=== PATIENT | male | born 1940 | race Caucasian/White ===

== ENCOUNTER 2018-01-05 15:57 | Inpatient (IN) | payer MEDICARE ==
[2018-01-05 17:43] LABS: Anisocytosis Slight; Basophils % (A) 1 %; Eosinophils # (A) 0.1 k/uL (0-0.7); Eosinophils % (A) 3 %; HCT 25.2 % (39.0-53.0); Lymphocytes # (A) 0.6 k/uL (1.0-4.8); Lymphocytes % (A) 26 %; MCV 96.9 fL (80.0-100.0); Macrocytosis Slight; Mean Platelet Volume 9.3; Monocytes # (A) 0.1 k/uL (0-1.0); Monocytes % (A) 2 %; Neutrophils # (A) 1.6 k/uL (1.3-7.7); Neutrophils % (A) 67 %; RDW 19.7 % (11.5-15.5); WBC 2.3 k/uL (3.8-10.6)
[2018-01-05 17:47] LABS: HGB 8.3 gm/dL (13.0-17.5)
[2018-01-05 17:50] LABS: INR 1.2 (<1.2); Prothrombin Time 11.6 sec (9.0-12.0)
[2018-01-05 17:55] LABS: ALT 243 U/L (21-72); AST 192 U/L (17-59); Albumin 2.8 g/dL (3.5-5.0); Alkaline Phosphatase 796 U/L (38-126); Amylase 55 U/L (30-110); Anion Gap 8 mmol/L; Blood Urea Nitrogen 24 mg/dL (9-20); Calcium 7.8 mg/dL (8.4-10.2); Carbon Dioxide 22 mmol/L (22-30); Chloride 102 mmol/L (98-107); Glucose 100 mg/dL (74-99); Lipase 223 U/L (23-300); Potassium 3.9 mmol/L (3.5-5.1); Sodium 132 mmol/L (137-145); Total Bilirubin 10.1 mg/dL (0.2-1.3); Total Protein 5.5 g/dL (6.3-8.2)
[2018-01-05 18:02] LABS: Platelet Count 62 k/uL (150-450); Target Cells Present; Tear Drop Cells Present
[2018-01-05 18:03] LABS: Dohle Bodies Present
[2018-01-05 18:19] LABS: Appearance,Urine Clear (Clear); Bilirubin,Urine 2+ (Negative); Blood,Urine Negative (Negative); Color,Urine Dark Brown; Glucose,Urine (UA) Negative (Negative); Ketones,Urine Negative (Negative); Leukocyte Esterase,Urine Negative (Negative); Nitrite,Urine Negative (Negative); Protein,Urine Trace (Negative); Specific Gravity,Urine 1.023 (1.001-1.035)
--- NOTE | 2018-01-05 18:57 | CT ---
EXAMINATION TYPE: CT abdomen pelvis w con DATE OF EXAM: 01/05/2018 COMPARISON: None HISTORY: Jaundice and abnormal labs CT DLP: 1147 mGycm Automated exposure control for dose reduction was used. TECHNIQUE: Helical acquisition of images was performed from the lung bases through the pelvis. CONTRAST: Performed without Oral Contrast and with IV Contrast, patient injected with 100 mL of Isovue 300. FINDINGS: LIVER/GB: There is mild/moderate dilation of the intrahepatic biliary tree, both the right and left h epatic lobes, with obstruction appearing to be secondary to 7 cm mean diameter dominant ill-defined r ight centimeters mean diameter hypodense lesion in the caudal posterior segment of the right hepatic lobe, intimately related to the kemar hepatis and bare area of the gallbladder. There are at least 3 other similar appearing focal liver lesions. * Immediately anterolateral to this dominant lesion is a 2 cm posterior segment right hepatic lobe h ypodense lesion. * Just posterior to the dominant lesion is a 3 cm hypodense posterior segment right hepatic lobe les ion. * Finally, in the upper medial segment left hepatic lobe is a 3 cm ill-defined hypodense lesion. The liver demonstrates diffusely scalloped margins with atrophy of the left hepatic lobe and prominen ce of the caudate lobe. There is prominence in the caliber of the portal splenic venous system and ev idence of abdominal varices. PANCREAS: No significant abnormality is seen. SPLEEN: No significant abnormality is seen. ADRENALS: No significant abnormality is seen. KIDNEYS: No significant abnormality is seen. FREE AIR: No free air is visualized. RETROPERITONEAL ADENOPATHY: None visualized REPRODUCTIVE ORGANS: No significant abnormality is seen URINARY BLADDER: No significant abnormality is seen. PELVIC ADENOPATHY: None visualized. OSSEOUS STRUCTURES: No focal lesions. BOWEL: Hepatic flexure shows indistinctness, extending to the liver capsule through the right anterio r pararenal space. This has the appearance of desmoplastic reactive edematous change rather than prim silvana colonic process. G-tube is in place. No other bowel findings. VASCULATURE: No acute findings. LUNG BASES: There is hyperinflation and evidence of mild cylindrical bronchiectasis. IMPRESSION: HEPATIC BILIARY OBSTRUCTION SECONDARY TO NEOPLASM.
--- NOTE | 2018-01-05 19:48 | ED ---
General Adult HPI - General Chief complaint: Recheck/Abnormal Lab/Rx Stated complaint: abn labs Time Seen by Provider: 01/05/18 16:53 Source: patient, family Mode of arrival: wheelchair Limitations: no limitations - History of Present Illness Initial comments: 77 years old male comes in with the jaundice he was at Dr. Garcia office today he was sent to ER since family noticed the obvious jaundice and is complaining about the mild abdominal pain he hasn't slept for 3 days feels quite weak appetite is down. Denies any headache no neck stiffness no chest pain or shortness of breath no abdominal pain no frequency urgency dysuria. He is aware that he has esophageal cancer and that spread into the ( - Related Data Home Medications Medication Instructions Recorded Confirmed Albuterol Sulfate [Proair Hfa] 1 puff INHALATION RT-DAILY 12/28/17 01/05/18 Fluticasone/Salmeterol [Advair 1 puff INHALATION RT-BID 12/28/17 01/05/18 250-50 Diskus] Morphine Sulfate ER [Ms Contin] 30 mg PO Q12HR PRN 12/28/17 01/05/18 Prochlorperazine [Compazine] 10 mg PO QID PRN 12/28/17 01/05/18 Tamsulosin [Flomax] 0.4 mg PO DAILY 12/28/17 01/05/18 Temazepam [Restoril] 15 mg PO HS 12/28/17 01/05/18 Tiotropium [place] [Spiriva 1 puff INHALATION RT-DAILY 12/28/17 01/05/18 Respimat] Doxazosin Mesylate 8 mg PO DAILY 01/05/18 01/05/18 Enalapril/Hydrochlorothiazide 1 tab PO DAILY 01/05/18 01/05/18 [Enalapril-Hctz 10-25 mg Tablet] Esomeprazole Magnesium [NexIUM] 40 mg PO DAILY 01/05/18 01/05/18 Ipratropium-Albuterol Nebulize 3 ml INHALATION RT-BID 01/05/18 01/05/18 [Duoneb 0.5 mg-3 mg/3 ml Soln] Lidocaine-Prilocaine Cream [Emla 1 applic TOPICAL DAILY PRN 01/05/18 01/05/18 Cream 2.5%/2.5%] oxyCODONE ER [OxyCONTIN] 10 mg PO HS PRN 01/05/18 01/05/18 Allergies Allergy/AdvReac Type Severity Reaction Status Date / Time No Known Allergies Allergy Verified 01/05/18 17:50 Review of Systems ROS Statement: Those systems with pertinent positive or pertinent negative responses have been documented in the HPI. ROS Other: All systems not noted in ROS Statement are negative. Past Medical History Past Medical History: Cancer, COPD, Hyperlipidemia, Hypertension, Osteoarthritis (OA), Prostate Disorder, Sleep Apnea/CPAP/BIPAP Additional Past Medical History / Comment(s): HOME OXYGEN PRN. 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 History of Any Multi-Drug Resistant Organisms: None Reported Past Surgical History: Hernia Repair, Orthopedic Surgery Additional Past Surgical History / Comment(s): VASECTOMY. ESOPHAGEAL SURGERY. Past Anesthesia/Blood Transfusion Reactions: No Reported Reaction Past Psychological History: Anxiety, Depression Smoking Status: Former smoker Past Alcohol Use History: None Reported Past Drug Use History: None Reported General Exam - General Exam Comments Initial Comments: General: The patient is awake and alert, obvious jaundice noticed Skin: Skin is warm and dry and no rashes or lesions are noted. Eye: Pupils are equal, round and reactive to light, extra-ocular movements are intact; there is normal conjunctiva bilaterally. Ears, nose, mouth and throat: There are moist mucous membranes and no oral lesions. Neck: The neck is supple, there is no tenderness or JVD. Cardiovascular: There is a regular rate and rhythm. No murmur, rub or gallop is appreciated. Respiratory: To auscultation bilateral, no wheezing no rhonchi no distress respiratory mireles noticed Gastrointestinal: Noticed feeding tube in place no actual focal area of tenderness noticed small sounds are positive slightly tender over right upper quadrant area no guarding no rebounds Back: There is no tenderness to palpation in the midline. There is no obvious deformity. Musculoskeletal: Normal ROM, no tenderness, There is no pedal edema. There is no calf tenderness or swelling. No cords were appreciated. Neurological: CN II-XII intact, Cranial nerves III through XII are intact. There are no obvious motor or sensory deficits. Coordination appears grossly intact. Speech is normal. Psychiatric: Cooperative, appropriate mood & affect, normal judgment. Limitations: no limitations Course Vital Signs 01/05/18 01/05/18 01/05/18 16:38 16:40 17:34 Temperature 98.7 F Pulse Rate 87 72 Respiratory 16 18 18 Rate Blood Pressure 115/75 126/63 O2 Sat by Pulse 97 97 Oximetry 01/05/18 01/05/18 17:40 18:40 Temperature Pulse Rate 81 82 Respiratory 18 18 Rate Blood Pressure 132/78 133/76 O2 Sat by Pulse 97 96 Oximetry Review of labs noticed his total bili is 10.1 AST ALT and alk phos days are elevated hemoglobin is 8.3. His hemoglobin is 10.[address] of the abdomen abdomen showed shows hepatic hepatobiliary obstruction because of the neoplasm. CT was reviewed findings were discussed with the patient, he be admitted to Dr. Sousa's service and be consulted along with the Dr. Garcia Medical Decision Making - Lab Data Result diagrams: 01/05/18 17:28 01/05/18 17:28 Lab Results 01/05/18 01/05/18 01/05/18 Range/Units 17:28 17:28 17:28 WBC 2.3 L (3.8-10.6) k/uL RBC 2.60 L (4.30-5.90) m/uL Hgb 8.3 L D (13.0-17.5) gm/dL Hct 25.2 L (39.0-53.0) % MCV 96.9 (80.0-100.0) fL MCH 32.0 (25.0-35.0) pg MCHC 33.0 (31.0-37.0) g/dL RDW 19.7 H (11.5-15.5) % Plt Count 62 L D (150-450) k/uL Neutrophils % 67 % Lymphocytes % 26 % Monocytes % 2 % Eosinophils % 3 % Basophils % 1 % Neutrophils # 1.6 (1.3-7.7) k/uL Lymphocytes # 0.6 L (1.0-4.8) k/uL Monocytes # 0.1 (0-1.0) k/uL Eosinophils # 0.1 (0-0.7) k/uL Basophils # 0.0 (0-0.2) k/uL Manual Slide Review Performed Dohle Bodies Present Anisocytosis Slight Macrocytosis Slight Target Cells Present Tear Drop Cells Present PT (9.0-12.0) sec INR (<1.2) Sodium 132 L (137-145) mmol/L Potassium 3.9 (3.5-5.1) mmol/L Chloride 102 (98-107) mmol/L Carbon Dioxide 22 (22-30) mmol/L Anion Gap 8 mmol/L BUN 24 H (9-20) mg/dL Creatinine 0.60 L (0.66-1.25) mg/dL Est GFR (CKD-EPI)AfAm >90 (>60 ml/min/1.73 sqM) Est GFR (CKD-EPI)NonAf >90 (>60 ml/min/1.73 sqM) Glucose 100 H (74-99) mg/dL Plasma Lactic Acid Julian 0.9 (0.7-2.0) mmol/L Calcium 7.8 L (8.4-10.2) mg/dL Total Bilirubin 10.1 H (0.2-1.3) mg/dL AST 192 H (17-59) U/L ALT 243 H (21-72) U/L Alkaline Phosphatase 796 H (38-126) U/L Troponin I (0.000-0.034) ng/mL Total Protein 5.5 L (6.3-8.2) g/dL Albumin 2.8 L (3.5-5.0) g/dL Amylase 55 (30-110) U/L Lipase 223 (23-300) U/L Urine Color Urine Appearance (Clear) Urine pH (5.0-8.0) Ur Specific [place] (1.001-1.035) Urine Protein (Negative) Urine Glucose (UA) (Negative) Urine Ketones (Negative) Urine Blood (Negative) Urine Nitrite (Negative) Urine Bilirubin (Negative) Urine Urobilinogen (<2.0) mg/dL Ur Leukocyte Esterase (Negative) 01/05/18 01/05/18 01/05/18 Range/Units 17:28 17:28 18:00 WBC (3.8-10.6) k/uL RBC (4.30-5.90) m/uL Hgb (13.0-17.5) gm/dL Hct (39.0-53.0) % MCV (80.0-100.0) fL MCH (25.0-35.0) pg MCHC (31.0-37.0) g/dL RDW (11.5-15.5) % Plt Count (150-450) k/uL Neutrophils % % Lymphocytes % % Monocytes % % Eosinophils % % Basophils % % Neutrophils # (1.3-7.7) k/uL Lymphocytes # (1.0-4.8) k/uL Monocytes # (0-1.0) k/uL Eosinophils # (0-0.7) k/uL Basophils # (0-0.2) k/uL Manual Slide Review Dohle Bodies Anisocytosis Macrocytosis Target Cells Tear Drop Cells PT 11.6 (9.0-12.0) sec INR 1.2 H (<1.2) Sodium (137-145) mmol/L Potassium (3.5-5.1) mmol/L Chloride (98-107) mmol/L Carbon Dioxide (22-30) mmol/L Anion Gap mmol/L BUN (9-20) mg/dL Creatinine (0.66-1.25) mg/dL Est GFR (CKD-EPI)AfAm (>60 ml/min/1.73 sqM) Est GFR (CKD-EPI)NonAf (>60 ml/min/1.73 sqM) Glucose (74-99) mg/dL Plasma Lactic Acid Julian (0.7-2.0) mmol/L Calcium (8.4-10.2) mg/dL Total Bilirubin (0.2-1.3) mg/dL AST (17-59) U/L ALT (21-72) U/L Alkaline Phosphatase (38-126) U/L Troponin I <0.012 (0.000-0.034) ng/mL Total Protein (6.3-8.2) g/dL Albumin (3.5-5.0) g/dL Amylase (30-110) U/L Lipase (23-300) U/L Urine Color Dark Brown Urine Appearance Clear (Clear) Urine pH 6.0 (5.0-8.0) Ur Specific [place] 1.023 (1.001-1.035) Urine Protein Trace H (Negative) Urine Glucose (UA) Negative (Negative) Urine Ketones Negative (Negative) Urine Blood Negative (Negative) Urine Nitrite Negative (Negative) Urine Bilirubin 2+ H (Negative) Urine Urobilinogen 4.0 (<2.0) mg/dL Ur Leukocyte Esterase Negative (Negative) Disposition Clinical Impression: Liver mass, Jaundice Disposition: ADMITTED IP TO THIS HOSP Condition: Good Referrals: Martin Ron MD [Primary Care Provider] - 1-2 days
[2018-01-05] MEDS ORDERED: NALOXONE 0.4 MG/ML 1 ML VIAL IV PRN (19:54)
[2018-01-05] MEDS ORDERED: ONDANSETRON 4 MG/2 ML VIAL IVP PRN (19:54)
[2018-01-05] MEDS ORDERED: MORPHINE SULFATE 4 MG/ML SYRINGE IV PRN (19:54)
[2018-01-05] MEDS ORDERED: ACETAMINOPHEN TAB 325 MG TAB PO PRN (19:54)
[2018-01-05] MEDS ORDERED: PROCHLORPERAZINE 10 MG TAB PO PRN (19:59)
[2018-01-05] MEDS ORDERED: oxyCODONE ER 10 MG TAB.ER.12H PO PRN (19:59)
[2018-01-05] MEDS ORDERED: LIDOCAINE-PRILOCAINE 2.5-2.5% CREAM 5 GM TUBE TOPICAL PRN (19:59)
[2018-01-05] MEDS ORDERED: MORPHINE SULFATE ER 30 MG TABLET PO PRN (19:59)
[2018-01-05] MEDS: IPRATROPIUM-ALBUTEROL 3 ML NEB INHALATION SCH (20:41)
[2018-01-05] MEDS: SYMBICORT 80-4.5 MCG INHALER INHALATION SCH (20:41)
[2018-01-05] MEDS: DEXTROSE 5%-0.9% NACL 1,000 ML IV SCH (22:08)
[2018-01-05] MEDS: TEMAZEPAM 15 MG CAP PO SCH (22:09)
[2018-01-06] MEDS ORDERED: ALBUTEROL NEBULIZED 2.5 MG/3 ML INHALATION SCH (08:00)
[2018-01-06] MEDS ORDERED: NON-FORMULARY DRUG (Tiotropium Bromide [Spiriva Respimat] 1 PUFF) INHALATION SCH (08:00)
[2018-01-06] MEDS: SYMBICORT 80-4.5 MCG INHALER INHALATION SCH ×2 (08:17→20:33)
[2018-01-06] MEDS: IPRATROPIUM-ALBUTEROL 3 ML NEB INHALATION SCH ×2 (08:17→20:33)
[2018-01-06] MEDS ORDERED: LISINOPRIL 20 MG TAB PO SCH (09:00)
[2018-01-06] MEDS ORDERED: DOXAZOSIN 4 MG TAB PO SCH (09:00)
[2018-01-06] MEDS ORDERED: HYDROCHLOROTHIAZIDE 25 MG TAB PO SCH (09:00)
[2018-01-06] MEDS: PANTOPRAZOLE 40 MG TABLET PO SCH (09:43)
[2018-01-06] MEDS: TAMSULOSIN 0.4 MG CAP.ER.24H PO SCH (09:45)
--- NOTE | 2018-01-06 11:23 | P.CONS ---
History of Present Illness - Reason for Consult Consult date: 01/06/18 Hepatobiliary tumor Requesting physician: Steffen Recinos - History of Present Illness 77-year-old gentleman diagnosed June 2017 in [place] with with metastatic esophageal cancer s/p EGD/colonoscopy with feeding gastrostomy tube placement. Admitted with mild abdominal pain and new onset jaundice [address] abdomen and pelvis reported mild to moderate dilatation of intrahepatic biliary tree both right and left hepatic lobes with obstruction secondary to neoplasm. No abnormalities seen in the spleen or pancreas. He received chemo/radiation but only had 10 treatments of radiation "it did not work". Last EGD about 6 weeks ago to his memory the "cancer was gone". Presently passed 2 red blood tinged BM this morning "its hemorrhoidal". Denies F /C/hematemesis or melena. Admission white count 2.3. Hemoglobin 8.3. Platelet 62,000. INR 1.2. Total bilirubin 10.1. AST 192. ALT 243. AP 796. Lipase 223. No previous labs to review for comparison. Afebrile. Denies hematemesis hematochezia melena. Review of Systems Constitutional: Denies fever, chills, sweats. HEENT: Negative for migraines, blurred vision or loss, earaches, drainage, tinnitus, oral mucosal lesions, dysphagia, or odynophagia. Cardiac: Negative for chest pain, arrhythmias, or palpitation. Respiratory: Negative for shortness of breath, hemoptysis, cough, or sputum production. Gastrointestinal: See HPI for pertinent findings. Genitourinary: Negative for hematuria, urgency, frequency, polyuria, dysuria, or penile discharge. Musculoskeletal: Negative for muscle aches, swelling, arthritis, and arthralgias. Neurologic: Negative for stroke or TIA. Endocrine: Negative for thyroid problems. Skin: Negative for rash or itching. Psychiatric: Negative history for depression and anxietys Past Medical History Past Medical History: Cancer, COPD, Hyperlipidemia, Hypertension, Osteoarthritis (OA), Pneumonia, Prostate Disorder, Sleep Apnea/CPAP/BIPAP Additional Past Medical History / Comment(s): HOME OXYGEN PRN.lt eye cataract that needs to have sx had rt cataract done already, pt stated he has esophageal cancer with mets to bone and liver and recieved first chemo tx 1 week ago. History of Any Multi-Drug Resistant Organisms: None Reported Past Surgical History: Hernia Repair, Orthopedic Surgery Additional Past Surgical History / Comment(s): VASECTOMY.rt knee arthroscopy, rt eye cataract. egd/dilations/bx Past Anesthesia/Blood Transfusion Reactions: No Reported Reaction Smoking Status: Former smoker - Past Family History Mother Family Medical History: Coronary Artery Disease (CAD), Dementia Additional Family Medical History / Comment(s): "heart disease" Father Additional Family Medical History / Comment(s): "heart disease" Medications and Allergies Home Medications Medication Instructions Recorded Confirmed Type Albuterol Sulfate [Proair Hfa] 1 puff INHALATION RT-DAILY 12/28/17 01/06/18 History Fluticasone/Salmeterol [Advair 1 puff INHALATION RT-BID 12/28/17 01/06/18 History 250-50 Diskus] Morphine Sulfate ER [Ms Contin] 30 mg PO Q12HR PRN 12/28/17 01/06/18 History Prochlorperazine [Compazine] 10 mg PO QID PRN 12/28/17 01/06/18 History Tamsulosin [Flomax] 0.4 mg PO HS 12/28/17 01/06/18 History Temazepam [Restoril] 15 mg PO HS 12/28/17 01/06/18 History Tiotropium [place] [Spiriva 1 puff INHALATION RT-DAILY 12/28/17 01/06/18 History Respimat] Esomeprazole Magnesium [NexIUM] 40 mg PO DAILY 01/05/18 01/06/18 History Ipratropium-Albuterol Nebulize 3 ml INHALATION RT-BID 01/05/18 01/06/18 History [Duoneb 0.5 mg-3 mg/3 ml Soln] Lidocaine-Prilocaine Cream [Emla 1 applic TOPICAL DAILY PRN 01/05/18 01/06/18 History Cream 2.5%/2.5%] oxyCODONE ER [OxyCONTIN] 10 mg PO HS PRN 01/05/18 01/06/18 History Allergies Allergy/AdvReac Type Severity Reaction Status Date / Time No Known Allergies Allergy Verified 01/05/18 17:50 Physical Exam Vitals: Vital Signs Temp Pulse Pulse Resp BP BP Pulse Ox 01/06/18 08:28 80 01/06/18 08:17 80 01/06/18 07:00 97.9 F 64 16 111/69 96 01/05/18 21:45 17 01/05/18 21:40 98.0 F 80 16 123/76 97 01/05/18 19:50 76 18 131/75 96 01/05/18 18:40 82 18 133/76 96 01/05/18 17:40 81 18 132/78 97 01/05/18 17:34 18 01/05/18 16:40 72 18 126/63 97 01/05/18 16:38 98.7 F 87 16 115/75 97 Intake and Output 01/05/18 01/06/18 01/06/18 22:59 06:59 14:59 Intake Total 590 600 Balance 590 600 Intake: Intake, IV Titration 600 Amount Dextrose 5%-0.9% NaCl 1, 600 000 ml @ 75 mls/hr IV . [id number] EDDY Rx#:[id number] Oral 590 Other: Voiding Method Toilet Toilet # Voids 3 Weight 68.039 kg 68.039 kg General appearance: The patient is alert, oriented, in no acute distress. Jaundice HET: Head is normocephalic and atraumatic. Pupils are equal and reactive. Sclera icteric Oropharynx is clear without lesions. Neck: Supple without lymphadenopathy. Trachea midline. Heart: S1 S2. Regular rate and rhythm. Lungs: No crackles or wheezes are heard. Abdomen: Soft, nontender, nondistended with bowel sounds. Gastrostomy tube present No peritoneal signs. No palpable organomegaly or masses. Extremities: Normal skin color and turgor. No cyanosis, rash, ulceration, clubbing, or edema. Radial and pedal pulses are 2/4 bilaterally. Neurological: No focal deficits. Strength and sensation are grossly intact. Results CBC & Chem 7: 01/07/18 06:51 01/07/18 06:51 Labs: Abnormal Lab Results - Last 24 Hours (Table) 01/05/18 01/05/18 01/05/18 Range/Units 17:28 17:28 17:28 WBC 2.3 L (3.8-10.6) k/uL RBC 2.60 L (4.30-5.90) m/uL Hgb 8.3 L D (13.0-17.5) gm/dL Hct 25.2 L (39.0-53.0) % RDW 19.7 H (11.5-15.5) % Plt Count 62 L D (150-450) k/uL Lymphocytes # 0.6 L (1.0-4.8) k/uL INR 1.2 H (<1.2) Sodium 132 L (137-145) mmol/L BUN 24 H (9-20) mg/dL Creatinine 0.60 L (0.66-1.25) mg/dL Glucose 100 H (74-99) mg/dL Calcium 7.8 L (8.4-10.2) mg/dL Total Bilirubin 10.1 H (0.2-1.3) mg/dL AST 192 H (17-59) U/L ALT 243 H (21-72) U/L Alkaline Phosphatase 796 H (38-126) U/L Total Protein 5.5 L (6.3-8.2) g/dL Albumin 2.8 L (3.5-5.0) g/dL Urine Protein (Negative) Urine Bilirubin (Negative) 01/05/18 Range/Units 18:00 WBC (3.8-10.6) k/uL RBC (4.30-5.90) m/uL Hgb (13.0-17.5) gm/dL Hct (39.0-53.0) % RDW (11.5-15.5) % Plt Count (150-450) k/uL Lymphocytes # (1.0-4.8) k/uL INR (<1.2) Sodium (137-145) mmol/L BUN (9-20) mg/dL Creatinine (0.66-1.25) mg/dL Glucose (74-99) mg/dL Calcium (8.4-10.2) mg/dL Total Bilirubin (0.2-1.3) mg/dL AST (17-59) U/L ALT (21-72) U/L Alkaline Phosphatase (38-126) U/L Total Protein (6.3-8.2) g/dL Albumin (3.5-5.0) g/dL Urine Protein Trace H (Negative) Urine Bilirubin 2+ H (Negative) CT scan - abdomen: report reviewed (Dr. 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 Oncology records requested for review. EGD/ERCP biliary stent discussed. 2. Tube feeds as tolerated. Nothing by mouth after midnight. 3. Protonix 40 mg IV twice daily. CMP PT/INR CBC monitoring. The filtration supervisor has discussed the risks, benefits and alternative therapies for the above-mentioned procedure and for both sedation/analgesia as well as necessary blood product administration, if indicated, as they pertain to this patient. The patient has indicated understanding and acceptance of the risks and procedures discussed. Thank you for this kind referral and the opportunity to participate in the care of your patient. This consultation was discussed with Dr. Rayo. The impression and plan of care have been directed as dictated.
[2018-01-06] MEDS ORDERED: BISACODYL 10 MG SUPP RECTAL STA (13:23)
--- NOTE | 2018-01-06 15:22 | P.HPIM ---
History of Present Illness H&P Date: 01/06/18 Chief Complaint: Jaundice, abdominal pain, weakness, decreased appetite This is a 77-year-old male patient of Dr. Martin Ron with past medical history significant for esophageal cancer diagnosed in June 2017 currently undergoing chemotherapy and has had radiation therapy to the bones in the upper thorax. Patient is undergone previous EGDs and esophageal dilatations 3 in the past. 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 Also history of COPD, hyperlipidemia, hypertension, osteoarthritis, benign prostatic hypertrophy, obstructive sleep apnea. Patient has been treated at the [facility] in [place] and started chemotherapy in July of this year. In October his oncologist changed his chemotherapy and he received 2 doses of this new medication which made him extremely's ill with diarrhea, nausea, weakness. He then returned to [place] 3 weeks ago and is now followed by Dr. Garcia. Dr. Garcia kept him on the second chemotherapy treatment and decrease the dose by 20%. Patient was sent by Dr. Garcia to [facility] emergency center for admission. Patient states he has occasional sharp pain in his right abdomen. He is a little bit nauseated. He does state his urine has changed to bright yellow almost brown color. He did have a bowel movement this morning but feels constipated. He denies any itchiness. Since his last chemotherapy, patient developed diarrhea that was then followed by constipation. Patient also has a PEG tube in place and tube feedings have been resumed. He eats a small amount of soft food by mouth. CAT scan of the abdomen and pelvis revealed hepatobiliary obstruction secondary to neoplasm. GI consult was added and patient was admitted to the oncology unit. Patient presented with pancytopenia with white count of 2.3, hemoglobin 8.3, platelet count 62. Creatinine 0.60. Lactic acid was 0.9. Total bilirubin 10.1, AST 192, ALT 243, alkaline phosphatase 796. Amylase and lipase were normal. Urine was dark brown with 2+ bilirubin. Review of Systems All systems: negative Constitutional: Reports fatigue, Reports lethargy, Reports malaise, Reports poor appetite, Reports weakness, Reports weight loss, Denies chills, Denies fever Eyes: denies blurred vision, denies pain Ears, nose, mouth and throat: Denies headache, Denies sore throat Cardiovascular: Denies chest pain, Denies decreased exercise tolerance, Denies dyspnea on exertion, Denies edema, Denies leg edema, Denies shortness of breath , Denies syncope Respiratory: Denies cough, Denies cough with sputum, Denies dyspnea, Denies excessive sputum, Denies hemoptysis, Denies home oxygen, Denies wheezing Gastrointestinal: Reports abdominal pain, Reports constipation, Reports diarrhea , Reports loss of appetite, Reports nausea, Reports vomiting Musculoskeletal: Denies myalgias Integumentary: Denies pruritus, Denies rash Neurological: Denies numbness, Denies weakness Psychiatric: Denies anxiety, Denies depression Endocrine: Denies fatigue, Denies weight change Past Medical History Past Medical History: Cancer, COPD, Hyperlipidemia, Hypertension, Osteoarthritis (OA), Pneumonia, Prostate Disorder, Sleep Apnea/CPAP/BIPAP Additional Past Medical History / Comment(s): HOME OXYGEN PRN.lt eye cataract that needs to have sx had rt cataract done already, pt stated he has esophageal cancer with mets to bone and liver on chemotherapy and status post radiation for bone metastases. History of Any Multi-Drug Resistant Organisms: None Reported Past Surgical History: Hernia Repair, Orthopedic Surgery Additional Past Surgical History / Comment(s): VASECTOMY.rt knee arthroscopy, rt eye cataract removal and intraocular lens implants, multiple EGDs, 3 esophageal dilatations, esophageal biopsy Past Anesthesia/Blood Transfusion Reactions: No Reported Reaction Smoking Status: Former smoker Additional Past Alcohol Use History / Comment(s): Patient was a smoker starting at age 15 1 pack a day and quit in 1990. No illicit drug use. Patient lives with his . They winter in [place] and lived in [place] for the bond. 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 - Past Family History Mother Family Medical History: Coronary Artery Disease (CAD), Dementia Additional Family Medical History / Comment(s): "heart disease" Father Additional Family Medical History / Comment(s): "heart disease" Medications and Allergies Home Medications Medication Instructions Recorded Confirmed Type Albuterol Sulfate [Proair Hfa] 1 puff INHALATION RT-DAILY 12/28/17 01/06/18 History Fluticasone/Salmeterol [Advair 1 puff INHALATION RT-BID 12/28/17 01/06/18 History 250-50 Diskus] Morphine Sulfate ER [Ms Contin] 30 mg PO Q12HR PRN 12/28/17 01/06/18 History Prochlorperazine [Compazine] 10 mg PO QID PRN 12/28/17 01/06/18 History Tamsulosin [Flomax] 0.4 mg PO HS 12/28/17 01/06/18 History Temazepam [Restoril] 15 mg PO HS 12/28/17 01/06/18 History Tiotropium [place] [Spiriva 1 puff INHALATION RT-DAILY 12/28/17 01/06/18 History Respimat] Esomeprazole Magnesium [NexIUM] 40 mg PO DAILY 01/05/18 01/06/18 History Ipratropium-Albuterol Nebulize 3 ml INHALATION RT-BID 01/05/18 01/06/18 History [Duoneb 0.5 mg-3 mg/3 ml Soln] Lidocaine-Prilocaine Cream [Emla 1 applic TOPICAL DAILY PRN 01/05/18 01/06/18 History Cream 2.5%/2.5%] oxyCODONE ER [OxyCONTIN] 10 mg PO HS PRN 01/05/18 01/06/18 History Allergies Allergy/AdvReac Type Severity Reaction Status Date / Time No Known Allergies Allergy Verified 01/05/18 17:50 Physical Exam Vitals: Vital Signs Temp Pulse Pulse Resp BP BP Pulse Ox 01/06/18 08:28 80 01/06/18 08:17 80 01/06/18 07:00 97.9 F 64 16 111/69 96 01/05/18 21:45 17 01/05/18 21:40 98.0 F 80 16 123/76 97 01/05/18 19:50 76 18 131/75 96 01/05/18 18:40 82 18 133/76 96 01/05/18 17:40 81 18 132/78 97 01/05/18 17:34 18 01/05/18 16:40 72 18 126/63 97 01/05/18 16:38 98.7 F 87 16 115/75 97 Intake and Output 01/05/18 01/06/18 01/06/18 22:59 06:59 14:59 Intake Total 590 600 Balance 590 600 Intake: Intake, IV Titration 600 Amount Dextrose 5%-0.9% NaCl 1, 600 000 ml @ 75 mls/hr IV . [id number] Rx#:[id number] Oral 590 Other: Voiding Method Toilet Toilet # Voids 3 Weight 68.039 kg 68.039 kg Gen: This is a thin 77-year-old male. Patient is sitting up in a chair. Generalized jaundice noted. HEENT: Head is atraumatic, normocephalic. Pupils equal, round. Sclerae is icteric. NECK: Supple. No JVD. No lymphadenopathy. No thyromegaly. LUNGS: Clear to auscultation. No wheezes or rhonchi. No intercostal retractions. HEART: Regular rate and rhythm. No murmur. ABDOMEN: Soft. Bowel sounds are present. No masses. Mild right upper quadrant tenderness. Feeding tube in place. EXTREMITIES: No pedal edema. No calf tenderness. NEUROLOGICAL: Patient is awake, alert and oriented x3. Cranial nerves 2 through 12 are grossly intact. Results CBC & Chem 7: 01/05/18 17:28 01/05/18 17:28 Labs: Abnormal Lab Results - Last 24 Hours (Table) 01/05/18 01/05/18 01/05/18 Range/Units 17:28 17:28 17:28 WBC 2.3 L (3.8-10.6) k/uL RBC 2.60 L (4.30-5.90) m/uL Hgb 8.3 L D (13.0-17.5) gm/dL Hct 25.2 L (39.0-53.0) % RDW 19.7 H (11.5-15.5) % Plt Count 62 L D (150-450) k/uL Lymphocytes # 0.6 L (1.0-4.8) k/uL INR 1.2 H (<1.2) Sodium 132 L (137-145) mmol/L BUN 24 H (9-20) mg/dL Creatinine 0.60 L (0.66-1.25) mg/dL Glucose 100 H (74-99) mg/dL Calcium 7.8 L (8.4-10.2) mg/dL Total Bilirubin 10.1 H (0.2-1.3) mg/dL AST 192 H (17-59) U/L ALT 243 H (21-72) U/L Alkaline Phosphatase 796 H (38-126) U/L Total Protein 5.5 L (6.3-8.2) g/dL Albumin 2.8 L (3.5-5.0) g/dL Urine Protein (Negative) Urine Bilirubin (Negative) 01/05/18 Range/Units 18:00 WBC (3.8-10.6) k/uL RBC (4.30-5.90) m/uL Hgb (13.0-17.5) gm/dL Hct (39.0-53.0) % RDW (11.5-15.5) % Plt Count (150-450) k/uL Lymphocytes # (1.0-4.8) k/uL INR (<1.2) Sodium (137-145) mmol/L BUN (9-20) mg/dL Creatinine (0.66-1.25) mg/dL Glucose (74-99) mg/dL Calcium (8.4-10.2) mg/dL Total Bilirubin (0.2-1.3) mg/dL AST (17-59) U/L ALT (21-72) U/L Alkaline Phosphatase (38-126) U/L Total Protein (6.3-8.2) g/dL Albumin (3.5-5.0) g/dL Urine Protein Trace H (Negative) Urine Bilirubin 2+ H (Negative) Thrombosis Risk Factor Assmnt - DVT/VTE Prophylaxis DVT/VTE Prophylaxis: Pharmacologic Prophylaxis ordered - Choose All That Apply Any of the Below Risk Factors Present?: Yes Each Factor Represents 1 point: Serious lung disease incl. pneumonia (< 1month) Other Risk Factors: Yes Each Risk Factor Represents 2 Points: Age 61-74 years, Malignancy Thrombosis Risk Factor Assessment Total Risk Factor Score: 5 Thrombosis Risk Factor Assessment Level: High Risk Assessment and Plan Plan: 1. Obstructive jaundice secondary to esophageal cancer and metastatic disease of the liver. GI consult is appreciated. Plan is for EGD/ERCP biliary stent tomorrow. 2. Esophageal cancer with metastatic disease to the liver and bone status post radiation therapy and chemotherapy. Oncology consult. 3. Pancytopenia secondary to chemotherapy. 4. Severe protein calorie malnutrition with albumin 2.8. Patient is continued on tube feedings. 5. COPD stable without exacerbation. Continue DuoNeb treatments twice daily and Symbicort twice daily.. 6. Benign prostatic hypertrophy. Continue Flomax 0.4 mg daily. 7. History of hypertension but taken off medications secondary to weight loss. Monitor blood pressure. 8. Chronic pain syndrome. Patient will be continued on OxyContin 10 mg ER at bedtime as needed, MS Contin 30 mg every 12 hours as needed and IV MS as needed for breakthrough pain.. 9. DVT prophylaxis. No heparin due to thrombocytopenia. 10. Gastroesophageal reflux disease and GI prophylaxis. Protonix. Patient will be admitted to the hospital for a minimum of 2 night stay. Discharge plan: Return home Impression and plan of care have been directed as dictated by the signing physician. Nikole Cisneros nurse practitioner acting as scribe for signing physician.
--- NOTE | 2018-01-06 16:54 | P.CONS ---
History of Present Illness - Reason for Consult Consult date: 01/06/18 Metastatic Esophageal Requesting physician: Madelyn Mckay - Chief Complaint Jaundice - History of Present Illness Mr Bustos is a pleasant white male with a known diagnosis of metastatic esophageal adenocarcinoma, in treatment at the [facility] in [place], [place]. the patient moved back to [place] for the summer, and was therefore seen here to establish care. He had presented initially in early 06/18 with complains of progressive difficulty in swallowing more to solids than liquids with a feeling of food sticking in his mid lower chest area. He had lost about 30 pounds since mid 2016. He had an EGD on 06/03/17 which showed a distal esophageal mass with stricture. He had dilation, with biopsy showing poorly differentiated carcinoma , favoring adenocarcinoma. Her-2 was negative by fish. Colonoscopy on the same day was negative other than internal hemorrhoids, diverticulosis, and for pre-4 mm benign tubular adenomas that were removed. CT scan of the chest and abdomen on 06/12/17 showed diffuse thickening of the mid and distal esophagus, with mildly enlarged mediastinal nodes with the largest 1.5 x 2 cm in the precarinal area, as well as a 1.5 cm right hilar node. He had a PET scan on which showed multiple liver metastasis with SUV of 7.8, the known primary malignancy, as well as a destructive lesion in the left transverse process of C7 with SUV 9, left fifth rib, T9-L1 involvement, as well as uptake with SUV of 3.4 in AP window/mediastinal nodes. The patient was started on FOLFOX on 07/01/17. Due to side effects specifically mouth sores and weight loss after cycle 1 dose was reduced by 15% with cycle 2. He tolerated the regimen well with dose reduction. After cycle 3 he developed dysphagia again and had dilatation along with PEG tube placement. He had a repeat PET scan on 09/15/17 that showed a mixed response. With improvement at the primary site, the ribs and the vertebrae. However there appeared to be new disease at C2, as well as progression in the size and number of multiple hepatic metastasis. For reference the largest located at the gallbladder fossa now measured 4.5 x 4.2 x 4 cm with SUV of 7.8 whereas previously it had been 2.6 x 2.6 x 2.6 cm with the same SUV. he received palliative radiation to the C7 completing that on 10/13/17. It did not help with the pain in the left arm. The patient was referred to [facility], and had a liver biopsy, apparently for biomarker testing. He is not aware of any results in that regard. It was recommended that his regimen be changed to FOLFIRI, and that he receive palliative radiation to the esophagus. he refuses radiation, but did start FOLFIRI on 11/04/17. He was admitted to the hospital after cycle 2 because of neutropenic sepsis. He did receive Neupogen. He has also been getting Xgeva for his bone metastases. He was seen for his first consult on 12/23/17. Mr. Bustos presented for follow-up visit with [facility] on 01/05/18. He was noted to have increasing jaundice to sclera and skin. He was directed to [facility] ED for further working up of obstructive Jaundice. CT scan abdomen and pelvis revealed hepatobiliary obstruction. Plan for ERCP with biliary stent on 01/07/18 Review of Systems A 14 point review of systems assessed and completed and all negative except HPI Past Medical History Past Medical History: Cancer, COPD, Hyperlipidemia, Hypertension, Osteoarthritis (OA), Pneumonia, Prostate Disorder, Sleep Apnea/CPAP/BIPAP Additional Past Medical History / Comment(s): HOME OXYGEN PRN.lt eye cataract that needs to have sx had rt cataract done already, pt stated he has esophageal cancer with mets to bone and liver on chemotherapy and status post radiation for bone metastases. History of Any Multi-Drug Resistant Organisms: None Reported Past Surgical History: Hernia Repair, Orthopedic Surgery Additional Past Surgical History / Comment(s): VASECTOMY.rt knee arthroscopy, rt eye cataract removal and intraocular lens implants, multiple EGDs, 3 esophageal dilatations, esophageal biopsy Past Anesthesia/Blood Transfusion Reactions: No Reported Reaction Smoking Status: Former smoker Additional Past Alcohol Use History / Comment(s): Patient was a smoker starting at age 15 1 pack a day and quit in 1990. No illicit drug use. Patient lives with his . They winter in [place] and lived in [place] for the bond. 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 - Past Family History Mother Family Medical History: Coronary Artery Disease (CAD), Dementia Additional Family Medical History / Comment(s): "heart disease" Father Additional Family Medical History / Comment(s): "heart disease" Medications and Allergies Home Medications Medication Instructions Recorded Confirmed Type Albuterol Sulfate [Proair Hfa] 1 puff INHALATION RT-DAILY 12/28/17 01/06/18 History Fluticasone/Salmeterol [Advair 1 puff INHALATION RT-BID 12/28/17 01/06/18 History 250-50 Diskus] Morphine Sulfate ER [Ms Contin] 30 mg PO Q12HR PRN 12/28/17 01/06/18 History Prochlorperazine [Compazine] 10 mg PO QID PRN 12/28/17 01/06/18 History Tamsulosin [Flomax] 0.4 mg PO HS 12/28/17 01/06/18 History Temazepam [Restoril] 15 mg PO HS 12/28/17 01/06/18 History Tiotropium [place] [Spiriva 1 puff INHALATION RT-DAILY 12/28/17 01/06/18 History Respimat] Esomeprazole Magnesium [NexIUM] 40 mg PO DAILY 01/05/18 01/06/18 History Ipratropium-Albuterol Nebulize 3 ml INHALATION RT-BID 01/05/18 01/06/18 History [Duoneb 0.5 mg-3 mg/3 ml Soln] Lidocaine-Prilocaine Cream [Emla 1 applic TOPICAL DAILY PRN 01/05/18 01/06/18 History Cream 2.5%/2.5%] oxyCODONE ER [OxyCONTIN] 10 mg PO HS PRN 01/05/18 01/06/18 History Allergies Allergy/AdvReac Type Severity Reaction Status Date / Time No Known Allergies Allergy Verified 01/05/18 17:50 Physical Exam Vitals: Vital Signs Temp Pulse Pulse Resp BP BP Pulse Ox 01/06/18 16:28 99 F 82 16 120/60 97 01/06/18 08:28 80 01/06/18 08:17 80 01/06/18 07:00 97.9 F 64 16 111/69 96 01/05/18 21:45 17 01/05/18 21:40 98.0 F 80 16 123/76 97 01/05/18 19:50 76 18 131/75 96 01/05/18 18:40 82 18 133/76 96 08/07/18 17:40 81 18 132/78 97 01/05/18 17:34 18 01/05/18 16:40 72 18 126/63 97 Intake and Output 01/06/18 01/06/18 01/06/18 06:59 14:59 22:59 Intake Total 600 Balance 600 Intake: Intake, IV Titration 600 Amount Dextrose 5%-0.9% NaCl 1, 600 000 ml @ 75 mls/hr IV . [id number] Rx#:[id number] Other: Voiding Method Toilet # Voids 3 Weight 68.039 kg - Constitutional General appearance: cooperative, no acute distress - EENT Eyes: EOMI, dentition normal, scleral icterus ENT: NA/AT, normal oropharynx - Neck Supple Neck: normal ROM - Respiratory Respiratory: bilateral: CTA (No increased effort) - Cardiovascular Rhythm: regular Heart sounds: normal: S1, S2 - Gastrointestinal General gastrointestinal: distended, hepatomegaly, soft - Integumentary Integumentary: jaundiced - Neurologic no focal defects Neurologic: CNII-XII intact - Musculoskeletal Musculoskeletal: generalized weakness, strength equal bilaterally - Psychiatric Psychiatric: A&O x's 3, appropriate affect, intact judgment & insight Results CBC & Chem 7: 01/05/18 17:28 01/05/18 17:28 Labs: Abnormal Lab Results - Last 24 Hours (Table) 01/05/18 01/05/18 01/05/18 Range/Units 17:28 17:28 17:28 WBC 2.3 L (3.8-10.6) k/uL RBC 2.60 L (4.30-5.90) m/uL Hgb 8.3 L D (13.0-17.5) gm/dL Hct 25.2 L (39.0-53.0) % RDW 19.7 H (11.5-15.5) % Plt Count 62 L D (150-450) k/uL Lymphocytes # 0.6 L (1.0-4.8) k/uL INR 1.2 H (<1.2) Sodium 132 L (137-145) mmol/L BUN 24 H (9-20) mg/dL Creatinine 0.60 L (0.66-1.25) mg/dL Glucose 100 H (74-99) mg/dL Calcium 7.8 L (8.4-10.2) mg/dL Total Bilirubin 10.1 H (0.2-1.3) mg/dL AST 192 H (17-59) U/L ALT 243 H (21-72) U/L Alkaline Phosphatase 796 H (38-126) U/L Total Protein 5.5 L (6.3-8.2) g/dL Albumin 2.8 L (3.5-5.0) g/dL Urine Protein (Negative) Urine Bilirubin (Negative) 01/05/18 Range/Units 18:00 WBC (3.8-10.6) k/uL RBC (4.30-5.90) m/uL Hgb (13.0-17.5) gm/dL Hct (39.0-53.0) % RDW (11.5-15.5) % Plt Count (150-450) k/uL Lymphocytes # (1.0-4.8) k/uL INR (<1.2) Sodium (137-145) mmol/L BUN (9-20) mg/dL Creatinine (0.66-1.25) mg/dL Glucose (74-99) mg/dL Calcium (8.4-10.2) mg/dL Total Bilirubin (0.2-1.3) mg/dL AST (17-59) U/L ALT (21-72) U/L Alkaline Phosphatase (38-126) U/L Total Protein (6.3-8.2) g/dL Albumin (3.5-5.0) g/dL Urine Protein Trace H (Negative) Urine Bilirubin 2+ H (Negative) CT scan - abdomen: report reviewed CT scan - pelvis: report reviewed (Hepatobiliary obstruction secondary to neoplasm) Assessment and Plan (1) Obstructive jaundice Narrative/Plan: - GI following for Hepatobiliary obstruction secondary to probable progressive metastatic esophageal carcinoma - Plan is for EGD/ERCP biliary stent tomorrow. May need platlet transfusion prior, will check CBC, CMP, Coags in am. - Total Bili 10.1 on 01/05/18, will monitor closely Current Visit: Yes Status: Acute Code(s): K83.8 - OTHER SPECIFIED DISEASES OF BILIARY TRACT SNOMED Code(s): 73875152 (2) Metastasis from esophageal cancer Narrative/Plan: 1. Status PO[facility], with monthly Xgeva and neulasta 12/28/17 Current Visit: Yes Status: Acute Code(s): C79.9 - SECONDARY MALIGNANT NEOPLASM OF UNSPECIFIED SITE; C15.9 - MALIGNANT NEOPLASM OF ESOPHAGUS, UNSPECIFIED SNOMED Code(s): 802111236 (3) Pancytopenia due to antineoplastic chemotherapy Narrative/Plan: 1. Status Post Cheotherapy on 12/28/17 and Neulasta on 12/30/17. 2. No need for [place] stimulating factor secondary to neulasta given, if counts continue to decrease after 10 days post neulasta then it would be resonable to initiate a short acting CSF - Zarxio 3. Monitor CBC daily and transfuse hemoglobin less than 7 or platelet count less than 50 Current Visit: Yes Status: Acute Code(s): D61.810 - ANTINEOPLASTIC CHEMOTHERAPY INDUCED PANCYTOPENIA; T45.1X5A - ADVERSE EFFECT OF ANTINEOPLASTIC AND IMMUNOSUP DRUGS, INIT SNOMED Code(s): 850648471766253 (4) Gastrostomy present Current Visit: Yes Status: Acute Code(s): Z93.1 - GASTROSTOMY STATUS SNOMED Code(s): 356567315 (5) Jaundice Current Visit: Yes Status: Acute Code(s): R17 - UNSPECIFIED JAUNDICE SNOMED Code(s): 80787638 (6) Liver mass Current Visit: Yes Status: Acute Code(s): R16.0 - HEPATOMEGALY, NOT ELSEWHERE CLASSIFIED SNOMED Code(s): 336384341
[2018-01-06] MEDS ORDERED: NA PHOS,M-B/NA PHOS,DI-BA 133 ML ENEMA RECTAL STA (22:56)
[2018-01-06] MEDS: HYDROCORTISONE SUPPOSITORY 25 MG SUPP RECTAL SCH (23:42)
[2018-01-06] MEDS: TEMAZEPAM 15 MG CAP PO SCH (23:42)
[2018-01-07] MEDS: DEXTROSE 5%-0.9% NACL 1,000 ML IV SCH ×4 (01:28→22:15)
[2018-01-07 07:17] LABS: Anisocytosis Moderate; Basophils % (A) 1 %; Eosinophils % (A) 3 %; HCT 21.9 % (39.0-53.0); HGB 7.1 gm/dL (13.0-17.5); Lymphocytes # (A) 0.6 k/uL (1.0-4.8); Lymphocytes % (A) 43 %; MCH 32.5 pg (25.0-35.0); MCHC 32.4 g/dL (31.0-37.0); MCV 100.4 fL (80.0-100.0); Macrocytosis Moderate; Mean Platelet Volume 11.2; Monocytes # (A) 0.1 k/uL (0-1.0); Monocytes % (A) 8 %; Neutrophils # (A) 0.6 k/uL (1.3-7.7); Neutrophils % (A) 42 %; Platelet Count 58 k/uL (150-450); RBC 2.19 m/uL (4.30-5.90); RDW 20.7 % (11.5-15.5)
[2018-01-07 07:22] LABS: WBC 1.4 k/uL (3.8-10.6)
[2018-01-07 07:23] LABS: ALT 178 U/L (21-72); AST 120 U/L (17-59); Albumin 2.5 g/dL (3.5-5.0); Alkaline Phosphatase 706 U/L (38-126); Anion Gap 4 mmol/L; Blood Urea Nitrogen 14 mg/dL (9-20); Calcium 7.6 mg/dL (8.4-10.2); Carbon Dioxide 24 mmol/L (22-30); Chloride 108 mmol/L (98-107); Glucose 102 mg/dL (74-99); Potassium 3.8 mmol/L (3.5-5.1); Sodium 136 mmol/L (137-145); Total Protein 4.9 g/dL (6.3-8.2)
[2018-01-07 07:31] LABS: INR 1.4 (<1.2); Prothrombin Time 12.7 sec (9.0-12.0)
[2018-01-07] MEDS: SYMBICORT 80-4.5 MCG INHALER INHALATION SCH ×2 (07:40→20:30)
[2018-01-07] MEDS: IPRATROPIUM-ALBUTEROL 3 ML NEB INHALATION SCH ×2 (07:40→20:31)
[2018-01-07 07:47] LABS: Poikilocytosis (M) Present; Polychromasia Present
[2018-01-07] MEDS: PANTOPRAZOLE 40 MG TABLET PO SCH (08:28)
[2018-01-07] MEDS: TAMSULOSIN 0.4 MG CAP.ER.24H PO SCH (08:28)
[2018-01-07] MEDS: HYDROCORTISONE SUPPOSITORY 25 MG SUPP RECTAL SCH ×2 (09:28→22:16)
[2018-01-07] MEDS ORDERED: INDOMETHACIN 50MG SUPPOSITORY RECTAL ONE (12:00)
[2018-01-07] MEDS ORDERED: LEVOFLOXACIN 500MG-D5W PMX 500 MG in DEXTROSE/WATER 1 100ML.BAG IVPB ONE (12:00)
--- NOTE | 2018-01-07 14:59 | P.PN ---
Subjective Progress Note Date: 01/07/18 This is a 77-year-old male patient of Dr. Martin Ron with past medical history significant for esophageal cancer diagnosed in June 2017 currently undergoing chemotherapy and has had radiation therapy to the bones in the upper thorax. Patient is undergone previous EGDs and esophageal dilatations 3 in the past. 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 Also history of COPD, hyperlipidemia, hypertension, osteoarthritis, benign prostatic hypertrophy, obstructive sleep apnea. Patient has been treated at the [facility] in [place] and started chemotherapy in July of this year. In October his oncologist changed his chemotherapy and he received 2 doses of this new medication which made him extremely's ill with diarrhea, nausea, weakness. He then returned to [place] 3 weeks ago and is now followed by Dr. Garcia. Dr. Garcia kept him on the second chemotherapy treatment and decrease the dose by 20%. Patient was sent by Dr. Garcia to [facility] emergency center for admission. Patient states he has occasional sharp pain in his right abdomen. He is a little bit nauseated. He does state his urine has changed to bright yellow almost brown color. He did have a bowel movement this morning but feels constipated. He denies any itchiness. Since his last chemotherapy, patient developed diarrhea that was then followed by constipation. Patient also has a PEG tube in place and tube feedings have been resumed. He eats a small amount of soft food by mouth. CAT scan of the abdomen and pelvis revealed hepatobiliary obstruction secondary to neoplasm. GI consult was added and patient was admitted to the oncology unit. Patient presented with pancytopenia with white count of 2.3, hemoglobin 8.3, platelet count 62. Creatinine 0.60. Lactic acid was 0.9. Total bilirubin 10.1, AST 192, ALT 243, alkaline phosphatase 796. Amylase and lipase were normal. Urine was dark brown with 2+ bilirubin. 01/07: Patient continues to complain of rectal pain. He did receive a suppository followed by enema without any improvement. Anusol did help. Patient is scheduled for ERCP and biliary stent today. Lips morning showed a white count 1.4, hemoglobin 7.1, platelet count 58, INR 1.4, creatinine 0.56. Liver function is slightly improved from yesterday with total bilirubin of 8, AST 120, ALT 178, alkaline phosphatase 706. Objective - Vital Signs Vital signs: Vital Signs Temp 98.3 F 01/07/18 07:26 Pulse 80 01/07/18 07:52 Resp 16 01/07/18 07:26 BP 123/73 01/07/18 07:26 Pulse Ox 98 01/07/18 07:26 Intake & Output 01/06/18 01/07/18 01/07/18 18:59 06:59 18:59 Intake Total 45 360 Balance 45 360 Weight 68.039 kg 76.657 kg Intake: Tube Feeding 45 360 Other: Voiding Method Toilet Toilet Toilet # Voids 4 - Exam Gen: This is a thin 77-year-old male. Patient is sitting up in a chair. Generalized jaundice noted. HEENT: Head is atraumatic, normocephalic. Pupils equal, round. Sclerae is icteric. NECK: Supple. No JVD. No lymphadenopathy. No thyromegaly. LUNGS: Clear to auscultation. No wheezes or rhonchi. No intercostal retractions. HEART: Regular rate and rhythm. No murmur. ABDOMEN: Soft. Bowel sounds are present. No masses. Mild right upper quadrant tenderness. Feeding tube in place. EXTREMITIES: No pedal edema. No calf tenderness. NEUROLOGICAL: Patient is awake, alert and oriented x3. Cranial nerves 2 through 12 are grossly intact. - Labs CBC & Chem 7: 01/07/18 06:51 01/07/18 06:51 Labs: Abnormal Lab Results - Last 24 Hours (Table) 01/07/18 01/07/18 01/07/18 Range/Units 06:51 06:51 06:51 WBC 1.4 L* (3.8-10.6) k/uL RBC 2.19 L (4.30-5.90) m/uL Hgb 7.1 L (13.0-17.5) gm/dL Hct 21.9 L (39.0-53.0) % MCV 100.4 H (80.0-100.0) fL RDW 20.7 H (11.5-15.5) % Plt Count 58 L (150-450) k/uL Neutrophils # 0.6 L (1.3-7.7) k/uL Lymphocytes # 0.6 L (1.0-4.8) k/uL PT 12.7 H (9.0-12.0) sec INR 1.4 H (<1.2) Sodium 136 L (137-145) mmol/L Chloride 108 H (98-107) mmol/L Creatinine 0.56 L (0.66-1.25) mg/dL Glucose 102 H (74-99) mg/dL Calcium 7.6 L (8.4-10.2) mg/dL Total Bilirubin 8.0 H (0.2-1.3) mg/dL AST 120 H (17-59) U/L ALT 178 H (21-72) U/L Alkaline Phosphatase 706 H (38-126) U/L Total Protein 4.9 L (6.3-8.2) g/dL Albumin 2.5 L (3.5-5.0) g/dL Assessment and Plan Plan: 1. Obstructive jaundice secondary to esophageal cancer and metastatic disease of the liver. GI consult is appreciated. Plan is for EGD/ERCP biliary stent tomorrow. 2. Esophageal cancer with metastatic disease to the liver and bone status post radiation therapy and chemotherapy. Oncology consult. 3. Pancytopenia secondary to chemotherapy. 4. Severe protein calorie malnutrition with albumin 2.8. Patient is continued on tube feedings. 5. COPD stable without exacerbation. Continue DuoNeb treatments twice daily and Symbicort twice daily.. 6. Benign prostatic hypertrophy. Continue Flomax 0.4 mg daily. 7. History of hypertension but taken off medications secondary to weight loss. Monitor blood pressure. 8. Chronic pain syndrome. Patient will be continued on OxyContin 10 mg ER at bedtime as needed, MS Contin 30 mg every 12 hours as needed and IV MS as needed for breakthrough pain.. 9. DVT prophylaxis. No heparin due to thrombocytopenia. 10. Gastroesophageal reflux disease and GI prophylaxis. Protonix. Discharge plan: Return home Impression and plan of care have been directed as dictated by the signing physician. Nikole Cisneros nurse practitioner acting as scribe for signing physician.
--- NOTE | 2018-01-07 15:17 | P.PN ---
Subjective Progress Note Date: 01/07/18 Principal diagnosis: Metastatic Esophageal carcinoma - Hepatobiliary obstruction Still with pain in rectum. INR increasing and WBC decreasing. Despite Neulasta after chemotherapy. Objective - Vital Signs Vital signs: Vital Signs Temp 98.3 F 01/07/18 07:26 Pulse 80 01/07/18 07:52 Resp 16 01/07/18 07:26 BP 123/73 01/07/18 07:26 Pulse Ox 98 01/07/18 07:26 Intake & Output 01/06/18 01/07/18 01/07/18 18:59 06:59 18:59 Intake Total 45 360 Balance 45 360 Weight 68.039 kg 76.657 kg Intake: Tube Feeding 45 360 Other: Voiding Method Toilet Toilet Toilet # Voids 4 - Constitutional General appearance: Present: cooperative, no acute distress - EENT Eyes: Present: EOMI, dentition normal, scleral icterus ENT: Present: hard of hearing, NA/AT, normal oropharynx - Neck Details: supple, Head NCNT Neck: Present: normal ROM - Respiratory Respiratory: bilateral: CTA - Cardiovascular Rhythm: regular Heart sounds: normal: S1, S2 - Gastrointestinal General gastrointestinal: Present: distended, hepatomegaly, normal bowel sounds , soft - Integumentary Integumentary: Present: jaundiced - Neurologic Neurologic Comment(s): no focal defects Neurologic: Present: CNII-XII intact - Musculoskeletal Musculoskeletal: Present: generalized weakness, strength equal bilaterally - Psychiatric Psychiatric: Present: A&O x's 3, appropriate affect, intact judgment & insight - Labs CBC & Chem 7: 01/07/18 06:51 01/07/18 06:51 Labs: Abnormal Lab Results - Last 24 Hours (Table) 01/07/18 01/07/18 01/07/18 Range/Units 06:51 06:51 06:51 WBC 1.4 L* (3.8-10.6) k/uL RBC 2.19 L (4.30-5.90) m/uL Hgb 7.1 L (13.0-17.5) gm/dL Hct 21.9 L (39.0-53.0) % MCV 100.4 H (80.0-100.0) fL RDW 20.7 H (11.5-15.5) % Plt Count 58 L (150-450) k/uL Neutrophils # 0.6 L (1.3-7.7) k/uL Lymphocytes # 0.6 L (1.0-4.8) k/uL PT 12.7 H (9.0-12.0) sec INR 1.4 H (<1.2) Sodium 136 L (137-145) mmol/L Chloride 108 H (98-107) mmol/L Creatinine 0.56 L (0.66-1.25) mg/dL Glucose 102 H (74-99) mg/dL Calcium 7.6 L (8.4-10.2) mg/dL Total Bilirubin 8.0 H (0.2-1.3) mg/dL AST 120 H (17-59) U/L ALT 178 H (21-72) U/L Alkaline Phosphatase 706 H (38-126) U/L Total Protein 4.9 L (6.3-8.2) g/dL Albumin 2.5 L (3.5-5.0) g/dL Assessment and Plan (1) Obstructive jaundice Narrative/Plan: - GI following for Hepatobiliary obstruction secondary to probable progressive metastatic esophageal carcinoma - Plan is for EGD/ERCP biliary stent tomorrow. May need platlet transfusion prior, will check CBC, CMP, Coags in am. - Total Bili 10.1 on 01/05/18, down to 8 on 01/07/18 - Although mildly increasing INR 1.4 - If Stent planned for 01/08/18 may benefit from FFP or Vitamin K, would recheck INR and CBC in am prior procedure Current Visit: Yes Status: Acute Code(s): K83.8 - OTHER SPECIFIED DISEASES OF BILIARY TRACT SNOMED Code(s): 72964228 (2) Metastasis from esophageal cancer Narrative/Plan: 1. Status POst Cycle 3 of FOLFIRI at [facility], with monthly Xgeva and neulasta 12/28/17 Current Visit: Yes Status: Acute Code(s): C79.9 - SECONDARY MALIGNANT NEOPLASM OF UNSPECIFIED SITE; C15.9 - MALIGNANT NEOPLASM OF ESOPHAGUS, UNSPECIFIED SNOMED Code(s): 261541890 (3) Pancytopenia due to antineoplastic chemotherapy Narrative/Plan: 1. Status Post Cheotherapy on 12/28/17 and Neulasta on 12/30/17. 2. No need for [place] stimulating factor secondary to neulasta given, if counts continue to decrease after 10 days post neulasta then it would be resonable to initiate a short acting CSF - Zarxio 3. Monitor CBC daily and transfuse hemoglobin less than 7 or platelet count less than 50 WBC is decreased to 1.4, will need to monitor closely s/s infection Current Visit: Yes Status: Acute Code(s): D61.810 - ANTINEOPLASTIC CHEMOTHERAPY INDUCED PANCYTOPENIA; T45.1X5A - ADVERSE EFFECT OF ANTINEOPLASTIC AND IMMUNOSUP DRUGS, INIT SNOMED Code(s): 875844843838878 (4) Gastrostomy present Current Visit: Yes Status: Acute Code(s): Z93.1 - GASTROSTOMY STATUS SNOMED Code(s): 229646934 (5) Jaundice Current Visit: Yes Status: Acute Code(s): R17 - UNSPECIFIED JAUNDICE SNOMED Code(s): 76734040 (6) Liver mass Current Visit: Yes Status: Acute Code(s): R16.0 - HEPATOMEGALY, NOT ELSEWHERE CLASSIFIED SNOMED Code(s): 165179738
[2018-01-07] MEDS ORDERED: PROPOFOL 10 MG/ML 20 ML VIAL IV ONE (16:06)
[2018-01-07] MEDS ORDERED: MIDAZOLAM 2 MG/2 ML VIAL ONE (16:06)
[2018-01-07] MEDS ORDERED: IV FLUID CONTINUATION 1,000 ML IV ONE (16:08)
--- NOTE | 2018-01-07 16:41 | P.PCN ---
Date of Procedure: 01/07/18 Procedure(s) Performed: Procedure: Esophagoscopy. Preoperative diagnosis: Obstructive jaundice. Postoperative diagnosis: 1. Distal esophageal stenosis precluded passing of the pediatric upper endoscope and consequently would not allow passing the yet larger videocolonoscope. 2. ERCP was not attempted. Preparation and sedation: Was provided by anesthesia. Brief clinical history: The patient is a 77-year-old male who was diagnosed June 2017 in [place] with with metastatic esophageal cancer, S/P EGD/ colonoscopy with feeding gastrostomy tube placement. Patient received chemotherapy and radiation therapy for a total of 10 treatments and apparently did not work. His last upper endoscopy was around 6 weeks ago and he has indicated that the tumor has regressed. Admitted with mild abdominal pain and new onset jaundice [address] abdomen and pelvis reported mild to moderate dilatation of intrahepatic biliary tree both right and left hepatic lobes with obstruction secondary to neoplasm. No abnormalities seen in the spleen or pancreas. Admission white count 2.3. Hemoglobin 8.3. Platelet 62,000. INR 1.2. Total bilirubin 10.1. AST 192. ALT 243. AP 796. Lipase 223. The details are summarized in the history and physical and dictated consultation and progress notes. This evaluation is to assess for possible ERCP and stent placements. Procedure: With the patient in the prone position and after informed consent and adequate sedation, I passed the [employer] pediatrics video upper endoscope through the cricopharyngeus down the esophagus. The distal esophagus showed stenosis that precluded passing the pediatric endoscope. There was no active inflammation or masses or bleeding. Consequently, I suspected that the duodenoscope which is a larger diameter endoscope would not pass and I did not attempt an ERCP today. The patient tolerated the procedure well and did not have any meats complications. Plan: I summarize the findings to the patient. Consideration can be made for a percutaneous approach to place biliary stents by the interventional radiologist if the patient agrees. I will discuss with you and follow with you with interest.
[2018-01-07] MEDS: TEMAZEPAM 15 MG CAP PO SCH (22:15)
[2018-01-08] MEDS: IPRATROPIUM-ALBUTEROL 3 ML NEB INHALATION SCH (08:17)
[2018-01-08] MEDS: SYMBICORT 80-4.5 MCG INHALER INHALATION SCH ×2 (08:17→08:20)
[2018-01-08] MEDS: PANTOPRAZOLE 40 MG TABLET PO SCH (08:56)
[2018-01-08] MEDS: HYDROCORTISONE SUPPOSITORY 25 MG SUPP RECTAL SCH (08:56)
[2018-01-08] MEDS: TAMSULOSIN 0.4 MG CAP.ER.24H PO SCH (08:56)
[2018-01-08 12:58] VITALS: BMI 26.1
[2018-01-08 13:34] LABS: INR 1.2 (<1.2); Prothrombin Time 11.4 sec (9.0-12.0)
[2018-01-08 13:45] LABS: ALT 169 U/L (21-72); AST 108 U/L (17-59); Albumin 2.7 g/dL (3.5-5.0); Alkaline Phosphatase 798 U/L (38-126); Anion Gap 8 mmol/L; Blood Urea Nitrogen 11 mg/dL (9-20); Carbon Dioxide 23 mmol/L (22-30); Chloride 107 mmol/L (98-107); Glucose 131 mg/dL (74-99); Potassium 3.7 mmol/L (3.5-5.1); Sodium 138 mmol/L (137-145); Total Bilirubin 6.4 mg/dL (0.2-1.3); Total Protein 5.3 g/dL (6.3-8.2)
[2018-01-08 13:46] LABS: Anisocytosis Moderate; Basophils % (A) 1 %; Eosinophils % (A) 2 %; HCT 23.9 % (39.0-53.0); HGB 7.8 gm/dL (13.0-17.5); Hypochromasia Slight; Lymphocytes # (A) 0.6 k/uL (1.0-4.8); Lymphocytes % (A) 23 %; MCH 33.3 pg (25.0-35.0); MCHC 32.7 g/dL (31.0-37.0); MCV 101.8 fL (80.0-100.0); Macrocytosis Marked; Mean Platelet Volume 8.3; Monocytes # (A) 0.1 k/uL (0-1.0); Monocytes % (A) 4 %; Neutrophils # (A) 1.7 k/uL (1.3-7.7); Neutrophils % (A) 69 %; RBC 2.34 m/uL (4.30-5.90); RDW 21.9 % (11.5-15.5); WBC 2.4 k/uL (3.8-10.6)
[2018-01-08 13:52] LABS: Platelet Count 87 k/uL (150-450)
[2018-01-08 14:56] VITALS: BP 125/68; PULSE 77; RESP 18; TEMP 98.1
--- NOTE | 2018-01-08 15:27 | P.DS ---
Providers Date of admission: 01/05/18 19:54 Expected date of discharge: 01/08/18 Attending physician: Steffen Recinos MD Consults: 01/05/18 19:54 Consult Physician Stat Consulting Provider: Ben Garcia Consult Reason/Comments: Esophageal cancer with hepatic metastasis Do you want consulting provider notified?: Yes 01/06/18 08:26 Consult Physician Routine Consulting Provider: Pat Rangel Consult Reason/Comments: hepatobiliary tumor Do you want consulting provider notified?: Yes Primary care physician: Martin Ron [facility] Course: This is a 77-year-old male patient of Dr. Martin Ron with past medical history significant for esophageal cancer diagnosed in June 2017 currently undergoing chemotherapy and has had radiation therapy to the bones in the upper thorax. Patient is undergone previous EGDs and esophageal dilatations 3 in the past. 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 Also history of COPD, hyperlipidemia, hypertension, osteoarthritis, benign prostatic hypertrophy, obstructive sleep apnea. Patient has been treated at the [facility] in [place] and started chemotherapy in July of this year. In October his oncologist changed his chemotherapy and he received 2 doses of this new medication which made him extremely's ill with diarrhea, nausea, weakness. He then returned to [place] 3 weeks ago and is now followed by Dr. Garcia. Dr. Garcia kept him on the second chemotherapy treatment and decrease the dose by 20%. Patient was sent by Dr. Garcia to [facility] emergency center for admission. Patient states he has occasional sharp pain in his right abdomen. He is a little bit nauseated. He does state his urine has changed to bright yellow almost brown color. He did have a bowel movement this morning but feels constipated. He denies any itchiness. Since his last chemotherapy, patient developed diarrhea that was then followed by constipation. Patient also has a PEG tube in place and tube feedings have been resumed. He eats a small amount of soft food by mouth. CAT scan of the abdomen and pelvis revealed hepatobiliary obstruction secondary to neoplasm. GI consult was added and patient was admitted to the oncology unit. Patient presented with pancytopenia with white count of 2.3, hemoglobin 8.3, platelet count 62. Creatinine 0.60. Lactic acid was 0.9. Total bilirubin 10.1, AST 192, ALT 243, alkaline phosphatase 796. Amylase and lipase were normal. Urine was dark brown with 2+ bilirubin. 01/07: Patient continues to complain of rectal pain. He did receive a suppository followed by enema without any improvement. Anusol did help. Patient is scheduled for ERCP and biliary stent today. Lips morning showed a white count 1.4, hemoglobin 7.1, platelet count 58, INR 1.4, creatinine 0.56. Liver function is slightly improved from yesterday with total bilirubin of 8, AST 120, ALT 178, alkaline phosphatase 706. 01/08: ERCP was attempted yesterday by Dr. Rayo but he could not advance the scope past the distal esophagus. Recommendations were to transfer to tertiary care for a percutaneous procedure. Shai Garcias has accepted the patient and patient has agreed to be transferred. Patient will be transported once all arrangements are completed. Discharge diagnoses: 1. Obstructive jaundice secondary to esophageal cancer and metastatic disease of the liver. 2. Esophageal cancer with metastatic disease to the liver and bone status post radiation therapy and chemotherapy. 3. Pancytopenia secondary to chemotherapy. 4. Severe protein calorie malnutrition with albumin 2.8. 5. COPD stable without exacerbation. 6. Benign prostatic hypertrophy. 7. History of hypertension 8. Chronic pain syndrome. Discharge plan: Return home Impression and plan of care have been directed as dictated by the signing physician. Nikole Cisneros nurse practitioner acting as scribe for signing physician. Patient Condition at Discharge: Good Plan - Discharge Summary Discharge Rx Participant: No New Discharge Prescriptions: No Action Temazepam [Restoril] 15 mg PO HS Tamsulosin [Flomax] 0.4 mg PO HS Prochlorperazine [Compazine] 10 mg PO QID PRN PRN Reason: Nausea Morphine Sulfate ER [Ms Contin] 30 mg PO Q12HR PRN PRN Reason: Pain Tiotropium [place] [Spiriva Respimat] 1 puff INHALATION RT-DAILY Fluticasone/Salmeterol [Advair 250-50 Diskus] 1 puff INHALATION RT-BID Albuterol Sulfate [Proair Hfa] 1 puff INHALATION RT-DAILY Esomeprazole Magnesium [NexIUM] 40 mg PO DAILY Ipratropium-Albuterol Nebulize [Duoneb 0.5 mg-3 mg/3 ml Soln] 3 ml INHALATION RT-BID Lidocaine-Prilocaine Cream [Emla Cream 2.5%/2.5%] 1 applic TOPICAL DAILY PRN PRN Reason: Pain oxyCODONE ER [OxyCONTIN] 10 mg PO HS PRN PRN Reason: Pain Discharge Medication List Albuterol Sulfate [Proair Hfa] 1 puff INHALATION RT-DAILY 12/28/17 [History] Fluticasone/Salmeterol [Advair 250-50 Diskus] 1 puff INHALATION RT-BID 12/28/17 [History] Morphine Sulfate ER [Ms Contin] 30 mg PO Q12HR PRN 12/28/17 [History] Prochlorperazine [Compazine] 10 mg PO QID PRN 12/28/17 [History] Tamsulosin [Flomax] 0.4 mg PO HS 12/28/17 [History] Temazepam [Restoril] 15 mg PO HS 12/28/17 [History] Tiotropium [place] [Spiriva Respimat] 1 puff INHALATION RT-DAILY 12/28/17 [ History] Esomeprazole Magnesium [NexIUM] 40 mg PO DAILY 01/05/18 [History] Ipratropium-Albuterol Nebulize [Duoneb 0.5 mg-3 mg/3 ml Soln] 3 ml INHALATION RT -BID 01/05/18 [History] Lidocaine-Prilocaine Cream [Emla Cream 2.5%/2.5%] 1 applic TOPICAL DAILY PRN 12/16 [History] oxyCODONE ER [OxyCONTIN] 10 mg PO HS PRN 01/05/18 [History] Follow up Appointment(s)/Referral(s): Martin Ron MD [Primary Care Provider] - 1-2 days
[2018-01-08] MEDS: DEXTROSE 5%-0.9% NACL 1,000 ML IV SCH (15:43)
--- NOTE | 2018-01-08 20:00 | P.PN ---
Subjective Progress Note Date: 01/08/18 Principal diagnosis: Metastatic Esophageal carcinoma - Hepatobiliary obstruction Still with pain in rectum. INR increasing and WBC decreasing. Despite Neulasta after chemotherapy. He may receive Neupogen after 10days of receiving neulasta if additional support needed. He expresses frustration this am as they were unable to place biliary drains, he is currently awaiting [facility] transfer Objective - Vital Signs Vital signs: Vital Signs Temp 98.1 F 01/08/18 14:34 Pulse 77 01/08/18 14:34 Resp 18 01/08/18 14:34 BP 125/68 01/08/18 14:34 Pulse Ox 98 01/08/18 14:34 Intake & Output 01/08/18 01/08/18 01/09/18 06:59 18:59 06:59 Intake Total 830 640 Balance 830 640 Weight 78.018 kg 78.018 kg Intake: Intake, IV Titration 600 Amount Dextrose 5%-0.9% NaCl 1, 600 000 ml @ 75 mls/hr IV . [id number] [facility] Rx#:[id number] Tube Feeding 230 640 Other: Voiding Method Toilet Toilet Bedside Commode Bedside Commode # Voids 2 - Constitutional General appearance: Present: cooperative, no acute distress - EENT Eyes: Present: EOMI, poor dentition, normal appearance ENT: Present: NA/AT, normal oropharynx - Neck Details: Supple, trachea midline Neck: Present: normal ROM - Respiratory Respiratory: bilateral: CTA (no increased effort) - Cardiovascular Rhythm: regular Heart sounds: normal: S1, S2 - Gastrointestinal General gastrointestinal: Present: distended, hepatomegaly, soft - Integumentary Integumentary: Present: jaundiced - Neurologic Neurologic Comment(s): No focal defects Neurologic: Present: CNII-XII intact - Musculoskeletal Musculoskeletal: Present: gait normal, generalized weakness, strength equal bilaterally - Psychiatric Psychiatric: Present: A&O x's 3, appropriate affect, intact judgment & insight - Labs CBC & Chem 7: 01/08/18 12:57 01/08/18 12:57 Labs: Abnormal Lab Results - Last 24 Hours (Table) 01/08/18 01/08/18 01/08/18 Range/Units 12:57 12:57 12:57 WBC 2.4 L (3.8-10.6) k/uL RBC 2.34 L (4.30-5.90) m/uL Hgb 7.8 L (13.0-17.5) gm/dL Hct 23.9 L (39.0-53.0) % MCV 101.8 H (80.0-100.0) fL RDW 21.9 H (11.5-15.5) % Plt Count 87 L (150-450) k/uL Lymphocytes # 0.6 L (1.0-4.8) k/uL INR 1.2 H (<1.2) Creatinine 0.50 L (0.66-1.25) mg/dL Glucose 131 H (74-99) mg/dL Calcium 8.0 L (8.4-10.2) mg/dL Total Bilirubin 6.4 H (0.2-1.3) mg/dL AST 108 H (17-59) U/L ALT 169 H (21-72) U/L Alkaline Phosphatase 798 H (38-126) U/L Total Protein 5.3 L (6.3-8.2) g/dL Albumin 2.7 L (3.5-5.0) g/dL Assessment and Plan (1) Obstructive jaundice Narrative/Plan: - GI following for Hepatobiliary obstruction secondary to probable progressive metastatic esophageal carcinoma - Plan is for EGD/ERCP biliary stent tomorrow. May need platlet transfusion prior, will check CBC, CMP, Coags in am. - Total Bili 10.1 on 01/05/18, down to 8 on 01/07/18 - Although mildly increasing INR 1.4 - Unable to place stent, awaiting transfer to [facility] for further assistance in stent placement and manipulation with Esophagus (per family) Status: Acute Code(s): K83.8 - OTHER SPECIFIED DISEASES OF BILIARY TRACT SNOMED Code(s): 17908634 (2) Metastasis from esophageal cancer Narrative/Plan: 1. Status POst Cycle 3 of FOLFIRI at [facility], with monthly Xgeva and neulasta 12/28/17 Status: Acute Code(s): C79.9 - SECONDARY MALIGNANT NEOPLASM OF UNSPECIFIED SITE; C15.9 - MALIGNANT NEOPLASM OF ESOPHAGUS, UNSPECIFIED SNOMED Code(s): 907033214 (3) Pancytopenia due to antineoplastic chemotherapy Narrative/Plan: 1. Status Post Cheotherapy on 12/28/17 and Neulasta on 12/30/17. 2. No need for [place] stimulating factor secondary to neulasta given, if counts continue to decrease after 10 days post neulasta then it would be resonable to initiate a short acting CSF - Zarxio 3. Monitor CBC daily and transfuse hemoglobin less than 7 or platelet count less than 50 WBC improved today 1.7, will need to monitor closely s/s infection Status: Acute Code(s): D61.810 - ANTINEOPLASTIC CHEMOTHERAPY INDUCED PANCYTOPENIA; T45.1X5A - ADVERSE EFFECT OF ANTINEOPLASTIC AND IMMUNOSUP DRUGS, INIT SNOMED Code(s): 222566530927945 (4) Gastrostomy present Status: Acute Code(s): Z93.1 - GASTROSTOMY STATUS SNOMED Code(s): 116698156 (5) Jaundice Status: Acute Code(s): R17 - UNSPECIFIED JAUNDICE SNOMED Code(s): 74261212 (6) Liver mass Status: Acute Code(s): R16.0 - HEPATOMEGALY, NOT ELSEWHERE CLASSIFIED SNOMED Code(s): 083226639
== END 2018-01-08 17:25 | disposition short-term general hospital (02) | DRG 444 ==
LOC: EC 15:57 → 5ONC 19:54
PROVIDERS: ADMIT Internal Medicine; ATTEND Internal Medicine
PROC: 0DJ08ZZ Inspection of Upper Intestinal Tract, Via Natural or Artificial Opening Endoscopic (ICD-10-PCS; principal; 2018-01-07 15:05)
DX: K83.1 Obstruction of bile duct (principal); D61.810 Antineoplastic chemotherapy induced pancytopenia; E43 Unspecified severe protein-calorie malnutrition; C15.9 Malignant neoplasm of esophagus, unspecified; C78.7 Secondary malignant neoplasm of liver and intrahepatic bile duct; C79.51 Secondary malignant neoplasm of bone; E78.5 Hyperlipidemia, unspecified; G47.33 Obstructive sleep apnea (adult) (pediatric); G89.4 Chronic pain syndrome; I10 Essential (primary) hypertension; J44.9 Chronic obstructive pulmonary disease, unspecified; K22.2 Esophageal obstruction; K57.90 Diverticulosis of intestine, part unspecified, without perforation or abscess without bleeding; Z86.010 Personal history of colon polyps; K59.00 Constipation, unspecified; K64.8 Other hemorrhoids; N40.0 Benign prostatic hyperplasia without lower urinary tract symptoms; T45.1X5A Adverse effect of antineoplastic and immunosuppressive drugs, initial encounter; Z77.090 Contact with and (suspected) exposure to asbestos; Z82.49 Family history of ischemic heart disease and other diseases of the circulatory system; Z82.0 Family history of epilepsy and other diseases of the nervous system; Z87.891 Personal history of nicotine dependence; Z92.3 Personal history of irradiation; Z93.1 Gastrostomy status; Z98.41 Cataract extraction status, right eye; Z96.1 Presence of intraocular lens; H26.9 Unspecified cataract; Z87.01 Personal history of pneumonia (recurrent); M19.90 Unspecified osteoarthritis, unspecified site; Z79.899 Other long term (current) drug therapy
CPT/HCPCS: 36415; 43200; 74177; 80053; 81003; 82150; 83605; 83690; 84484; 85025; 85610; 86850; 86900; 86901; 94640; 99284

== ENCOUNTER 2018-01-30 12:51 | Emergency (ER) | payer MEDICARE ==
[2018-01-30 13:20] VITALS: TEMP 98
[2018-01-30 14:13] LABS: Anisocytosis Moderate; Basophils % (A) 0 %; Eosinophils # (A) 0.1 k/uL (0-0.7); Eosinophils % (A) 1 %; HCT 29.9 % (39.0-53.0); Hypochromasia Slight; Lymphocytes % (A) 11 %; MCH 34.3 pg (25.0-35.0); MCHC 31.6 g/dL (31.0-37.0); Macrocytosis Marked; Mean Platelet Volume 7.4; Monocytes # (A) 0.9 k/uL (0-1.0); Monocytes % (A) 9 %; Neutrophils # (A) 7.2 k/uL (1.3-7.7); Neutrophils % (A) 78 %; RBC 2.75 m/uL (4.30-5.90); WBC 9.3 k/uL (3.8-10.6)
[2018-01-30 14:14] LABS: HGB 9.4 gm/dL (13.0-17.5); MCV 108.7 fL (80.0-100.0); Platelet Count 208 k/uL (150-450)
[2018-01-30 14:17] LABS: ALT 68 U/L (21-72); AST 51 U/L (17-59); Albumin 2.4 g/dL (3.5-5.0); Alkaline Phosphatase 583 U/L (38-126); Amylase 45 U/L (30-110); Anion Gap 6 mmol/L; Blood Urea Nitrogen 17 mg/dL (9-20); Calcium 7.1 mg/dL (8.4-10.2); Carbon Dioxide 27 mmol/L (22-30); Chloride 98 mmol/L (98-107); Glucose 106 mg/dL (74-99); Lipase 364 U/L (23-300); Potassium 4.8 mmol/L (3.5-5.1); Sodium 131 mmol/L (137-145); Total Bilirubin 2.7 mg/dL (0.2-1.3); Total Protein 5.1 g/dL (6.3-8.2)
[2018-01-30 14:47] LABS: Polychromasia Present
--- NOTE | 2018-01-30 14:56 | ED ---
General Adult HPI - General Chief complaint: Recheck/Abnormal Lab/Rx Stated complaint: PEG tube problem Time Seen by Provider: 01/30/18 13:22 Source: patient, family, RN notes reviewed, old records reviewed Mode of arrival: wheelchair Limitations: no limitations - History of Present Illness Initial comments: 77-year-old male with history of metastatic esophageal cancer presents for evaluation of drainage from PEG tube site. Patient has had PEG tube for the past approximate 6 months. Over the past 2-3 weeks he was seen at [facility] where according to his daughter he had multiple drains placed in the right upper quadrant. She believes these are clearly drains. These a been draining yellow-green fluid, no change since discharge. Over the past 48 hours patient has had copious amount of purulent dark drainage from around his PEG tube. He is also had some, what appears to be to proceed draining as well. Patient is on continuous feed at 50 mL an hour. No reported fever or chills. Patient does not eat orally. He has had bowel movements. His daughter also reports that he's had increased abdominal distention. Patient is currently not on chemotherapy. - Related Data Home Medications Medication Instructions Recorded Confirmed Albuterol Sulfate [Proair Hfa] 1 puff INHALATION RT-DAILY 12/28/17 01/06/18 Fluticasone/Salmeterol [Advair 1 puff INHALATION RT-BID 12/28/17 01/06/18 250-50 Diskus] Morphine Sulfate ER [Ms Contin] 30 mg PO Q12HR PRN 12/28/17 01/06/18 Prochlorperazine [Compazine] 10 mg PO QID PRN 12/28/17 01/06/18 Tamsulosin [Flomax] 0.4 mg PO HS 12/28/17 01/06/18 Temazepam [Restoril] 15 mg PO HS 12/28/17 01/06/18 Tiotropium [place] [Spiriva 1 puff INHALATION RT-DAILY 12/28/17 01/06/18 Respimat] Esomeprazole Magnesium [NexIUM] 40 mg PO DAILY 01/05/18 01/06/18 Ipratropium-Albuterol Nebulize 3 ml INHALATION RT-BID 01/05/18 01/06/18 [Duoneb 0.5 mg-3 mg/3 ml Soln] Lidocaine-Prilocaine Cream [Emla 1 applic TOPICAL DAILY PRN 01/05/18 01/06/18 Cream 2.5%/2.5%] oxyCODONE ER [OxyCONTIN] 10 mg PO HS PRN 01/05/18 01/06/18 Allergies Allergy/AdvReac Type Severity Reaction Status Date / Time No Known Allergies Allergy Verified 01/30/18 13:20 Review of Systems ROS Statement: Those systems with pertinent positive or pertinent negative responses have been documented in the HPI. ROS Other: All systems not noted in ROS Statement are negative. Past Medical History Past Medical History: Cancer, COPD, Hyperlipidemia, Hypertension, Osteoarthritis (OA), Pneumonia, Prostate Disorder, Sleep Apnea/CPAP/BIPAP Additional Past Medical History / Comment(s): HOME OXYGEN PRN.lt eye cataract that needs to have sx had rt cataract done already, pt stated he has esophageal cancer with mets to bone and liver and recieved first chemo tx 1 week ago. History of Any Multi-Drug Resistant Organisms: None Reported Past Surgical History: Hernia Repair, Orthopedic Surgery Additional Past Surgical History / Comment(s): VASECTOMY.rt knee arthroscopy, rt eye cataract. egd/dilations/bx, peg tube Past Anesthesia/Blood Transfusion Reactions: No Reported Reaction Past Psychological History: Anxiety, Depression Smoking Status: Former smoker Past Alcohol Use History: None Reported Past Drug Use History: None Reported - Past Family History Mother Family Medical History: Coronary Artery Disease (CAD), Dementia Additional Family Medical History / Comment(s): "heart disease" Father Additional Family Medical History / Comment(s): "heart disease" General Exam Limitations: no limitations General appearance: alert, in no apparent distress Head exam: Present: atraumatic, normocephalic Eye exam: Present: normal appearance, PERRL ENT exam: Present: normal exam Neck exam: Present: normal inspection. Absent: tenderness, meningismus Respiratory exam: Present: normal lung sounds bilaterally. Absent: respiratory distress, wheezes Cardiovascular Exam: Present: regular rate, bradycardia GI/Abdominal exam: Present: soft, distended, tenderness (Mild tenderness epigastrium and periumbilical.), other (Small amount of erythema at the PEG tube insertion site as well as right upper quadrant drain site.). Absent: guarding, rebound Extremities exam: Present: normal inspection, normal capillary refill Neurological exam: Present: alert Psychiatric exam: Present: normal affect, normal mood Skin exam: Present: warm, dry, intact. Absent: cyanosis, diaphoretic Course Vital Signs 01/30/18 01/30/18 13:18 13:58 Temperature 98 F Pulse Rate 100 93 Respiratory 15 16 Rate Blood Pressure 100/70 116/71 O2 Sat by Pulse 95 95 Oximetry Medical Decision Making - Medical Decision Making 77-year-old male presenting with drainage around his PEG tube site. Patient's family does have a video of this, this appears to be primarily partially digested tube feed. No vomiting although patient has history of esophageal mass and obstruction. Patient was recently at [facility] with biliary drain placement. These have been draining normally according to patient's family. Laboratory studies obtained, hemoglobin is 9.4 which is improved from previous in this institution. Bilirubin is down trending at 2.7. CT the abdomen is obtained, shows worsening liver mass at 9.5 cm from 7.8 cm. There is abdominal ascites. And there is significant amount of gastric contents with a collapsed duodenum suggestive of gastric outlet obstruction. Given the patient's recent surgical history at [facility] he is transferred for further evaluation treatment. PEG tube was placed on suction. Patient will need evaluation of gastric outlet obstruction as well as possible J-tube placement. Diagnosis: Gastric outlet obstruction, Liver mass, ascites, metastatic esophageal cancer. Case discussed with Dr. Velazquez at [facility] will accept transfer. - Lab Data Result diagrams: 01/30/18 13:50 01/30/18 13:50 Lab Results 01/30/18 01/30/18 01/30/18 Range/Units 13:50 13:50 13:50 WBC 9.3 (3.8-10.6) k/uL RBC 2.75 L (4.30-5.90) m/uL Hgb 9.4 L D (13.0-17.5) gm/dL Hct 29.9 L (39.0-53.0) % MCV 108.7 H D (80.0-100.0) fL MCH 34.3 (25.0-35.0) pg MCHC 31.6 (31.0-37.0) g/dL RDW 20.0 H (11.5-15.5) % Plt Count 208 D (150-450) k/uL Neutrophils % 78 % Lymphocytes % 11 % Monocytes % 9 % Eosinophils % 1 % Basophils % 0 % Neutrophils # 7.2 (1.3-7.7) k/uL Lymphocytes # 1.0 (1.0-4.8) k/uL Monocytes # 0.9 (0-1.0) k/uL Eosinophils # 0.1 (0-0.7) k/uL Basophils # 0.0 (0-0.2) k/uL Manual Slide Review Performed Polychromasia Present Hypochromasia Slight Anisocytosis Moderate Macrocytosis Marked Sodium 131 L (137-145) mmol/L Potassium 4.8 (3.5-5.1) mmol/L Chloride 98 (98-107) mmol/L Carbon Dioxide 27 (22-30) mmol/L Anion Gap 6 mmol/L BUN 17 (9-20) mg/dL Creatinine 0.50 L (0.66-1.25) mg/dL Est GFR (CKD-EPI)AfAm >90 (>60 ml/min/1.73 sqM) Est GFR (CKD-EPI)NonAf >90 (>60 ml/min/1.73 sqM) Glucose 106 H (74-99) mg/dL Plasma Lactic Acid Julian 1.6 (0.7-2.0) mmol/L Calcium 7.1 L (8.4-10.2) mg/dL Total Bilirubin 2.7 H (0.2-1.3) mg/dL AST 51 (17-59) U/L ALT 68 (21-72) U/L Alkaline Phosphatase 583 H (38-126) U/L Total Protein 5.1 L (6.3-8.2) g/dL Albumin 2.4 L (3.5-5.0) g/dL Amylase 45 (30-110) U/L Lipase 364 H (23-300) U/L Disposition Clinical Impression: Gastric outlet obstruction, Liver mass, Metastasis from esophageal cancer, Pancytopenia Disposition: OTHER INSTITUTION NOT DEFINED Condition: Stable Is patient prescribed a controlled substance at d/c from ED?: No Referrals: Martin Ron MD [Primary Care Provider] - 1-2 days Time of Disposition: 15:54 - Out of Hospital Transfer - Req. Specs Out of Hospital Transfer - Requested Specifics: Other Emergency Center ( Transfer to [facility], [facility])
--- NOTE | 2018-01-30 15:29 | CT ---
EXAMINATION TYPE: CT abdomen pelvis w con DATE OF EXAM: 01/30/2018 COMPARISON: 01/05/2018 HISTORY: 77-year-old male with abdominal pain and peg tube issues. TECHNIQUE: Contiguous axial scanning of the abdomen and pelvis following administration of 100 ml Iso jus 300 IV contrast. Delayed images through the kidneys and coronal/sagittal reconstructions perform ed. CT DLP: 1174 mGycm Automated exposure control for dose reduction was used. FINDINGS: Heart normal size without pericardial effusion. Strandy atelectasis or scarring in the lower lungs wi th emphysematous change. There is a trace left effusion. Heterogeneously enhancing mass segment 5 right liver lobe measures approximately 9.5 cm versus 7.8 cm , previously. There are new heterogeneous hypodense areas within the liver Shepherd the anterior left liver lobe isabel uring 3.7 cm not clearly seen previously and in segment 2 left liver lobe measuring 3.9 cm versus 3.1 cm, previously. Also, within the posterior inferior right liver lobe measuring 3.2 cm versus 2.4 cm, previously. There is some capsular retraction noted here. Additional smaller lesions are present at the dome, for example on axial image 11. A right lateral approach internal/external biliary drain is present looped in the second/third portio n of the duodenum. A second catheter is also present with tip extending to the kemar hepatis. Portal venous system appears patent. No biliary ductal dilatation. Gallbladder and pancreas appear within normal limits. Splenomegaly at 15.0 cm. Small bilateral adrenal nodules measuring 1.4 cm on the right and 1.1 cm on the left possibly increas ed on the right from recent prior. There is a peg tube redemonstrated. Prominent retained fluid within the stomach despite the duodenum being collapsed. There is moderate abdominopelvic ascites. No dilated small bowel, free fluid, or free air. No mesenteric or retroperitoneal lymphadenopathy dary ntified. Dictated infrarenal abdominal aorta at 2.7 cm. Moderate stool in the cecum. The ascending colon is mildly dilated at 6.3 cm wide. Remainder of the c olon is collapsed. Proximal sigmoid diverticulosis. Marked enlargement of the median lobe of the prostate gland impressing into the posterior bladder bas e. Prostate gland measures 5.5 cm wide 6.1 cm craniocaudal. Circumferential bladder wall thickening n oted probably related to chronic bladder wall hypertrophy. Patulous inguinal canals. No pelvic lympha denopathy identified Bones: Degenerative changes mid to lower lumbar spine. No osseous destructive process. IMPRESSION: 1. NEW MODERATE ABDOMINOPELVIC ASCITES. Correlate for liver failure or other possible causes. 2. Right external/internal biliary drain. A second catheter on the right extends to the kemar hepatis . No biliary ductal dilatation. 3. Multiple new and enlarging hepatic lesions, largest measuring 9.5 cm versus 7.8 cm, previously. Co rrelate with any known diagnosis. 4. PEG tube appears appropriately positioned. 5. Large amount of ingested fluid distending the stomach. The duodenum is collapsed. Correlate clinic ally to exclude the possibility of gastric outlet obstruction or gastroparesis. 6. Stool distending the right hemicolon up to 6.3 cm. 7. Splenomegaly (15.0 cm), proximal sigmoid diverticulosis. Marked hypertrophy of the median lobe of the prostate gland (the gland measures up to 6.1 cm). Correlate for BPH.
[2018-01-30] MEDS ORDERED: SODIUM CHLORIDE 0.9% 1,000 ML IV SCH (16:00)
[2018-01-30 16:24] VITALS: RESP 18
[2018-01-30 17:52] VITALS: BP 109/74; PULSE 98
== END 2018-01-30 18:08 | disposition other institution (70) ==
LOC: EC 12:51
DX: K31.1 Adult hypertrophic pyloric stenosis (principal); C15.9 Malignant neoplasm of esophagus, unspecified; C79.9 Secondary malignant neoplasm of unspecified site; D61.818 Other pancytopenia; R16.0 Hepatomegaly, not elsewhere classified; J44.9 Chronic obstructive pulmonary disease, unspecified; N42.9 Disorder of prostate, unspecified; G47.30 Sleep apnea, unspecified; Z99.89 Dependence on other enabling machines and devices; Z93.1 Gastrostomy status; Z92.21 Personal history of antineoplastic chemotherapy; Z98.890 Other specified postprocedural states; Z98.52 Vasectomy status; Z87.891 Personal history of nicotine dependence; Z79.51 Long term (current) use of inhaled steroids; Z79.899 Other long term (current) drug therapy
CPT/HCPCS: 36415; 80053; 82150; 83605; 83690; 85025; 87040; 74177; 99285; 96360; Q9967

== ENCOUNTER 2018-02-06 17:26 | Inpatient (IN) | payer MEDICARE ==
[2018-02-06] MEDS ORDERED: PIPERACILLIN-TAZOBACTAM 3.375 GM in DEXTROSE/WATER 1 50ML.BAG IVPB STA (17:52)
[2018-02-06] MEDS ORDERED: VANCOMYCIN IV PER PHARMACY 1 EACH MISC MISCELLANE PRN (17:52)
[2018-02-06] MEDS ORDERED: ACETAMINOPHEN TAB 500 MG TAB PEJ/J-Tube STA (17:52)
[2018-02-06 18:09] LABS: Anisocytosis Slight; Basophils % (A) 0 %; Eosinophils % (A) 0 %; HCT 34.6 % (39.0-53.0); HGB 11.2 gm/dL (13.0-17.5); Hypochromasia Slight; Lymphocytes # (A) 0.8 k/uL (1.0-4.8); Lymphocytes % (A) 5 %; MCHC 32.4 g/dL (31.0-37.0); Macrocytosis Marked; Mean Platelet Volume 7.9; Monocytes % (A) 7 %; Neutrophils # (A) 13.9 k/uL (1.3-7.7); Neutrophils % (A) 87 %; Platelet Count 185 k/uL (150-450); RDW 18.8 % (11.5-15.5); WBC 15.9 k/uL (3.8-10.6)
--- NOTE | 2018-02-06 18:13 | ED ---
Abdominal Pain HPI - General Chief Complaint: Abdominal Pain Stated Complaint: Abd Pain Time Seen by Provider: 02/06/18 17:32 Source: EMS Mode of arrival: EMS Limitations: no limitations - History of Present Illness Initial Comments: Patient is a 77-year-old male presenting for elevated heart rate, low blood pressure and fever. Livan's bedside and states that the patient has esophageal cancer for which she is currently being treated with chemotherapy by Dr. Garcia in that he was recently admitted within the last week here and eventually transferred to [facility] where daughter states that he had his PEG tube changed out to GJ tube and other drainages for the liver masses were placed. We decided to present him in today because he was more fatigued than normal and had increased heart rate with decreased blood pressure. They also state that his extremities felt very cold but that his mentation is been appropriate in that he is not confused. He denies any vomiting or diarrhea but states that his abdomen is more distended than normal and more tender. - Related Data Home Medications Medication Instructions Recorded Confirmed Albuterol Sulfate [Proair Hfa] 1 puff INHALATION RT-DAILY 12/28/17 01/06/18 Fluticasone/Salmeterol [Advair 1 puff INHALATION RT-BID 12/28/17 01/06/18 250-50 Diskus] Morphine Sulfate ER [Ms Contin] 30 mg PO Q12HR PRN 12/28/17 01/06/18 Prochlorperazine [Compazine] 10 mg PO QID PRN 12/28/17 01/06/18 Tamsulosin [Flomax] 0.4 mg PO HS 12/28/17 01/06/18 Temazepam [Restoril] 15 mg PO HS 12/28/17 01/06/18 Tiotropium [place] [Spiriva 1 puff INHALATION RT-DAILY 12/28/17 01/06/18 Respimat] Esomeprazole Magnesium [NexIUM] 40 mg PO DAILY 01/05/18 01/06/18 Ipratropium-Albuterol Nebulize 3 ml INHALATION RT-BID 01/05/18 01/06/18 [Duoneb 0.5 mg-3 mg/3 ml Soln] Lidocaine-Prilocaine Cream [Emla 1 applic TOPICAL DAILY PRN 01/05/18 01/06/18 Cream 2.5%/2.5%] oxyCODONE ER [OxyCONTIN] 10 mg PO HS PRN 01/05/18 01/06/18 Allergies Allergy/AdvReac Type Severity Reaction Status Date / Time No Known Allergies Allergy Verified 01/30/18 13:20 Review of Systems ROS Statement: Those systems with pertinent positive or pertinent negative responses have been documented in the HPI. Constitutional: Positive for chills, fatigue and fever. HENT: Negative for congestion. Respiratory: Negative for chest tightness, and wheezing. Negative for cough. Positive for shortness of breath Cardiovascular: Negative for chest pain and palpitations. Gastrointestinal: Positive for abdominal pain. Positive for abdominal distention and nausea, negative for diarrhea or vomiting Genitourinary: Negative for dysuria. Musculoskeletal: Negative for back pain, neck pain and neck stiffness. Skin: Negative for color change. Neurological: Negative for dizziness, speech difficulty, weakness and light- headedness. Psychiatric/Behavioral: Negative for agitation and confusion. Negative for anxiety ROS Other: All systems not noted in ROS Statement are negative. 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 egd/dilations/bx, peg tube, drains to liver abscess Past Anesthesia/Blood Transfusion Reactions: No Reported Reaction Past Psychological History: Anxiety, Depression Smoking Status: Former smoker Past Alcohol Use History: None Reported Past Drug Use History: None Reported - Past Family History Mother Family Medical History: Coronary Artery Disease (CAD), Dementia Additional Family Medical History / Comment(s): "heart disease" Father Additional Family Medical History / Comment(s): "heart disease" General Exam - General Exam Comments Initial Comments: Constitutional: Pt is oriented to person, place, and time. Pt appears well- developed and well-nourished. No distress. HENT: Head: Normocephalic and atraumatic. Eyes: EOM are normal. Neck: Normal range of motion. Neck supple. Cardiovascular: Tachycardia present, regular rhythm, S1 normal, S2 normal and normal heart sounds. Exam reveals no gallop and no friction rub. No murmur heard. Pulmonary/Chest: Effort normal. No tachypnea and no bradypnea. No respiratory distress. No wheezes but lower bibasilar rales noted. Abdominal: Soft. Bowel sounds are normal. Pt exhibits mild shifting dullness with mild distension and ascites, no pulsatile liver, no abdominal bruit. There is no tenderness. There is no rigidity, no rebound, no guarding, no tenderness at McBurney's point and negative Carrillo's sign. Musculoskeletal: Normal range of motion. Neurological: Pt is alert and oriented to person, place, and time. No cranial nerve deficit. Skin: Skin is warm and dry. No rash noted. Pt is not diaphoretic. No erythema. No pallor. Psychiatric: Pt has a normal mood and affect. Pt behavior is normal. Thought content normal. Limitations: no limitations Course Vital Signs 02/06/18 02/06/18 02/06/18 17:37 18:30 19:00 Temperature 101.1 F H Pulse Rate 142 H 132 H 120 H Respiratory 20 20 22 Rate Blood Pressure 96/64 108/68 112/67 O2 Sat by Pulse 94 L 95 97 Oximetry 02/06/18 02/06/18 02/06/18 19:30 20:00 20:30 Temperature 99.9 F H Pulse Rate 124 H 113 H 103 H Respiratory 22 24 22 Rate Blood Pressure 99/59 89/59 103/56 O2 Sat by Pulse 95 96 95 Oximetry 02/06/18 21:30 Temperature Pulse Rate 107 H Respiratory 24 Rate Blood Pressure 100/65 O2 Sat by Pulse 96 Oximetry - Reevaluation(s) Reevaluation #1: 02/06/18 19:50 Patient notified of the results from the labs and imaging. Family is unsure whether they want to be placed in ICU. Tachycardia appears to be secondary to sepsis rather than pulmonary embolism. Reevaluation #2: 02/06/18 20:07 Family states that the patient does want to go to the ICU and that he would be okay for intubation but does not want CPR. Reevaluation #3: 02/06/18 20:28 Spoke with hand candle dipper and there is severe concern about keeping the patient here in the ICU as the necessary specialists are not necessarily available to appropriately treat the patient. This is discussed with the family and it was recommended that the patient be transferred back to [facility] or [facility]. However, they stated they do not want to go back. Case will be discussed with Dr. Garcia and general surgery. Patient also refused straight catheterization for urine sample. 02/06/18 20:43 Reevaluation #4: 02/06/18 20:[address] Raines who was covering for and the laboratory studies and imaging were discussed. Because the patient is refusing transfer, it was advised to continue the current course of treatment. Reevaluation #5: 02/06/18 21:03 -spoke with Dr. kidd and it was advised that this patient is not a surgical candidate and that GJ tube should be placed to dependent drainage and recommend continue course of treatment. 02/06/18 21:32 - patient advised that he should have a central line placed but patient is unclear as to whether or not he wants to have this done. Awaiting family physician. Case rediscussed with hand candle dipper who accepts that is fine to admit the patient to ICU 02/06/18 21:52 - Patient was again talked to and he currently declines Fish catheter as well as a central line for pressure support. At this current time of disposition and time of admitting, the patient's pressure was marginal in the mid 90s but he is mentating appropriately. Is advised to him that this could result in decreased blood pressure and worsen his condition overall and he expressed understanding and declined central line again. Medical Decision Making - Medical Decision Making Upon arrival, sepsis order set was initiated and patient was given 1500 mL of normal saline as ejection fraction was unclear. Patient was borderline hypotensive with a systolic pressure in the low 90s and after fluid resuscitation, it increased to high 90s. Heart rate also improved from the 140s to the 110s. Patient was started empirically with vancomycin and Zosyn upon arrival to the emergency department. Laboratory studies show that there was leukocytosis of 15.9 and chest x-ray showed no evidence of acute infiltrate or infectious process. Urinalysis is still pending at the time of disposition and therefore clear source of infection cannot be identified. CT abdomen was performed and showed stable appearance of suspected hepatic masses, prominence of air-filled loops of colon and small bowel with suspicious changes for obstruction not evident. It also showed bowel prominence increased slightly over the interval and possible ileus. Because of this, general surgery so not emergently consult. Additionally, it was felt that pulmonary embolism was less likely and that the heart rate is secondary to the febrile and infection process. Explained all labs and diagnostic test results and that we will admit patient to hospital. Pt is agreeable to plan and case has been discussed with Dr. Yung and they agree to accept the pt. case is also discussed with hand candle dipper as noted in the course section - Lab Data Result diagrams: 02/06/18 17:50 02/06/18 17:50 Lab Results 02/06/18 02/06/18 02/06/18 Range/Units 17:50 17:50 17:50 WBC 15.9 H (3.8-10.6) k/uL RBC 3.20 L (4.30-5.90) m/uL Hgb 11.2 L (13.0-17.5) gm/dL Hct 34.6 L (39.0-53.0) % MCV 108.0 H (80.0-100.0) fL MCH 35.0 (25.0-35.0) pg MCHC 32.4 (31.0-37.0) g/dL RDW 18.8 H (11.5-15.5) % Plt Count 185 (150-450) k/uL Neutrophils % 87 % Lymphocytes % 5 % Monocytes % 7 % Eosinophils % 0 % Basophils % 0 % Neutrophils # 13.9 H (1.3-7.7) k/uL Lymphocytes # 0.8 L (1.0-4.8) k/uL Monocytes # 1.0 (0-1.0) k/uL Eosinophils # 0.0 (0-0.7) k/uL Basophils # 0.0 (0-0.2) k/uL Manual Slide Review Performed Hypochromasia Slight Anisocytosis Slight Macrocytosis Marked PT (9.0-12.0) sec INR (<1.2) APTT (22.0-30.0) sec Sodium 138 (137-145) mmol/L Potassium 5.0 (3.5-5.1) mmol/L Chloride 105 (98-107) mmol/L Carbon Dioxide 25 (22-30) mmol/L Anion Gap 8 mmol/L BUN 31 H (9-20) mg/dL Creatinine 1.00 (0.66-1.25) mg/dL Est GFR (CKD-EPI)AfAm 83 (>60 ml/min/1.73 sqM) Est GFR (CKD-EPI)NonAf 72 (>60 ml/min/1.73 sqM) Glucose 114 H (74-99) mg/dL Lactic Ac Sepsis Rflx Plasma Lactic Acid Julian 3.0 H* (0.7-2.0) mmol/L Calcium 7.5 L (8.4-10.2) mg/dL Total Bilirubin 2.7 H (0.2-1.3) mg/dL AST 89 H (17-59) U/L ALT 93 H (21-72) U/L Alkaline Phosphatase 552 H (38-126) U/L Troponin I (0.000-0.034) ng/mL NT-Pro-B Natriuret Pep pg/mL Total Protein 5.9 L (6.3-8.2) g/dL Albumin 2.6 L (3.5-5.0) g/dL Lipase (23-300) U/L 02/06/18 02/06/18 02/06/18 Range/Units 17:50 17:50 17:50 WBC (3.8-10.6) k/uL RBC (4.30-5.90) m/uL Hgb (13.0-17.5) gm/dL Hct (39.0-53.0) % MCV (80.0-100.0) fL MCH (25.0-35.0) pg MCHC (31.0-37.0) g/dL RDW (11.5-15.5) % Plt Count (150-450) k/uL Neutrophils % % Lymphocytes % % Monocytes % % Eosinophils % % Basophils % % Neutrophils # (1.3-7.7) k/uL Lymphocytes # (1.0-4.8) k/uL Monocytes # (0-1.0) k/uL Eosinophils # (0-0.7) k/uL Basophils # (0-0.2) k/uL Manual Slide Review Hypochromasia Anisocytosis Macrocytosis PT 12.8 H (9.0-12.0) sec INR 1.4 H (<1.2) APTT 25.5 (22.0-30.0) sec Sodium (137-145) mmol/L Potassium (3.5-5.1) mmol/L Chloride (98-107) mmol/L Carbon Dioxide (22-30) mmol/L Anion Gap mmol/L BUN (9-20) mg/dL Creatinine (0.66-1.25) mg/dL Est GFR (CKD-EPI)AfAm (>60 ml/min/1.73 sqM) Est GFR (CKD-EPI)NonAf (>60 ml/min/1.73 sqM) Glucose (74-99) mg/dL Lactic Ac Sepsis Rflx Plasma Lactic Acid Julian (0.7-2.0) mmol/L Calcium (8.4-10.2) mg/dL Total Bilirubin (0.2-1.3) mg/dL AST (17-59) U/L ALT (21-72) U/L Alkaline Phosphatase (38-126) U/L Troponin I 0.016 (0.000-0.034) ng/mL NT-Pro-B Natriuret Pep 758 pg/mL Total Protein (6.3-8.2) g/dL Albumin (3.5-5.0) g/dL Lipase (23-300) U/L 02/06/18 02/06/18 Range/Units 17:50 18:23 WBC (3.8-10.6) k/uL RBC (4.30-5.90) m/uL Hgb (13.0-17.5) gm/dL Hct (39.0-53.0) % MCV (80.0-100.0) fL MCH (25.0-35.0) pg MCHC (31.0-37.0) g/dL RDW (11.5-15.5) % Plt Count (150-450) k/uL Neutrophils % % Lymphocytes % % Monocytes % % Eosinophils % % Basophils % % Neutrophils # (1.3-7.7) k/uL Lymphocytes # (1.0-4.8) k/uL Monocytes # (0-1.0) k/uL Eosinophils # (0-0.7) k/uL Basophils # (0-0.2) k/uL Manual Slide Review Hypochromasia Anisocytosis Macrocytosis PT (9.0-12.0) sec INR (<1.2) APTT (22.0-30.0) sec Sodium (137-145) mmol/L Potassium (3.5-5.1) mmol/L Chloride (98-107) mmol/L Carbon Dioxide (22-30) mmol/L Anion Gap mmol/L BUN (9-20) mg/dL Creatinine (0.66-1.25) mg/dL Est GFR (CKD-EPI)AfAm (>60 ml/min/1.73 sqM) Est GFR (CKD-EPI)NonAf (>60 ml/min/1.73 sqM) Glucose (74-99) mg/dL Lactic Ac Sepsis Rflx Y Plasma Lactic Acid Julian (0.7-2.0) mmol/L Calcium (8.4-10.2) mg/dL Total Bilirubin (0.2-1.3) mg/dL AST (17-59) U/L ALT (21-72) U/L Alkaline Phosphatase (38-126) U/L Troponin I (0.000-0.034) ng/mL NT-Pro-B Natriuret Pep pg/mL Total Protein (6.3-8.2) g/dL Albumin (3.5-5.0) g/dL Lipase 69 (23-300) U/L - EKG Data EKG Comments: EKG shows sinus tachycardia with a rate of 1 39 bpm, NV interval 152, QRS 62, QTC 407. There are no significant ST depressions or elevations. Critical Care Time Critical Care Time: Yes Total Critical Care Time: 30 Critical Care Time: Extensive discussion was had with the patient and her family has noted in the course section of this note. Patient was also aggressively fluid resuscitated but source of infection was not able to be obtained prior to disposition. Disposition Clinical Impression: SIRS (systemic inflammatory response syndrome), Abdominal mass Disposition: ADMITTED IP TO THIS HOSP Condition: Poor Referrals: Martin Ron MD [Primary Care Provider] - 1-2 days Decision to Admit Reason: Admit from EC Decision Date: 02/06/18 Decision Time: 21:54 - Out of Hospital Transfer - Req. Specs Out of Hospital Transfer - Requested Specifics: Intensive Care Unit
[2018-02-06 18:14] LABS: INR 1.4 (<1.2); Partial Thromboplastin Time 25.5 sec (22.0-30.0); Prothrombin Time 12.8 sec (9.0-12.0)
[2018-02-06 18:15] LABS: Albumin 2.6 g/dL (3.5-5.0); Calcium 7.5 mg/dL (8.4-10.2); Total Bilirubin 2.7 mg/dL (0.2-1.3); Total Protein 5.9 g/dL (6.3-8.2)
[2018-02-06] MEDS ORDERED: VANCOMYCIN 1,500 MG in SODIUM CHLORIDE 0.9% 250 ML IVPB ONE (18:15)
[2018-02-06] MEDS: SODIUM CHLORIDE 0.9% 500 ML IV SCH ×2 (18:31→18:32)
[2018-02-06] MEDS: SODIUM CHLORIDE 0.9% 1,000 ML IV SCH (18:31)
[2018-02-06] MEDS ORDERED: ACETAMINOPHEN IV (For NPO) 1,000 MG in EMPTY BAG 1 BAG IVPB ONE (18:33)
--- NOTE | 2018-02-06 19:24 | CT ---
EXAMINATION TYPE: CT abdomen pelvis w con DATE OF EXAM: 02/06/2018 COMPARISON: 01/30/2018 INDICATION: Abdominal pain, hypotension. hx of esophageal CA with mets DLP: 1052.4 mGycm, Automated exposure control for dose reduction was used. CONTRAST: 100 mL of Isovue 300. Study performed without Oral Contrast TECHNIQUE: Axial images were obtained from above the diaphragm to the pubic rami in the axial plane a t 5 mm thick sections. Reconstructed images are reviewed on the computer in the coronal plane. FINDINGS: Limited CT sections are obtained the lung bases. Minimal right pleural effusion is present. Small lef t pleural effusion is present. CT ABDOMEN:Ascites is present. This was present previously and appears similar. PEG tube is present. Patient's esophageal cancer is not identified. Liver: Liver has a heterogenous appearance. Drainage catheter is present. There is a large hypodensit y within the liver present previously. Spleen: Normal Pancreas: Normal Adrenal glands: The adrenal glands are normal. Gallbladder: Normal Kidneys: No masses are evident. No hydronephrosis is present. No cysts are present. Delayed images were obtained through the kidneys, which remain unremarkable. Aorta: Vascular calcification is within the aorta. Inferior vena cava: Normal. CT PELVIS: Multiple air-filled loops of bowel are present. The colon appears prominent. Small bowel loops are so mewhat prominent. The zone of transition appears to be within the splenic flexure. Series 7 image 59. Partial obstruction is not excluded. Follow prominence is mildly diffusely increased from the compar carrie. Appendix: Not identified Urinary bladder: Decompressed with limited evaluation. The prostate may has some inferior impression on the urinary bladder Genitourinary structures: Prostate is prominent. Osseous structures: No suspicious lytic or sclerotic lesions. IMPRESSIONS: 1. Stable appearance of suspected hepatic masses. 2. Some prominence of air-filled loops of colon and small bowel loops. Suspicious changes for obstruc tion however are not evident. 3. Bowel prominences increased slightly over the interval. Correlate for ileus. There may be a zone o f transition at the splenic flexure within the colon.
--- NOTE | 2018-02-06 19:28 | XR ---
EXAMINATION TYPE: XR chest 2V DATE OF EXAM: 02/06/2018 COMPARISON: None INDICATION: Abdominal pain, fever history of esophageal metastases TECHNIQUE: Frontal and lateral views of the chest are obtained. FINDINGS: The heart size is normal. The pulmonary vasculature is normal. The lungs are clear. Port is present on the left tip in the superior vena cava region. IMPRESSION: 1. No acute pulmonary process.
[2018-02-06] MEDS ORDERED: SODIUM CHLORIDE 0.9% 500 ML IV ONE (20:07)
[2018-02-06] MEDS ORDERED: ACETAMINOPHEN SUPPOSITORY 650 MG SUPP RECTAL PRN (21:56)
[2018-02-06] MEDS ORDERED: NALOXONE 0.4 MG/ML 1 ML VIAL IV PRN (21:56)
[2018-02-06 22:08] LABS: Appearance,Urine Clear (Clear); Bacteria,Urine Rare /hpf; Bilirubin,Urine Negative (Negative); Blood,Urine Negative (Negative); Color,Urine Dark Yellow; Glucose,Urine (UA) Negative (Negative); Hyaline Casts,Urine 1 /lpf (0-2); Ketones,Urine Negative (Negative); Leukocyte Esterase,Urine Small (Negative); Mucus,Urine Rare /hpf; Nitrite,Urine Negative (Negative); Protein,Urine 1+ (Negative); RBC,Urine 9 /hpf (0-5); WBC,Urine 11 /hpf (0-5)
[2018-02-06 22:23] LABS: Specific Gravity,Urine >1.050 (1.001-1.035)
[2018-02-06] MEDS: MORPHINE SULFATE 4 MG/ML SYRINGE IV PRN (22:24)
[2018-02-06 23:33] LABS: Glucose,Whole Blood 113 mg/dL (75-99)
[2018-02-07] MEDS: SODIUM CHLORIDE 0.9% 1,000 ML IV SCH ×3 (00:38→20:44)
[2018-02-07 04:42] LABS: Anisocytosis Slight; Basophils % (A) 0 %; Eosinophils % (A) 0 %; HCT 32.2 % (39.0-53.0); HGB 10.1 gm/dL (13.0-17.5); Hypochromasia Marked; Lymphocytes % (A) 8 %; MCH 34.9 pg (25.0-35.0); MCHC 31.4 g/dL (31.0-37.0); MCV 111.1 fL (80.0-100.0); Macrocytosis Marked; Mean Platelet Volume 8.3; Monocytes # (A) 0.9 k/uL (0-1.0); Monocytes % (A) 6 %; Neutrophils # (A) 11.3 k/uL (1.3-7.7); Neutrophils % (A) 85 %; Platelet Count 136 k/uL (150-450); RBC 2.89 m/uL (4.30-5.90); RDW 18.7 % (11.5-15.5); WBC 13.3 k/uL (3.8-10.6)
[2018-02-07 05:05] LABS: Albumin 2.2 g/dL (3.5-5.0); Calcium 6.8 mg/dL (8.4-10.2); Magnesium 2.4 mg/dL (1.6-2.3); Phosphorus 3.6 mg/dL (2.5-4.5); Total Protein 5.2 g/dL (6.3-8.2)
[2018-02-07 05:23] LABS: Potassium 5.1 mmol/L (3.5-5.1)
--- NOTE | 2018-02-07 06:48 | XR ---
EXAMINATION TYPE: XR chest 1V DATE OF EXAM: 02/07/2018 HISTORY: icu patient. REFERENCE: Previous study dated 02/06/2018. FINDINGS: A left internal jugular catheter remains in place unchanged in appearance. The lungs are clear. Pleural space are clear. The heart is not enlarged. IMPRESSION: NO ACUTE INTRATHORACIC DISEASE.
[2018-02-07] MEDS: PIPERACILLIN-TAZOBACTAM 3.375 GM in DEXTROSE/WATER 1 50ML.BAG IVPB SCH ×3 (06:57→21:01)
[2018-02-07] MEDS: ONDANSETRON 4 MG/2 ML VIAL IVP PRN ×3 (08:59→20:44)
[2018-02-07] MEDS: PANTOPRAZOLE 40 MG/10 ML VIAL IV SCH (08:59)
--- NOTE | 2018-02-07 10:58 | P.HPIM ---
History of Present Illness H&P Date: 02/07/18 Chief Complaint: Abdominal pain with nausea This is 77 years old male with past medical history significant for esophageal cancer with liver metastasis presents to the hospital with abdominal pain and intractable vomiting. Initial evaluation in the emergency revealed possible ileus versus small bowel obstruction patient kept nothing by mouth treated symptomatically and his PEG tube was placed to dependent drainage. Patient currently feels improved with less nausea and less abdominal pain and stated he is at least like 50% improved since yesterday. Patient reported severe constipation and stated that it's been 5 days without bowel movement but he still passing gas. Patient reported significant declining in his appetite and subjective weight loss. Daughter at the bedside who brought him to the hospital and stated that he's been declining steadily since his last chemo 5 weeks ago but decided with his oncologist to continue another round of chemo before given up. Patient recently received new J-tube placed and to hepatic drains placed to his right upper quadrant due to biliary obstruction and has been draining green material without any difficulty. Currently his dependent drainage bag is filled with a green was some brownish material. Review of Systems All 14 systems reviewed and negative except as above Past Medical History Past Medical History: Cancer, COPD, Hyperlipidemia, Hypertension, Osteoarthritis (OA), Pneumonia, Prostate Disorder, Sleep Apnea/CPAP/BIPAP Additional Past Medical History / Comment(s): HOME OXYGEN PRN. lt eye cataract that needs to have sx had rt cataract done already, pt stated he has esophageal cancer with mets to bone and liver (last chemo about 5 weeks ago). History of Any Multi-Drug Resistant Organisms: None Reported Past Surgical History: Hernia Repair, Orthopedic Surgery Additional Past Surgical History / Comment(s): VASECTOMY.rt knee arthroscopy, rt eye cataract. egd/dilations/bx, peg tube, drains to liver abscess Past Anesthesia/Blood Transfusion Reactions: No Reported Reaction Past Psychological History: Anxiety, Depression Smoking Status: Former smoker Past Alcohol Use History: None Reported Additional Past Alcohol Use History / Comment(s): Patient was a smoker starting at age 15 1 pack a day and quit in 1990. No illicit drug use. Patient lives with his . They winter in [place] and lived in [place] for the bond. 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 Past Drug Use History: None Reported - Past Family History Mother Family Medical History: Coronary Artery Disease (CAD), Dementia Additional Family Medical History / Comment(s): "heart disease" Father Additional Family Medical History / Comment(s): "heart disease" Medications and Allergies Home Medications Medication Instructions Recorded Confirmed Type Albuterol Sulfate [Proair Hfa] 1 puff INHALATION RT-DAILY 12/28/17 02/06/18 History Fluticasone/Salmeterol [Advair 1 puff INHALATION RT-BID 12/28/17 02/06/18 History 250-50 Diskus] Morphine Sulfate ER [Ms Contin] 30 mg PO Q12HR PRN 12/28/17 02/06/18 History Prochlorperazine [Compazine] 10 mg PO QID PRN 12/28/17 02/06/18 History Temazepam [Restoril] 15 mg PO 12/28/17 02/06/18 History Tiotropium [place] [Spiriva 1 puff INHALATION RT-DAILY 12/28/17 02/06/18 History Respimat] Ipratropium-Albuterol Nebulize 3 ml INHALATION RT-BID 01/05/18 02/06/18 History [Duoneb 0.5 mg-3 mg/3 ml Soln] Lidocaine-Prilocaine Cream [Emla 1 applic TOPICAL DAILY PRN 01/05/18 02/06/18 History Cream 2.5%/2.5%] oxyCODONE ER [OxyCONTIN] 10 mg PO BID PRN 01/05/18 02/06/18 History Sennosides-Docusate Sodium 1 tab PO DAILY 02/06/18 02/06/18 History [Senokot-S] Terazosin HCl 1 mg PO HS 02/06/18 02/06/18 History Allergies Allergy/AdvReac Type Severity Reaction Status Date / Time No Known Allergies Allergy Verified 01/30/18 13:20 Physical Exam Vitals: Vital Signs Temp Pulse Resp BP Pulse Ox 02/07/18 10:00 95 14 95/64 95 02/07/18 09:00 95 17 101/77 96 02/07/18 08:00 98.0 F 96 16 99/62 97 02/07/18 07:00 96 19 107/64 94 L 02/07/18 06:00 90 17 92/61 97 02/07/18 05:00 92 17 95/59 97 02/07/18 04:00 98.2 F 91 15 92/61 96 02/07/18 03:30 94 16 104/58 95 02/07/18 03:00 95 12 104/58 97 02/07/18 02:00 96 18 90/64 98 02/07/18 01:00 97 18 94/65 96 02/07/18 00:00 98.1 F 103 H 20 101/69 97 02/06/18 23:40 98.1 F 100 16 101/69 98 02/06/18 23:14 99.9 F H 103 H 24 96/56 96 02/06/18 22:45 99.9 F H 102 H 24 100/60 95 02/06/18 22:31 98.1 F 02/06/18 22:00 99.0 F 105 H 22 99/60 97 02/06/18 21:30 107 H 24 100/65 96 02/06/18 20:30 103 H 22 103/56 95 02/06/18 20:00 113 H 24 89/59 96 02/06/18 19:30 99.9 F H 124 H 22 99/59 95 02/06/18 19:00 120 H 22 112/67 97 02/06/18 18:30 132 H 20 108/68 95 02/06/18 17:37 101.1 F H 142 H 20 96/64 94 L Intake and Output 02/06/18 02/07/18 02/07/18 22:59 06:59 14:59 Intake Total 750.0 450 Output Total 70 1100 1125 Balance -70 -350.0 -675 Intake: IV 750.0 450 Piperacillin-Tazobactam 3 50.0 50 .375 gm In Dextrose/Water 1 50ml.bag @ 12.5 mls/hr IVPB ONCE STA Rx#: [id number] Sodium Chloride 0.9% 1, 700 400 000 ml @ 100 mls/hr IV . Q10H [facility] Rx#:[id number] Output: Gastric Drainage 900 Drainage 1000 J tube 1000 Urine 70 200 125 Other: Voiding Method Urinal # Voids 0 Weight 76.4 kg Gen.: in stated age, no acute distress Heart: Normal S1-S2 Lungs: Clear to auscultation bilaterally Abdomen: Soft, positive for generalized tenderness without guarding or rebound, positive for hypoactive bowel sounds, positive for mid abdomen J tube in place, positive for right upper quadrant to percutaneous drainage in place with greenish colored material. Skin: No new rash Psych: Alert and oriented 3 Neuro: No focal deficit Results CBC & Chem 7: 02/07/18 03:29 02/07/18 03:29 Labs: Abnormal Lab Results - Last 24 Hours (Table) 02/06/18 02/06/18 02/06/18 Range/Units 17:50 17:50 17:50 WBC 15.9 H (3.8-10.6) k/uL RBC 3.20 L (4.30-5.90) m/uL Hgb 11.2 L (13.0-17.5) gm/dL Hct 34.6 L (39.0-53.0) % MCV 108.0 H (80.0-100.0) fL RDW 18.8 H (11.5-15.5) % Plt Count (150-450) k/uL Neutrophils # 13.9 H (1.3-7.7) k/uL Lymphocytes # 0.8 L (1.0-4.8) k/uL PT (9.0-12.0) sec INR (<1.2) BUN 31 H (9-20) mg/dL Glucose 114 H (74-99) mg/dL POC Glucose (mg/dL) (75-99) mg/dL Plasma Lactic Acid Julian 3.0 H* (0.7-2.0) mmol/L Calcium 7.5 L (8.4-10.2) mg/dL Magnesium (1.6-2.3) mg/dL Total Bilirubin 2.7 H (0.2-1.3) mg/dL AST 89 H (17-59) U/L ALT 93 H (21-72) U/L Alkaline Phosphatase 552 H (38-126) U/L Total Protein 5.9 L (6.3-8.2) g/dL Albumin 2.6 L (3.5-5.0) g/dL Ur Specific [place] (1.001-1.035) Urine Protein (Negative) Ur Leukocyte Esterase (Negative) Urine RBC (0-5) /hpf Urine WBC (0-5) /hpf Urine Bacteria (None) /hpf Urine Mucus (None) /hpf 02/06/18 02/06/18 02/06/18 Range/Units 17:50 21:45 23:32 WBC (3.8-10.6) k/uL RBC (4.30-5.90) m/uL Hgb (13.0-17.5) gm/dL Hct (39.0-53.0) % MCV (80.0-100.0) fL RDW (11.5-15.5) % Plt Count (150-450) k/uL Neutrophils # (1.3-7.7) k/uL Lymphocytes # (1.0-4.8) k/uL PT 12.8 H (9.0-12.0) sec INR 1.4 H (<1.2) BUN (9-20) mg/dL Glucose (74-99) mg/dL POC Glucose (mg/dL) 113 H (75-99) mg/dL Plasma Lactic Acid [place] (0.7-2.0) mmol/L Calcium (8.4-10.2) mg/dL Magnesium (1.6-2.3) mg/dL Total Bilirubin (0.2-1.3) mg/dL AST (17-59) U/L ALT (21-72) U/L Alkaline Phosphatase (38-126) U/L Total Protein (6.3-8.2) g/dL Albumin (3.5-5.0) g/dL Ur Specific [place] >1.050 H (1.001-1.035) Urine Protein 1+ H (Negative) Ur Leukocyte Esterase Small H (Negative) Urine RBC 9 H (0-5) /hpf Urine WBC 11 H (0-5) /hpf Urine Bacteria Rare H (None) /hpf Urine Mucus Rare H (None) /hpf 02/07/18 02/07/18 Range/Units 03:29 03:29 WBC 13.3 H (3.8-10.6) k/uL RBC 2.89 L (4.30-5.90) m/uL Hgb 10.1 L (13.0-17.5) gm/dL Hct 32.2 L (39.0-53.0) % MCV 111.1 H (80.0-100.0) fL RDW 18.7 H (11.5-15.5) % Plt Count 136 L (150-450) k/uL Neutrophils # 11.3 H (1.3-7.7) k/uL Lymphocytes # (1.0-4.8) k/uL PT (9.0-12.0) sec INR (<1.2) BUN 33 H (9-20) mg/dL Glucose 108 H (74-99) mg/dL POC Glucose (mg/dL) (75-99) mg/dL Plasma Lactic Acid [place] (0.7-2.0) mmol/L Calcium 6.8 L (8.4-10.2) mg/dL Magnesium 2.4 H (1.6-2.3) mg/dL Total Bilirubin 3.0 H (0.2-1.3) mg/dL AST 135 H (17-59) U/L ALT 108 H (21-72) U/L Alkaline Phosphatase 413 H (38-126) U/L Total Protein 5.2 L (6.3-8.2) g/dL Albumin 2.2 L (3.5-5.0) g/dL Ur Specific [place] (1.001-1.035) Urine Protein (Negative) Ur Leukocyte Esterase (Negative) Urine RBC (0-5) /hpf Urine WBC (0-5) /hpf Urine Bacteria (None) /hpf Urine Mucus (None) /hpf Microbiology - Last 24 Hours (Table) 02/06/18 17:50 Blood Culture Gram Stain - Preliminary Blood 02/06/18 21:45 Urine Culture - Preliminary Urine,Voided 02/06/18 17:50 Blood Culture - Final Blood Thrombosis Risk Factor Assmnt - Choose All That Apply Any of the Below Risk Factors Present?: Yes Each Factor Represents 1 point: Abnormal pulmonary function (COPD), Medical pt on bed rest, Obesity (BMI >25) Other Risk Factors: Yes Each Risk Factor Represents 2 Points: Malignancy Each Risk Factor Represents 3 Points: Age 75 years or older Other congenital or acquired thrombophilia - If yes, enter type in comment: No Thrombosis Risk Factor Assessment Total Risk Factor Score: 8 Thrombosis Risk Factor Assessment Level: High Risk Assessment and Plan Assessment: 1. Small bowel obstruction. 2. Esophageal cancer with liver metastasis. 3. Intractable nausea no vomiting. 4. Status post PEG tube placement. 5. Status post dual percutaneous biliary tube placements. 6. Severe protein calorie malnutrition. 7. Ongoing weight loss. 8. Severe debility and deconditioning. 9. Mild leukocytosis. 10. Anemia of chronic disease. 11. Asymptomatic bacteriuria. 12. Chronic pain syndrome. 13. Chronic constipation. Plan discussed with daughter and critical care physician at the bedside where we would like to keep patient's nothing by mouth continue placing PEG tube to dependent drainage, continue treating patient symptomatically for nausea and abdominal pain, follow-up on general surgery recommendation but patient is poor surgical candidate anyway. I would like to follow-up with his oncologist recommendation regarding treatment plan as patient carries poor prognosis and may benefit from hospice consult at this point. Family would like to continue current treatment and his CODE STATUS determent to be full code at this point
[2018-02-07] MEDS: FLUCONAZOLE IN NACL,ISO-OSM 100 MG in SALINE 1 50ML.BAG IVPB SCH (11:05)
--- NOTE | 2018-02-07 11:12 | P.GSCN ---
History of Present Illness Consult date: 02/07/18 History of present illness: This is a 77-year-old male who presented to the hospital with sepsis. He has a complicated medical history including stage IV esophageal cancer with liver metastasis. He was recently at [facility] where she had his PEG tube replaced for a GJ tube. He also had placement of a PTC drain secondary to biliary obstruction. Patient presented to the ER with sepsis and complaints of abdominal distention with nausea and vomiting. He has not had a bowel movement for 5 days. He is passing gas. Past Medical History Past Medical History: Cancer, COPD, Hyperlipidemia, Hypertension, Osteoarthritis (OA), Pneumonia, Prostate Disorder, Sleep Apnea/CPAP/BIPAP Additional Past Medical History / Comment(s): HOME OXYGEN PRN. lt eye cataract that needs to have sx had rt cataract done already, pt stated he has esophageal cancer with mets to bone and liver (last chemo about 5 weeks ago). History of Any Multi-Drug Resistant Organisms: None Reported Past Surgical History: Hernia Repair, Orthopedic Surgery Additional Past Surgical History / Comment(s): VASECTOMY.rt knee arthroscopy, rt eye cataract. egd/dilations/bx, peg tube, drains to liver abscess Past Anesthesia/Blood Transfusion Reactions: No Reported Reaction Past Psychological History: Anxiety, Depression Smoking Status: Former smoker Past Alcohol Use History: None Reported Additional Past Alcohol Use History / Comment(s): Patient was a smoker starting at age 15 1 pack a day and quit in 1990. No illicit drug use. Patient lives with his . They winter in [place] and lived in [place] for the bond. 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 Past Drug Use History: None Reported - Past Family History Mother Family Medical History: Coronary Artery Disease (CAD), Dementia Additional Family Medical History / Comment(s): "heart disease" Father Additional Family Medical History / Comment(s): "heart disease" Medications and Allergies Home Medications Medication Instructions Recorded Confirmed Type Albuterol Sulfate [Proair Hfa] 1 puff INHALATION RT-DAILY 12/28/17 02/06/18 History Fluticasone/Salmeterol [Advair 1 puff INHALATION RT-BID 12/28/17 02/06/18 History 250-50 Diskus] Morphine Sulfate ER [Ms Contin] 30 mg PO Q12HR PRN 12/28/17 02/06/18 History Prochlorperazine [Compazine] 10 mg PO QID PRN 12/28/17 02/06/18 History Temazepam [Restoril] 15 mg PO HS 12/28/17 02/06/18 History Tiotropium [place] [Spiriva 1 puff INHALATION RT-DAILY 12/28/17 02/06/18 History Respimat] Ipratropium-Albuterol Nebulize 3 ml INHALATION RT-BID 01/05/18 02/06/18 History [Duoneb 0.5 mg-3 mg/3 ml Soln] Lidocaine-Prilocaine Cream [Emla 1 applic TOPICAL DAILY PRN 01/05/18 02/06/18 History Cream 2.5%/2.5%] oxyCODONE ER [OxyCONTIN] 10 mg PO BID PRN 01/05/18 02/06/18 History Sennosides-Docusate Sodium 1 tab PO DAILY 02/06/18 02/06/18 History [Senokot-S] Terazosin HCl 1 mg PO HS 02/06/18 02/06/18 History Allergies Allergy/AdvReac Type Severity Reaction Status Date / Time No Known Allergies Allergy Verified 02/07/18 11:05 Surgical - Exam Osteopathic Statement: *. No significant issues noted on an osteopathic structural exam other than those noted in the History and Physical/Consult. Vital Signs Temp Pulse Resp BP Pulse Ox 101.1 F H 142 H 20 96/64 94 L 02/06/18 17:37 02/06/18 17:37 02/06/18 17:37 02/06/18 17:37 02/06/18 17:37 - General no distress, cachectic, chronically ill - Eyes PERRL - Neck trachea midline - Respiratory normal expansion, normal respiratory effort - Cardiovascular Rhythm: regular - Abdomen Soft distended nontender to palpation. PTC drain in place with biliary drainage. GJ tube in place with gastric output - Neurologic normal coordination, normal sensation - Psychiatric oriented to time, oriented to person, oriented to place Results - Labs 02/07/18 03:29 02/07/18 03:29 Abnormal Lab Results - Last 24 Hours (Table) 02/06/18 02/06/18 02/06/18 Range/Units 17:50 17:50 17:50 WBC 15.9 H (3.8-10.6) k/uL RBC 3.20 L (4.30-5.90) m/uL Hgb 11.2 L (13.0-17.5) gm/dL Hct 34.6 L (39.0-53.0) % MCV 108.0 H (80.0-100.0) fL RDW 18.8 H (11.5-15.5) % Plt Count (150-450) k/uL Neutrophils # 13.9 H (1.3-7.7) k/uL Lymphocytes # 0.8 L (1.0-4.8) k/uL PT (9.0-12.0) sec INR (<1.2) BUN 31 H (9-20) mg/dL Glucose 114 H (74-99) mg/dL POC Glucose (mg/dL) (75-99) mg/dL Plasma Lactic Acid [place] 3.0 H* (0.7-2.0) mmol/L Calcium 7.5 L (8.4-10.2) mg/dL Magnesium (1.6-2.3) mg/dL Total Bilirubin 2.7 H (0.2-1.3) mg/dL AST 89 H (17-59) U/L ALT 93 H (21-72) U/L Alkaline Phosphatase 552 H (38-126) U/L Total Protein 5.9 L (6.3-8.2) g/dL Albumin 2.6 L (3.5-5.0) g/dL Ur Specific [place] (1.001-1.035) Urine Protein (Negative) Ur Leukocyte Esterase (Negative) Urine RBC (0-5) /hpf Urine WBC (0-5) /hpf Urine Bacteria (None) /hpf Urine Mucus (None) /hpf 02/06/18 02/06/18 02/06/18 Range/Units 17:50 21:45 23:32 WBC (3.8-10.6) k/uL RBC (4.30-5.90) m/uL Hgb (13.0-17.5) gm/dL Hct (39.0-53.0) % MCV (80.0-100.0) fL RDW (11.5-15.5) % Plt Count (150-450) k/uL Neutrophils # (1.3-7.7) k/uL Lymphocytes # (1.0-4.8) k/uL PT 12.8 H (9.0-12.0) sec INR 1.4 H (<1.2) BUN (9-20) mg/dL Glucose (74-99) mg/dL POC Glucose (mg/dL) 113 H (75-99) mg/dL Plasma Lactic Acid [place] (0.7-2.0) mmol/L Calcium (8.4-10.2) mg/dL Magnesium (1.6-2.3) mg/dL Total Bilirubin (0.2-1.3) mg/dL AST (17-59) U/L ALT (21-72) U/L Alkaline Phosphatase (38-126) U/L Total Protein (6.3-8.2) g/dL Albumin (3.5-5.0) g/dL Ur Specific [place] >1.050 H (1.001-1.035) Urine Protein 1+ H (Negative) Ur Leukocyte Esterase Small H (Negative) Urine RBC 9 H (0-5) /hpf Urine WBC 11 H (0-5) /hpf Urine Bacteria Rare H (None) /hpf Urine Mucus Rare H (None) /hpf 02/07/18 02/07/18 Range/Units 03:29 03:29 WBC 13.3 H (3.8-10.6) k/uL RBC 2.89 L (4.30-5.90) m/uL Hgb 10.1 L (13.0-17.5) gm/dL Hct 32.2 L (39.0-53.0) % MCV 111.1 H (80.0-100.0) fL RDW 18.7 H (11.5-15.5) % Plt Count 136 L (150-450) k/uL Neutrophils # 11.3 H (1.3-7.7) k/uL Lymphocytes # (1.0-4.8) k/uL PT (9.0-12.0) sec INR (<1.2) BUN 33 H (9-20) mg/dL Glucose 108 H (74-99) mg/dL POC Glucose (mg/dL) (75-99) mg/dL Plasma Lactic Acid [place] (0.7-2.0) mmol/L Calcium 6.8 L (8.4-10.2) mg/dL Magnesium 2.4 H (1.6-2.3) mg/dL Total Bilirubin 3.0 H (0.2-1.3) mg/dL AST 135 H (17-59) U/L ALT 108 H (21-72) U/L Alkaline Phosphatase 413 H (38-126) U/L Total Protein 5.2 L (6.3-8.2) g/dL Albumin 2.2 L (3.5-5.0) g/dL Ur Specific [place] (1.001-1.035) Urine Protein (Negative) Ur Leukocyte Esterase (Negative) Urine RBC (0-5) /hpf Urine WBC (0-5) /hpf Urine Bacteria (None) /hpf Urine Mucus (None) /hpf Microbiology - Last 24 Hours (Table) 02/06/18 17:50 Blood Culture Gram Stain - Preliminary Blood 02/06/18 21:45 Urine Culture - Preliminary Urine,Voided 02/06/18 17:50 Blood Culture - Final Blood Diabetes panel 02/06/18 02/07/18 Range/Units 17:50 03:29 Sodium 138 138 (137-145) mmol/L Potassium 5.0 5.1 (3.5-5.1) mmol/L Chloride 105 107 (98-107) mmol/L Carbon Dioxide 25 24 (22-30) mmol/L BUN 31 H 33 H (9-20) mg/dL Creatinine 1.00 1.09 (0.66-1.25) mg/dL Glucose 114 H 108 H (74-99) mg/dL Calcium 7.5 L 6.8 L (8.4-10.2) mg/dL AST 89 H 135 H (17-59) U/L ALT 93 H 108 H (21-72) U/L Alkaline Phosphatase 552 H 413 H (38-126) U/L Total Protein 5.9 L 5.2 L (6.3-8.2) g/dL Albumin 2.6 L 2.2 L (3.5-5.0) g/dL Calcium panel 02/06/18 02/07/18 Range/Units 17:50 03:29 Calcium 7.5 L 6.8 L (8.4-10.2) mg/dL Phosphorus 3.6 (2.5-4.5) mg/dL Albumin 2.6 L 2.2 L (3.5-5.0) g/dL Pituitary panel 02/06/18 02/07/18 Range/Units 17:50 03:29 Sodium 138 138 (137-145) mmol/L Potassium 5.0 5.1 (3.5-5.1) mmol/L Chloride 105 107 (98-107) mmol/L Carbon Dioxide 25 24 (22-30) mmol/L BUN 31 H 33 H (9-20) mg/dL Creatinine 1.00 1.09 (0.66-1.25) mg/dL Glucose 114 H 108 H (74-99) mg/dL Calcium 7.5 L 6.8 L (8.4-10.2) mg/dL Adrenal panel 18 02/07/18 Range/Units 17:50 03:29 Sodium 138 138 (137-145) mmol/L Potassium 5.0 5.1 (3.5-5.1) mmol/L Chloride 105 107 (98-107) mmol/L Carbon Dioxide 25 24 (22-30) mmol/L BUN 31 H 33 H (9-20) mg/dL Creatinine 1.00 1.09 (0.66-1.25) mg/dL Glucose 114 H 108 H (74-99) mg/dL Calcium 7.5 L 6.8 L (8.4-10.2) mg/dL Total Bilirubin 2.7 H 3.0 H (0.2-1.3) mg/dL AST 89 H 135 H (17-59) U/L ALT 93 H 108 H (21-72) U/L Alkaline Phosphatase 552 H 413 H (38-126) U/L Total Protein 5.9 L 5.2 L (6.3-8.2) g/dL Albumin 2.6 L 2.2 L (3.5-5.0) g/dL Assessment and Plan Assessment: Stage IV esophageal cancer, biliary obstruction s/p PTC drain, ileus vs sbo Plan: Had a lengthy discussion with the patient and the patient's family. Given his poor prognosis and stage IV cancer he is not a surgical candidate for major surgical intervention at this time. Plan is for dependent drainage to better G and J-tube. If the G-tube has significant output while J-tube has scant output we may trial tube feeds through the J-tube keeping the G-tube dependent drainage. Patient also had stool and gas in his rectum on CT he may benefit from suppositories and/or enemas. Continue ABX and medical management per ICU and primary
[2018-02-07] MEDS ORDERED: BISACODYL 10 MG SUPP RECTAL STA (11:13)
[2018-02-07] MEDS: NYSTATIN 100,000 UNIT/ML SUSP 500,000 UNIT/5 ML CUP PO SCH ×3 (12:22→21:01)
[2018-02-07] MEDS: VANCOMYCIN 1,250 MG in SODIUM CHLORIDE 0.9% 250 ML IVPB SCH (12:22)
[2018-02-07] MEDS ORDERED: ACETAMINOPHEN IV (For NPO) 1,000 MG in EMPTY BAG 1 BAG IVPB PRN (15:35)
[2018-02-07] MEDS: MORPHINE SULFATE 4 MG/ML SYRINGE IV PRN ×2 (18:00→20:43)
--- NOTE | 2018-02-07 23:34 | CONS ---
CONSULTATION DATE OF SERVICE: 02/07/2018. REASON FOR CONSULTATION: Esophageal cancer. CHIEF COMPLAINT: Weakness and fever. HISTORY OF PRESENT ILLNESS: Mr. Bustos is a very pleasant 77 years old gentleman very well known to our practice. He has been under the care of Dr. Garcia. He was diagnosed with metastatic esophageal carcinoma earlier this year. The patient has received 2 lines of systemic treatment initially with FOLFOX and then FOLFIRI, regimen, however, he has progressed on that. Recently he developed significant further progression of his liver metastases and obstructive jaundice. He was referred to [facility] and a he did ended up having PTC drain and also he had his PEG tube replaced by J-tube. He presented to the emergency department yesterday complaining of abdominal distention, nausea, vomiting, and fever and he has not had a bowel movement for about 5 days. In the emergency department, he had a CT scan done which revealed possible bowel obstruction, but it was not that obvious along with multiple liver metastases. The patient ended up being admitted to the intensive care unit. Currently, he is on broad-spectrum antibiotics and he is also on vasopressors. He has been seen and evaluated by surgery and there is no plan for any surgical intervention and has been treated conservatively. He feels weak, has abdominal pain, abdominal distention. He has lost a lot of weight. He had fever and chills at home. He has also episodes of nausea, no vomiting. He has not had a bowel movement for 5 days. No melena, hematochezia, hemoptysis, hematemesis or epistaxis. PAST MEDICAL HISTORY: In addition to what is stated above in regard to his metastatic esophageal carcinoma, he has a history of COPD, hyperlipidemia, hypertension, osteoarthritis, and sleep apnea. SURGERY: He had cataracts and cataract surgery. He had hernia repair. He had a history of vasectomy in the past, right knee arthroscopy. SOCIAL HISTORY: He used to smoke starting at age 15, 1 pack of cigarettes daily. He quit in 1990. No illicit drug use. He does have a history of asbestos exposure. FAMILY HISTORY: Significant for coronary artery disease and dementia. REVIEW OF SYSTEMS: As stated above in the history of present illness. MEDICATION: Medications and allergies are reviewed in his electronic medical record. PHYSICAL EXAMINATION: He is alert, oriented x3. He is a elderly gentleman. He does not appear to be in distress at this time. His vital signs are temperature 97.8. He had a fever 101.1 yesterday in the emergency department, blood pressure 104/63, respiration 18, pulse is 89. HEENT: Normocephalic, atraumatic. He has obvious scleral icterus. Oral mucosa are dry. NECK: Supple chest equal expansion bilaterally. LUNGS: Clear to auscultation with decreased breath sounds both bases. Heart is tachy and regular rate and rhythm. Abdomen is distended. He has hepatomegaly and he has generalized tenderness more pronounced in the right upper quadrant. Extremities revealed 2+ edema. Skin reveals bruises upper extremities. No ecchymosis or petechiae. Lymphatics: No peripherally enlarged cervical or supraclavicular nodes. MUSCULOSKELETAL: No percussion tenderness detected over his sternum or ribs. LABORATORY DATA: Sodium 138, potassium 5.1, chloride 107, CO2 is 24, and BUN 33, creatinine 1.08. The total bilirubin is 3, AST 135, ALT is 108, alkaline phosphatase is 413. WBC of 13.3, hemoglobin 10.1, hematocrit 32.1, platelets are 136. IMPRESSION: 1. Metastatic and progressing esophageal carcinoma as stated above. The patient has progressing liver metastases and development of obstructive jaundice. The patient underwent PTC drain recently at [facility]. 2. Possible bowel obstruction. 3. Underlying sepsis is likely related to his PTC drain. 4. Multiple other comorbidities. RECOMMENDATIONS: 1. Overall prognosis is poor. 2. I agree with conservative management and without any surgical intervention. I do not believe he is a surgical candidate. 3. Continue broad-spectrum antibiotic. He is currently on Zosyn and vancomycin. 4. I did discuss with the patient and family, they are aware of his very poor prognosis. I doubt that he would be a candidate for any further systemic treatment and comfort care/hospice should be highly considered. This issue also should be discussed further with Dr. Garcia. The patient and family will discuss this further with Dr. Garcia next week. Thank you very much for asking me to participate in this nice gentleman. MMODL / IJN: [id number] /
[2018-02-08] MEDS: VANCOMYCIN 1,250 MG in SODIUM CHLORIDE 0.9% 250 ML IVPB SCH ×2 (03:23→20:21)
[2018-02-08 05:12] LABS: Anisocytosis Slight; Basophils % (A) 0 %; Eosinophils # (A) 0.1 k/uL (0-0.7); Eosinophils % (A) 1 %; HCT 34.6 % (39.0-53.0); HGB 10.4 gm/dL (13.0-17.5); Hypochromasia Marked; Lymphocytes % (A) 7 %; MCH 34.3 pg (25.0-35.0); MCHC 30.1 g/dL (31.0-37.0); MCV 113.8 fL (80.0-100.0); Macrocytosis Marked; Mean Platelet Volume 8.3; Monocytes # (A) 1.1 k/uL (0-1.0); Monocytes % (A) 7 %; Neutrophils # (A) 12.1 k/uL (1.3-7.7); Neutrophils % (A) 84 %; Platelet Count 125 k/uL (150-450); RBC 3.04 m/uL (4.30-5.90); RDW 18.9 % (11.5-15.5); WBC 14.4 k/uL (3.8-10.6)
[2018-02-08] MEDS: PIPERACILLIN-TAZOBACTAM 3.375 GM in DEXTROSE/WATER 1 50ML.BAG IVPB SCH ×3 (05:16→23:06)
[2018-02-08] MEDS: SODIUM CHLORIDE 0.9% 1,000 ML IV SCH ×2 (05:20→17:48)
[2018-02-08 05:26] LABS: Calcium 6.8 mg/dL (8.4-10.2)
[2018-02-08 05:32] LABS: Magnesium 2.5 mg/dL (1.6-2.3); Phosphorus 3.3 mg/dL (2.5-4.5); Potassium 5.7 mmol/L (3.5-5.1)
[2018-02-08] MEDS: MORPHINE SULFATE 4 MG/ML SYRINGE IV PRN ×4 (08:35→23:07)
[2018-02-08] MEDS: PANTOPRAZOLE 40 MG/10 ML VIAL IV SCH (08:35)
[2018-02-08] MEDS: NYSTATIN 100,000 UNIT/ML SUSP 500,000 UNIT/5 ML CUP PO SCH ×4 (08:35→23:07)
[2018-02-08] MEDS: FLUCONAZOLE IN NACL,ISO-OSM 100 MG in SALINE 1 50ML.BAG IVPB SCH (08:35)
--- NOTE | 2018-02-08 09:35 | XR ---
EXAMINATION TYPE: XR abdomen 1V DATE OF EXAM: 02/08/2018 COMPARISON: NONE HISTORY: Pain TECHNIQUE: Single supine KUB image of the abdomen is obtained FINDINGS: There is distention of the colon which may reflect colonic ileus. Small bowel appears to be of normal caliber. Scattered intracolonic debris noted. No convincing evidence for pneumoperitoneum. No unusual calcifications. The lung bases are clear. The osseous structures are intact. IMPRESSION: 1. Correlate for colonic ileus.
[2018-02-08] MEDS ORDERED: SODIUM CHLORIDE 0.9% 1,000 ML IV ONE (09:43)
[2018-02-08 10:15] VITALS: BMI 28.8
[2018-02-08] MEDS ORDERED: BISACODYL 10 MG SUPP RECTAL PRN (10:57)
--- NOTE | 2018-02-08 12:25 | US ---
EXAMINATION TYPE: US abdomen limited DATE OF EXAM: 02/08/2018 COMPARISON: NONE CLINICAL HISTORY: assess for fluid. abd distention, abnormal CT, patient has large right sided bandag e for other drainage tubes. Moderate fluid seen within all four quadrants. IMPRESSION: Moderate four-quadrant ascites.
--- NOTE | 2018-02-08 13:10 | P.PN ---
Subjective Progress Note Date: 02/08/18 On 02/09/2008 and the patient is being seen in follow-up. Clinically is the same. He was diagnosed having an E. coli septicemia. The patient is on IV Zosyn. Hemodynamically stable. Abdomen is distended. There are G the J-tubes are connected to dependent drainage. The follow-up abdominal some today shows a colonic ileus. The abdomen is still slightly distended and tympanic. It is nontender. The patient is nothing by mouth for now. He is afebrile. He is being treated also with Diflucan regarding the oropharyngeal thrush. No altered mentation. Pain is under good control. General surgeries on the case. There is no surgical intervention that can be offered to this patient this point in time. The ultrasound of the abdomen was also done and showed moderate amount of ascites in all 4 quadrants of the abdomen. Objective - Vital Signs Vital signs: Vital Signs Temp 97.9 F 02/08/18 08:00 Pulse 82 02/08/18 11:00 Resp 12 02/08/18 11:00 BP 104/68 02/08/18 11:00 Pulse Ox 83 L 02/08/18 11:00 Intake & Output 02/07/18 02/08/18 02/08/18 18:59 06:59 18:59 Intake Total 1650 1525.0 1587.5 Output Total 1150 880 513 Balance 500 645.0 1074.5 Weight 76.4 kg 83.5 kg 83.5 kg Intake: IV 1250 1525.0 1587.5 Fluconazole in NaCl,Iso- 50 Osm 100 mg In Saline 1 50ml.bag @ 50 mls/hr IVPB DAILY [facility] Rx#:[id number] Piperacillin-Tazobactam 3 50 50.0 .375 gm In Dextrose/Water 1 50ml.bag @ 12.5 mls/hr IVPB ONCE STA Rx#: [id number] Piperacillin-Tazobactam 3 25.0 37.5 .375 gm In Dextrose/Water 1 50ml.bag @ 12.5 mls/hr IVPB Q8H [facility] Rx#: [id number] Sodium Chloride 0.9% 1, 1200 1200 1500 000 ml @ 100 mls/hr IV . Q10H [facility] Rx#:[id number] Vancomycin 1,250 mg In 250 Sodium Chloride 0.9% 250 ml @ 125 mls/hr IVPB Q16H [facility] Rx#:[id number] Intake, IV Titration 400 Amount ACETAMINOPHEN IV (For NPO 100 ) 1,000 mg In Empty Bag 1 bag @ 400 mls/hr IVPB Q6HR PRN Rx#:[id number] Fluconazole in NaCl,Iso- 50 Osm 100 mg In Saline 1 50ml.bag @ 50 mls/hr IVPB DAILY [facility] Rx#:[id number] Vancomycin 1,250 mg In 250 Sodium Chloride 0.9% 250 ml @ 125 mls/hr IVPB Q16H [facility] Rx#:[id number] Output: Drainage 1000 325 320 Biliary drain 1 120 G Tube 1000 175 J tube 150 200 Urine 150 555 193 Other: Voiding Method Urinal Urinal Indwelling Catheter - Exam Gen. appearance ill-looking cachectic lethargic yet awake, unchanged compared to yesterday Head exam was generally normal. There was no scleral icterus or corneal arcus. Mucous membranes were moist. The patient has temporal wasting Neck was supple and without jugular venous distension, thyromegaly, or carotid bruits. Carotids were easily palpable bilaterally. There was no adenopathy. Lungs were clear to auscultation and percussion, and with normal diaphragmatic excursion. No wheezes or rales were noted. Cardiac exam revealed the PMI to be normally situated and sized. The rhythm was regular and no extrasystoles were noted during several minutes of auscultation. The first and second heart sounds were normal and physiologic splitting of the second heart sound was noted. There were no murmurs, rubs, clicks, or gallops. Abdomen is distended. Tympanic. No direct tenderness. No rebound tensile guarding. There is a GJ drain which is in place. These are connected to dependent drainage. There is also a biliary drain in place in the right upper quadrant. Extremities are showing +1 pitting edema and there is no cyanosis or clubbing at this point. Neurologically awake and alert that is no focal neurological deficit. Examination of the skin revealed no evidence of significant rashes, suspicious appearing nevi or other concerning lesions. - Labs CBC & Chem 7: 02/08/18 04:08 02/08/18 04:08 Labs: Abnormal Lab Results - Last 24 Hours (Table) 02/08/18 02/08/18 Range/Units 04:08 04:08 WBC 14.4 H (3.8-10.6) k/uL RBC 3.04 L (4.30-5.90) m/uL Hgb 10.4 L (13.0-17.5) gm/dL Hct 34.6 L (39.0-53.0) % MCV 113.8 H (80.0-100.0) fL MCHC 30.1 L (31.0-37.0) g/dL RDW 18.9 H (11.5-15.5) % Plt Count 125 L (150-450) k/uL Neutrophils # 12.1 H (1.3-7.7) k/uL Monocytes # 1.1 H (0-1.0) k/uL Potassium 5.7 H (3.5-5.1) mmol/L Chloride 110 H (98-107) mmol/L Carbon Dioxide 20 L (22-30) mmol/L BUN 39 H (9-20) mg/dL Glucose 116 H (74-99) mg/dL Calcium 6.8 L (8.4-10.2) mg/dL Magnesium 2.5 H (1.6-2.3) mg/dL Microbiology - Last 24 Hours (Table) 02/06/18 17:50 Blood Culture Gram Stain - Final Blood Blood Culture - Final Escherichia coli 02/06/18 21:45 Urine Culture - Preliminary Urine,Voided Assessment and Plan Plan: Assessment 1 acute E. coli septicemia likely of an intra-abdominal source still on Zosyn. Patient is hemodynamically stable on no pressors. 2 metastatic adenocarcinoma of the esophagus details as discussed earlier in my dictation regarding the diagnostic and therapeutic circumstances. The patient has collateral and liver metastases. 3 mass within the liver/hepatic fossa causing obstructive jaundice and the patient has a biliary drain in place 4 ileus/large bowel obstruction and the patient's GJ drain is advanced to dependent suction 5 ascites 6 COPD 7 hypertension 8 hyperlipidemia 9 obstructive sleep apnea 10 BPH 11 oropharyngeal thrush currently on Diflucan 12 COPD Plan Continue IV antibiotics. Stop the vancomycin. Keep the patient nothing by mouth for now. Keep the tubes to dependent drainage. Monitor the output from the bili drain. We'll continue to follow. Prognosis poor. They be a good candidate for hospice/palliative care. We'll be awaiting further discussion with the family and oncology.
--- NOTE | 2018-02-08 13:22 | CONS ---
History of Present Illness Consult date: 02/07/18 Chief complaint: Generalized weakness, debility, tachycardia and hypotGram- negative sepsis History of present illness: 77-year-old male patient with diagnosis of metastatic adenocarcinoma of the esophagus treated at the [facility] in [place] with a combination of chemoradiation therapy. He initially started having symptoms in June 2017 when he developed dysphagia and weight loss. EGD back then showed a distal esophageal mass with stricture. The patient underwent dilatation and the biopsy confirmed the presence of adenocarcinoma. HER-2 was negative by fish. Colonoscopy showed diverticulosis, internal hemorrhoids, 4 mm benign tubular adenoma that was removed. CAT scan of the abdomen back then showed diffuse thickening of the mid in the distal esophagus lymphadenopathy largest measuring 1.5 x 2 cm size and the precarinal area another 1.5 cm in the right hilar area. PET scan showed multiple liver metastases and destructive lesion in the left transverse processes of C7 and left fifth rib involvement and T9 and L1 involvement as well as uptake within the mediastinal lymph nodes. The patient started FOLFOX systemic chemotherapy. Due to side effects and mouth sores and weight loss after 1 cycle, the dose was reduced by around 15% of the second cycle. He tolerated the regimen and after 3 cycles developed dysphagia again and he required further dilatation of the esophageal stricture and PEG tube placement. If subsequent PET scan on 09/15/2017 showed a mixed response with some improvement in the primary site in the ribs and vertebral a. However he developed new disease at C2 as well as progression in size and the number of multiple hepatic metastases. For reference, the largest location of the gallbladder fossa measured 4.5 x 4.2 x 4 cm in size with an SUV of 7.8. This area previously measured 2.6 cm in size. He received palliative radiation therapy to C7 spine and he had no major improvement in his left arm pain. He was referred to the [facility] and had a liver biopsy for biomarker testing. Following that his regimen was changed to follow FOLFIR and he he started that on 11/04/2017. He was admitted to the hospital after 2 cycles because of neutropenic fever. He received Neupogen and he was also given Xgeva for bone metastases. On 01/05/2018, he came in to [facility] because of obstructive jaundice. CAT scan of the abdomen and pelvis showed hepatobiliary obstruction. He was planned to have ERCP and biliary stent on 01/2018 however the procedure was not successful. Subsequently was transferred to [facility] and a CAT and a hepatic drainage tube was inserted. The PEG tube was removed and the patient was given a J-tube. Note that during the last hospital physician [facility], palliative care was discussed with the patient. The patient was very much convinced at one point that he wanted palliative hospice care. After meeting with Dr. WALL locally, and we'll decide to give him 1 further cycle of systemic chemotherapy and he wanted to continue on. Yesterday came into the emergency department with symptoms of abdominal pain, nausea, elevated heart rate, low blood pressure and fever. He had some mild abdominal distention. He was extremely fatigued. On admission he was tachycardic with a heart rate in the 130s to 140s. Systolic blood pressure was in the mid 90s. His urine output was also low. His white cell count was at 13.3. The lactic acid level was at 3.0. CAT scan of the abdomen was repeated in the emergency department and the CAT scan showed that there is some minimal right-sided pleural effusion. Small left-sided pleural effusion. PEG tube was removed and the patient had a J-tube in place. The patient had a liver that was heterogeneous in appearance. Drainage catheter was present in the liver area and there was a large hypodensity within the liver that was present also previously. That area glands were within normal. Pancreas and spleen were within normal. There was dilatation of the small and large bowel with air- fluid loops and suspicious area of obstruction at the level of the splenic f flexures. The patient was given IV fluids. He was given IV Zosyn. Blood cultures showing gram-negative bacillus and further cultures and identification still pending. The J-tube is in place to dependent drainage and output was 400 mL. The hepatic drain is producing approximately minimal amount of greenish material. Note that the patient also has moderate degree of ascites within the abdominal CAT scan. He is awake. He is following commands and answering questions appropriately. No emesis. No signs of any acute respiratory distress at this point in time. Review of Systems Constitutional: Reports chronic pain, Reports daytime sleepiness, Reports fatigue, Reports lethargy, Reports malaise, Reports poor appetite, Reports weakness, Reports weight loss Eyes: denies blurred vision, denies bulging eye, denies decreased vision Ears: deny: decreased hearing, ear discharge, earache, tinnitus Ears, nose, mouth and throat: Reports dysphagia Cardiovascular: Reports decreased exercise tolerance, Reports dyspnea on exertion, Reports shortness of breath Respiratory: Reports cough, Reports dyspnea Gastrointestinal: Reports abdominal pain, Reports loss of appetite, Reports nausea Genitourinary: Reports as per HPI Musculoskeletal: Reports arm numbness/tingling, Reports low back pain Musculoskeletal: bilateral: ankle swelling, absent: ankle pain, ankle stiffness Integumentary: Denies pruritus, Denies rash Neurological: Reports gait dysfunction, Reports numbness, Reports weakness Psychiatric: Reports anxiety, Reports depression Endocrine: Reports fatigue Hematologic/Lymphatic: Reports as per HPI Allergic/Immunologic: Reports as per HPI Past Medical History Past Medical History: Cancer, COPD, Hyperlipidemia, Hypertension, Osteoarthritis (OA), Pneumonia, Prostate Disorder, Sleep Apnea/CPAP/BIPAP Additional Past Medical History / Comment(s): Metastatic esophageal adenocarcinoma details discussed above, hypertension, hyperlipidemia, osteoarthritis, obstructive sleep apnea, BPH History of Any Multi-Drug Resistant Organisms: None Reported Past Surgical History: Hernia Repair, Orthopedic Surgery Additional Past Surgical History / Comment(s): VASECTOMY.rt knee arthroscopy, rt eye cataract. egd/dilations/bx, peg tube Past Anesthesia/Blood Transfusion Reactions: No Reported Reaction Past Psychological History: Anxiety, Depression Smoking Status: Former smoker Past Alcohol Use History: None Reported Past Drug Use History: None Reported - Past Family History Mother Family Medical History: Coronary Artery Disease (CAD), Dementia Additional Family Medical History / Comment(s): "heart disease" Father Additional Family Medical History / Comment(s): "heart disease" Medications and Allergies Home Medications Medication Instructions Recorded Confirmed Type Albuterol Sulfate [Proair Hfa] 1 puff INHALATION RT-DAILY 12/28/17 02/06/18 History Fluticasone/Salmeterol [Advair 1 puff INHALATION RT-BID 12/28/17 02/06/18 History 250-50 Diskus] Morphine Sulfate ER [Ms Contin] 30 mg PO Q12HR PRN 12/28/17 02/06/18 History Prochlorperazine [Compazine] 10 mg PO QID PRN 12/28/17 02/06/18 History Temazepam [Restoril] 15 mg PO HS 12/28/17 02/06/18 History Tiotropium Cotton [Spiriva 1 puff INHALATION RT-DAILY 12/28/17 02/06/18 History Respimat] Ipratropium-Albuterol Nebulize 3 ml INHALATION RT-BID 01/05/18 02/06/18 History [Duoneb 0.5 mg-3 mg/3 ml Soln] Lidocaine-Prilocaine Cream [Emla 1 applic TOPICAL DAILY PRN 01/05/18 02/06/18 History Cream 2.5%/2.5%] oxyCODONE ER [OxyCONTIN] 10 mg PO BID PRN 01/05/18 02/06/18 History Sennosides-Docusate Sodium 1 tab PO DAILY 02/06/18 02/06/18 History [Senokot-S] Terazosin HCl 1 mg PO HS 02/06/18 02/06/18 History Allergies Allergy/AdvReac Type Severity Reaction Status Date / Time No Known Allergies Allergy Verified 01/30/18 13:20 Physical Exam Gen. appearance ill-looking cachectic male patient nonacute distress awake and follows commands and answers questions. Head exam was generally normal. There was no scleral icterus or corneal arcus. Mucous membranes were moist. Neck was supple and without jugular venous distension, thyromegaly, or carotid bruits. Carotids were easily palpable bilaterally. There was no adenopathy. Lungs were clear to auscultation and percussion, and with normal diaphragmatic excursion. No wheezes or rales were noted. Cardiac exam revealed the PMI to be normally situated and sized. The rhythm was regular and no extrasystoles were noted during several minutes of auscultation. The first and second heart sounds were normal and physiologic splitting of the second heart sound was noted. There were no murmurs, rubs, clicks, or gallops. Abdomen is distended. There is a fluid wave. There is a drainage catheter in his right upper quadrant area. Is also J-tube in place which is dependent suction. No significant tenderness, no rebound tenderness or guarding. Examination of the extremities revealed easily palpable radial, femoral and pedal pulses. There was no cyanosis, clubbing or edema. Examination of the skin revealed no evidence of significant rashes, suspicious appearing nevi or other concerning lesions. Neurologically awake. Profoundly weak and lethargic. Moving all 4 extremities and there is no focal neurological deficit this point. Assessment and Plan Plan: Assessment 1 acute gram-negative sepsis, likely of a intra-abdominal source. Patient is currently on IV Zosyn. Resuscitated IV fluids. No pressors at this point in time and the patient's urine output and the blood pressure and the rest of the hemodynamics improved 2 metastatic adenocarcinoma of the esophagus post systemic chemotherapy. The patient has metastases to the liver and skeletal system as mentioned 3 liver mass with obstructive jaundice with possibility of a abscess. Patient has a biliary/hepatic drain in place inserted [facility] 4 suspected bowel obstruction 5 GJ-tube for enteral feeding 6 ascites 7 skeletal metastases 8 COPD 9 hypertension 10 hyperlipidemia 11 BPH 13 obstructive sleep apnea 14 oropharyngeal thrush Plan Continue IV fluids. Continue IV Zosyn. Awaiting final cultures and sensitivities. Keep the patient nothing by mouth and put the GJ tube for dependent drainage. Abdomen is less distended this point in time. Monitor the output from the biliary drain. Oncology evaluation. Start Diflucan regarding his oropharyngeal thrush. Prognosis extremely poor. Consider palliative care/ hospice. Found this will be made after an oncologic evaluation. MTDD
--- NOTE | 2018-02-08 14:31 | P.PN ---
Subjective Progress Note Date: 02/08/18 This is 77 years old male with past medical history significant for esophageal cancer with liver metastasis presents to the hospital with abdominal pain and intractable vomiting. Initial evaluation in the emergency revealed possible ileus versus small bowel obstruction patient kept nothing by mouth treated symptomatically and his PEG tube was placed to dependent drainage. Patient currently feels improved with less nausea and less abdominal pain and stated he is at least like 50% improved since yesterday. Patient reported severe constipation and stated that it's been 5 days without bowel movement but he still passing gas. Patient reported significant declining in his appetite and subjective weight loss. Daughter at the bedside who brought him to the hospital and stated that he's been declining steadily since his last chemo 5 weeks ago but decided with his oncologist to continue another round of chemo before given up. Patient recently received new J-tube placed and to hepatic drains placed to his right upper quadrant due to biliary obstruction and has been draining green material without any difficulty. Currently his dependent drainage bag is filled with a green was some brownish material. 02/08: Patient has been seen by Dr. Martinez and patient is not a surgical candidate due to his poor prognosis and stage IV cancer. No plan for any surgical intervention at this time. 2 feedings to be trialed through the J- tube keeping the G-tube dependent drainage. Also noted the patient may benefit from suppositories and/or enemas. Patient did receive suppository yesterday and only had very small amount of bowel movement. He does have abdominal bloating and apparently Dr. Garcia is ordered a paracentesis for today which he was to have outpatient. He has had decreased output from the drains on the right side. For antimicrobials, patient is on fluconazole, Zosyn and vancomycin. Patient is also followed by Dr. Chin for intensive care management. Objective - Vital Signs Vital signs: Vital Signs Temp 97.9 F 02/08/18 08:00 Pulse 82 02/08/18 11:00 Resp 12 02/08/18 11:00 BP 104/68 02/08/18 11:00 Pulse Ox 83 L 02/08/18 11:00 Intake & Output 02/07/18 02/08/18 02/08/18 18:59 06:59 18:59 Intake Total 1650 1525.0 975.0 Output Total 1150 880 358 Balance 500 645.0 617.0 Weight 76.4 kg 83.5 kg 83.5 kg Intake: IV 1250 1525.0 975.0 Fluconazole in NaCl,Iso- 50 Osm 100 mg In Saline 1 50ml.bag @ 50 mls/hr IVPB DAILY [facility] Rx#:[id number] Piperacillin-Tazobactam 3 50 50.0 .375 gm In Dextrose/Water 1 50ml.bag @ 12.5 mls/hr IVPB ONCE STA Rx#: [id number] Piperacillin-Tazobactam 3 25.0 25.0 .375 gm In Dextrose/Water 1 50ml.bag @ 12.5 mls/hr IVPB Q8H [facility] Rx#: [id number] Sodium Chloride 0.9% 1, 1200 1200 900 000 ml @ 100 mls/hr IV . Q10H [facility] Rx#:[id number] Vancomycin 1,250 mg In 250 Sodium Chloride 0.9% 250 ml @ 125 mls/hr IVPB Q16H [facility] Rx#:[id number] Intake, IV Titration 400 Amount ACETAMINOPHEN IV (For NPO 100 ) 1,000 mg In Empty Bag 1 bag @ 400 mls/hr IVPB Q6HR [facility] Rx#:[id number] Fluconazole in NaCl,Iso- 50 Osm 100 mg In Saline 1 50ml.bag @ 50 mls/hr IVPB DAILY [facility] Rx#:[id number] Vancomycin 1,250 mg In 250 Sodium Chloride 0.9% 250 ml @ 125 mls/hr IVPB Q16H [facility] Rx#:[id number] Output: Drainage 1000 325 220 Biliary drain 1 120 G Tube 1000 175 J tube 150 100 Urine 150 555 138 Other: Voiding Method Urinal Urinal Indwelling Catheter - Exam Gen.: in stated age, no acute distress Heart: Normal S1-S2 Lungs: Clear to auscultation bilaterally Abdomen: Soft, positive for generalized tenderness without guarding or rebound, positive for hypoactive bowel sounds, positive for mid abdomen J tube in place, positive for right upper quadrant to percutaneous drainage in place with greenish colored material. Skin: No new rash Psych: Alert and oriented 3 Neuro: No focal deficit - Labs CBC & Chem 7: 02/08/18 04:08 02/08/18 04:08 Labs: Abnormal Lab Results - Last 24 Hours (Table) 02/08/18 02/08/18 Range/Units 04:08 04:08 WBC 14.4 H (3.8-10.6) k/uL RBC 3.04 L (4.30-5.90) m/uL Hgb 10.4 L (13.0-17.5) gm/dL Hct 34.6 L (39.0-53.0) % MCV 113.8 H (80.0-100.0) fL MCHC 30.1 L (31.0-37.0) g/dL RDW 18.9 H (11.5-15.5) % Plt Count 125 L (150-450) k/uL Neutrophils # 12.1 H (1.3-7.7) k/uL Monocytes # 1.1 H (0-1.0) k/uL Potassium 5.7 H (3.5-5.1) mmol/L Chloride 110 H (98-107) mmol/L Carbon Dioxide 20 L (22-30) mmol/L BUN 39 H (9-20) mg/dL Glucose 116 H (74-99) mg/dL Calcium 6.8 L (8.4-10.2) mg/dL Magnesium 2.5 H (1.6-2.3) mg/dL Microbiology - Last 24 Hours (Table) 02/06/18 17:50 Blood Culture Gram Stain - Final Blood Blood Culture - Final Escherichia coli 02/06/18 21:45 Urine Culture - Preliminary Urine,Voided Assessment and Plan Plan: 1. Acute E. coli septicemia from a abdominal source.. Continue Zosyn and vancomycin. 2. Esophageal cancer with liver metastasis. 3. Small bowel obstruction. Patient is nothing by mouth. 4. Severe protein calorie malnutrition with weight loss Status post PEG tube placement. 5. Mass within the liver causing obstructive jaundice Status post dual percutaneous biliary tube placements. 6. Ascites with plan for therapeutic paracentesis. 7. Obstructive sleep apnea. 8. Benign prostatic hypertrophy with Fish catheter in place. 9. Mild leukocytosis. 10. Anemia of chronic disease. 11. Asymptomatic bacteriuria. 12. Chronic pain syndrome. 13. Chronic constipation. Prognosis poor Impression and plan of care have been directed as dictated by the signing physician. Nikole Cisneros nurse practitioner acting as scribe for signing physician.
--- NOTE | 2018-02-08 14:59 | P.PN ---
Subjective Progress Note Date: 02/08/18 Principal diagnosis: hypotension Patient seen today in follow-up. His distended abdomen is bothersome when he tries to ambulate, he is weak in the legs, no vomiting, poor appetite, early satiety, only one very small BM. Patient has not started palliative chemotherapy. Objective - Vital Signs Vital signs: Vital Signs Temp 97.4 F L 02/08/18 12:00 Pulse 82 02/08/18 14:00 Resp 18 02/08/18 14:00 BP 110/72 02/08/18 14:00 Pulse Ox 96 02/08/18 14:00 Intake & Output 02/07/18 02/08/18 02/08/18 18:59 06:59 18:59 Intake Total 1650 1525.0 1587.5 Output Total 1150 880 513 Balance 500 645.0 1074.5 Weight 76.4 kg 83.5 kg 83.5 kg Intake: IV 1250 1525.0 1587.5 Fluconazole in NaCl,Iso- 50 Osm 100 mg In Saline 1 50ml.bag @ 50 mls/hr IVPB DAILY [facility] Rx#:[id number] Piperacillin-Tazobactam 3 50 50.0 .375 gm In Dextrose/Water 1 50ml.bag @ 12.5 mls/hr IVPB [facility]CE [facility] Rx#: [id number] Piperacillin-Tazobactam 3 25.0 37.5 .375 gm In Dextrose/Water 1 50ml.bag @ 12.5 mls/hr IVPB Q8H [facility] Rx#: [id number] Sodium Chloride 0.9% 1, 1200 1200 1500 000 ml @ 100 mls/hr IV . Q10H [facility] Rx#:[id number] Vancomycin 1,250 mg In 250 Sodium Chloride 0.9% 250 ml @ 125 mls/hr IVPB Q16H [facility] Rx#:[id number] Intake, IV Titration 400 Amount ACETAMINOPHEN IV (For NPO 100 ) 1,000 mg In Empty Bag 1 bag @ 400 mls/hr IVPB Q6HR [facility] Rx#:[id number] Fluconazole in NaCl,Iso- 50 Osm 100 mg In Saline 1 50ml.bag @ 50 mls/hr IVPB DAILY [facility] Rx#:[id number] Vancomycin 1,250 mg In 250 Sodium Chloride 0.9% 250 ml @ 125 mls/hr IVPB Q16H [facility] Rx#:[id number] Output: Drainage 1000 325 320 Biliary drain 1 120 G Tube 1000 175 J tube 150 200 Urine 150 555 193 Other: Voiding Method Urinal Urinal Indwelling Catheter - Constitutional General appearance: Present: cooperative, no acute distress, thin - EENT Eyes: Present: anicteric sclerae - Respiratory Respiratory: bilateral: CTA, diminished - Cardiovascular Heart sounds: normal: S1, S2 - Peripheral edema leg Peripheral Edema: bilateral: Trace - Gastrointestinal Gastrointestinal Comment(s): 2 biliary drains on the right upper quadrant, GJ tube midline General gastrointestinal: Present: distended, tenderness - Neurologic Neurologic: Present: CNII-XII intact - Musculoskeletal Musculoskeletal: Present: generalized weakness, strength equal bilaterally - Psychiatric Psychiatric: Present: A&O x's 3, appropriate affect, intact judgment & insight - Labs CBC & Chem 7: 02/08/18 04:08 02/08/18 04:08 Labs: Abnormal Lab Results - Last 24 Hours (Table) 02/08/18 02/08/18 Range/Units 04:08 04:08 WBC 14.4 H (3.8-10.6) k/uL RBC 3.04 L (4.30-5.90) m/uL Hgb 10.4 L (13.0-17.5) gm/dL Hct 34.6 L (39.0-53.0) % MCV 113.8 H (80.0-100.0) fL MCHC 30.1 L (31.0-37.0) g/dL RDW 18.9 H (11.5-15.5) % Plt Count 125 L (150-450) k/uL Neutrophils # 12.1 H (1.3-7.7) k/uL Monocytes # 1.1 H (0-1.0) k/uL Potassium 5.7 H (3.5-5.1) mmol/L Chloride 110 H (98-107) mmol/L Carbon Dioxide 20 L (22-30) mmol/L BUN 39 H (9-20) mg/dL Glucose 116 H (74-99) mg/dL Calcium 6.8 L (8.4-10.2) mg/dL Magnesium 2.5 H (1.6-2.3) mg/dL Microbiology - Last 24 Hours (Table) 02/06/18 17:50 Blood Culture Gram Stain - Final Blood Blood Culture - Final Escherichia coli Assessment and Plan (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 Dr. Garcia had discussed hospice when patient was given diagnosis and prognosis in the office recently. Patient opted to try chemotherapy. Based on patient's hospital course and preference, further treatment plans will be determined Current Visit: Yes Status: Acute Priority: High Code(s): C79.9 - SECONDARY MALIGNANT NEOPLASM OF UNSPECIFIED SITE; C15.9 - MALIGNANT NEOPLASM OF ESOPHAGUS, UNSPECIFIED SNOMED Code(s): 235569605 (2) Gastric outlet obstruction Narrative/Plan: G J-tube in place. I believe this is being used for decompression and feeding. Patient is not able to tolerate anything by mouth. Liver mass is likely extrinsically compressing GI tract, also suspect tumor in the area. Current Visit: Yes Status: Acute Priority: High Code(s): K31.1 - ADULT HYPERTROPHIC PYLORIC STENOSIS SNOMED Code(s): 484333361 (3) Distended abdomen Narrative/Plan: Patient did have some leakage of fluid around the 2 biliary drains. Have requested Interventional Radiology evaluation of patient. If ascites present they will provide patient with palliative paracentesis. Fluid will be sent for cytology. Current Visit: Yes Status: Acute Priority: High Code(s): R14.0 - ABDOMINAL DISTENSION (GASEOUS) SNOMED Code(s): 49326412 Plan: Doctor attests:I have performed a history and physical exam of this pt, discussed with dictator. I agree with dictated note, documented as a scribe.
[2018-02-09] MEDS: MORPHINE SULFATE 4 MG/ML SYRINGE IV PRN ×3 (04:48→19:05)
[2018-02-09] MEDS: PIPERACILLIN-TAZOBACTAM 3.375 GM in DEXTROSE/WATER 1 50ML.BAG IVPB SCH ×3 (06:24→22:50)
--- NOTE | 2018-02-09 08:02 | US ---
EXAMINATION TYPE: US paracentesis abd w/image DATE OF EXAM: 02/08/2018 COMPARISON: Ultrasound abdomen 02/08/2018 HISTORY: Ascites. PROCEDURE: Maximal barrier technique was utilized. The skin overlying a suitable pocket of fluid was localized with ultrasound and the overlying skin was prepped and draped. Ultrasound was utilized with sterile technique. Lidocaine was used for local anesthesia and a skin lynne made with a scalpel. Catheter was advanced under direct ultrasound guidance into a suitable pocket of fluid and approximately 3.3 liter s of serous fluid were removed. Catheter was withdrawn and hemostasis achieved. There is no immedia te complication; the patient is discharged in stable condition. IMPRESSION: STATUS POST ULTRASOUND GUIDED PARACENTESIS FOR PALLIATION OF ASCITES. THIS PROCEDURE WA S PERFORMED BY THE UNDERSIGNED. Specimen submitted for laboratory analysis.
--- NOTE | 2018-02-09 10:11 | P.PN ---
Subjective Progress Note Date: 02/09/18 Principal diagnosis: hypotension Pt seen in f/u, he is s/p 3.3L ascitic fluid removal, cytology pending. Pt abd feels less distended, no fever, nausea, he still has not had a BM. Objective - Vital Signs Vital signs: Vital Signs Temp 97.3 F L 02/09/18 06:16 Pulse 96 02/09/18 06:16 Resp 16 02/09/18 06:16 BP 110/64 02/09/18 06:16 Pulse Ox 98 02/09/18 06:16 Intake & Output 02/08/18 02/09/18 02/09/18 18:59 06:59 18:59 Intake Total 1700.0 1565 Output Total 443 4950 Balance 1257.0 -3385 Weight 83.5 kg Intake: IV 1700.0 1325 Fluconazole in NaCl,Iso- 50 Osm 100 mg In Saline 1 50ml.bag @ 50 mls/hr IVPB DAILY [facility] Rx#:[id number] Piperacillin-Tazobactam 3 50.0 25 .375 gm In Dextrose/Water 1 50ml.bag @ 12.5 mls/hr IVPB Q8H [facility] Rx#: [id number] Sodium Chloride 0.9% 1, 1600 1300 000 ml @ 100 mls/hr IV . Q10H [facility] Rx#:[id number] Oral 240 Output: Drainage 220 500 Biliary drain 1 120 50 Biliary drain 2 50 G Tube 200 J tube 100 200 Urine 223 550 Uretheral (Fish) 400 Other 3900 Other: Voiding Method Indwelling Catheter Indwelling Catheter - Constitutional General appearance: Present: cooperative, no acute distress, thin - EENT EENT Comment(s): dry mucus membranes Eyes: Present: anicteric sclerae ENT: Present: thrush - Respiratory Respiratory: bilateral: CTA - Cardiovascular Rhythm: regular - Peripheral edema leg Peripheral Edema: bilateral: None - Gastrointestinal General gastrointestinal: Present: decreased bowel sounds, distended, soft - Integumentary Integumentary: Present: pale - Neurologic Neurologic: Present: CNII-XII intact - Musculoskeletal Musculoskeletal: Present: generalized weakness - Psychiatric Psychiatric: Present: A&O x's 3, appropriate affect, intact judgment & insight - Labs CBC & Chem 7: 02/08/18 04:08 09/10/18 04:08 Labs: Microbiology - Last 24 Hours (Table) 02/06/18 21:45 Urine Culture - Final Urine,Voided Grisel albicans 02/06/18 17:50 Blood Culture Gram Stain - Final Blood Blood Culture - Final Escherichia coli - Imaging and Cardiology US - abdomen: report reviewed Assessment and Plan (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 Infections need to be cleared before treatment can start. Family wants pt be a little stronger before starting chemo too. Pt and family will decide when they feel pt has recuperated enough and f/u with Dr. Garcia to begin palliative treatment. Current Visit: Yes Status: Acute Priority: High Code(s): C79.9 - SECONDARY MALIGNANT NEOPLASM OF UNSPECIFIED SITE; C15.9 - MALIGNANT NEOPLASM OF ESOPHAGUS, UNSPECIFIED SNOMED Code(s): 953930291 (2) Gastric outlet obstruction Narrative/Plan: G-J tube in place, 2 biliary drains, s/p 3.3 L ascitic fluid removed with improvement in output from drains and pt feels urge for BM. Maintain drains, PO intake as tolerated (small amts of liquid, ice). Current Visit: Yes Status: Acute Priority: High Code(s): K31.1 - ADULT HYPERTROPHIC PYLORIC STENOSIS SNOMED Code(s): 994151891 (3) Distended abdomen Narrative/Plan: Multifactorial including gastric outlet obs, malignancy and ascites. Improved after paracentesis. Cont to monitor Current Visit: Yes Status: Acute Priority: High Code(s): R14.0 - ABDOMINAL DISTENSION (GASEOUS) SNOMED Code(s): 43301721 (4) Physical debility Narrative/Plan: Due to malignancy, altered oral intake, weakness and discomfort, pt out of bed < 50% of a day. Recommended assistive devices including pressure relieving mattress, walker and commode or toilet seat lift. Current Visit: Yes Status: Acute Priority: High Code(s): R53.81 - OTHER MALAISE SNOMED Code(s): 76034195
--- NOTE | 2018-02-09 10:25 | P.PN ---
Subjective Progress Note Date: 02/08/18 Patient with no acute events overnight. He denies NV he had a small BM with suppository. Passing gas. Significant output from G tube, less from J tube. Objective - Vital Signs Vital signs: Vital Signs Temp 97.3 F L 02/09/18 06:16 Pulse 96 02/09/18 06:16 Resp 16 02/09/18 06:16 BP 110/64 02/09/18 06:16 Pulse Ox 98 02/09/18 06:16 Intake & Output 02/08/18 02/09/18 02/09/18 18:59 06:59 18:59 Intake Total 1700.0 1565 Output Total 443 4950 Balance 1257.0 -3385 Weight 83.5 kg Intake: IV 1700.0 1325 Fluconazole in NaCl,Iso- 50 Osm 100 mg In Saline 1 50ml.bag @ 50 mls/hr IVPB DAILY [facility] Rx#:[id number] Piperacillin-Tazobactam 3 50.0 25 .375 gm In Dextrose/Water 1 50ml.bag @ 12.5 mls/hr IVPB Q8H [facility] Rx#: [id number] Sodium Chloride 0.9% 1, 1600 1300 000 ml @ 100 mls/hr IV . Q10H [facility] Rx#:[id number] Oral 240 Output: Drainage 220 500 Biliary drain 1 120 50 Biliary drain 2 50 G Tube 200 J tube 100 200 Urine 223 550 Uretheral (Fish) 400 Other 3900 Other: Voiding Method Indwelling Catheter Indwelling Catheter - Constitutional General appearance: Present: cooperative - Respiratory Details: nonlabored - Cardiovascular Rhythm: regular - Gastrointestinal Gastrointestinal Comment(s): soft, nontender, distended - Psychiatric Psychiatric: Present: A&O x's 3 - Labs CBC & Chem 7: 02/08/18 04:08 02/08/18 04:08 Labs: Microbiology - Last 24 Hours (Table) 02/06/18 21:45 Urine Culture - Final Urine,Voided Grisel albicans 02/06/18 17:50 Blood Culture Gram Stain - Final Blood Blood Culture - Final Escherichia coli Assessment and Plan Assessment: Stage IV esophageal cancer, biliary obstruction s/p PTC drain, ileus vs sbo Plan: Patient is passing gas and having small BM. Trial of trickle feeds through J tube leaving the G-tube to dependant drainage is ok from surgical standpoint. If patient does not tolerate this both tubes can be placed back to dependant drainage.
[2018-02-09] MEDS ORDERED: VANCOMYCIN TROUGH DUE 1 EACH MISC MISCELLANE ONE (11:00)
--- NOTE | 2018-02-09 11:03 | P.PN ---
Subjective Progress Note Date: 02/09/18 Patient with no acute events overnight. He denies NV he had a small BM with suppository. Passing gas. Clear output from G tude, bilious from J. 3 liters from paracentesis yesterday patient is feeling much better Objective - Vital Signs Vital signs: Vital Signs Temp 97.3 F L 02/09/18 06:16 Pulse 96 02/09/18 06:16 Resp 16 02/09/18 06:16 BP 110/64 02/09/18 06:16 Pulse Ox 98 02/09/18 06:16 Intake & Output 02/08/18 02/09/18 02/09/18 18:59 06:59 18:59 Intake Total 1700.0 1565 Output Total 443 4950 Balance 1257.0 -3385 Weight 83.5 kg Intake: IV 1700.0 1325 Fluconazole in NaCl,Iso- 50 Osm 100 mg In Saline 1 50ml.bag @ 50 mls/hr IVPB DAILY [facility] Rx#:[id number] Piperacillin-Tazobactam 3 50.0 25 .375 gm In Dextrose/Water 1 50ml.bag @ 12.5 mls/hr IVPB Q8H [facility] Rx#: [id number] Sodium Chloride 0.9% 1, 1600 1300 000 ml @ 100 mls/hr IV . Q10H [facility] Rx#:[id number] Oral 240 Output: Drainage 220 500 Biliary drain 1 120 50 Biliary drain 2 50 G Tube 200 J tube 100 200 Urine 223 550 Uretheral (Fish) 400 Other 3900 Other: Voiding Method Indwelling Catheter Indwelling Catheter - Constitutional General appearance: Present: cooperative - Respiratory Details: nonlabored - Cardiovascular Rhythm: regular - Gastrointestinal Gastrointestinal Comment(s): Soft, less distended, nontender - Psychiatric Psychiatric: Present: A&O x's 3 - Labs CBC & Chem 7: 02/08/18 04:08 02/08/18 04:08 Labs: Microbiology - Last 24 Hours (Table) 02/06/18 21:45 Urine Culture - Final Urine,Voided Grisel albicans 02/06/18 17:50 Blood Culture Gram Stain - Final Blood Blood Culture - Final Escherichia coli Assessment and Plan Assessment: Stage IV esophageal cancer, biliary obstruction s/p PTC drain, ileus vs sbo resolving, gastric outlet obstruction likely secondary to compression from liver mets Plan: Patient is passing gas and having small BM. Trial of trickle feeds through J tube leaving the G-tube to dependant drainage is ok from surgical standpoint. He may have sips of clears as tolerated for comfort
[2018-02-09] MEDS: NYSTATIN 100,000 UNIT/ML SUSP 500,000 UNIT/5 ML CUP PO SCH ×4 (11:18→22:50)
[2018-02-09 11:39] LABS: Anisocytosis Slight; Basophils % (A) 0 %; Eosinophils # (A) 0.1 k/uL (0-0.7); Eosinophils % (A) 1 %; HCT 31.8 % (39.0-53.0); Hypochromasia Marked; Lymphocytes # (A) 0.9 k/uL (1.0-4.8); Lymphocytes % (A) 6 %; MCH 35.2 pg (25.0-35.0); MCHC 31.5 g/dL (31.0-37.0); MCV 111.7 fL (80.0-100.0); Macrocytosis Marked; Mean Platelet Volume 7.7; Monocytes # (A) 0.9 k/uL (0-1.0); Monocytes % (A) 7 %; Neutrophils # (A) 11.5 k/uL (1.3-7.7); Neutrophils % (A) 85 %; Platelet Count 145 k/uL (150-450); RBC 2.84 m/uL (4.30-5.90); RDW 18.9 % (11.5-15.5); WBC 13.5 k/uL (3.8-10.6)
[2018-02-09] MEDS: PANTOPRAZOLE 40 MG/10 ML VIAL IV SCH (11:39)
[2018-02-09] MEDS: SODIUM CHLORIDE 0.9% 1,000 ML IV SCH ×2 (11:39→14:59)
[2018-02-09] MEDS: POLYETHYLENE GLYCOL 3350 17 GM POWD.PACK PO SCH (11:39)
[2018-02-09] MEDS: SENNOSIDES 8.6 MG TAB PO SCH ×2 (11:40→21:58)
[2018-02-09] MEDS: FLUCONAZOLE IN NACL,ISO-OSM 100 MG in SALINE 1 50ML.BAG IVPB SCH (11:45)
[2018-02-09 11:52] LABS: ALT 105 U/L (21-72); AST 77 U/L (17-59); Alkaline Phosphatase 258 U/L (38-126); Anion Gap 5 mmol/L; Blood Urea Nitrogen 36 mg/dL (9-20); Carbon Dioxide 23 mmol/L (22-30); Chloride 111 mmol/L (98-107); Glucose 99 mg/dL (74-99); Magnesium 2.6 mg/dL (1.6-2.3); Phosphorus 2.4 mg/dL (2.5-4.5); Potassium 4.6 mmol/L (3.5-5.1); Sodium 139 mmol/L (137-145); Total Bilirubin 2.1 mg/dL (0.2-1.3); Total Protein 4.8 g/dL (6.3-8.2)
[2018-02-09 12:07] LABS: Calcium 6.4 mg/dL (8.4-10.2)
[2018-02-09] MEDS: ONDANSETRON 4 MG/2 ML VIAL IVP PRN (12:16)
--- NOTE | 2018-02-09 12:37 | P.PN ---
Subjective Progress Note Date: 02/09/18 Principal diagnosis: Acute E. 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 Clinically is the same. He was diagnosed having an E. coli septicemia. The patient is on IV Zosyn. Hemodynamically stable. Abdomen is distended. There are G the J-tubes are connected to dependent drainage. The follow-up abdominal some today shows a colonic ileus. The abdomen is still slightly distended and tympanic. It is nontender. The patient is nothing by mouth for now. He is afebrile. He is being treated also with Diflucan regarding the oropharyngeal thrush. No altered mentation. Pain is under good control. General surgeries on the case. There is no surgical intervention that can be offered to this patient this point in time. The ultrasound of the abdomen was also done and showed moderate amount of ascites in all 4 quadrants of the abdomen. On 02/09/2018 patient seen in follow-up on oncology floor. He underwent paracentesis yesterday with removal of 3 L of ascitic fluid. Abdomen less distended, patient is breathing better today. Pulse ox on 2 L per nasal cannula was 95%, patient is afebrile, blood pressure is 105/66. Patient remains on Diflucan, Zosyn and vancomycin, E. coli septicemia, and Grisel albicans in the urine. G-tube output in last 24 hours a cold 1175 ML, J-tube was 150, and 50 ML out of the biliary drain. Per general surgery, patient will be initiated on tube feedings. Patient had a small BM with suppository, denies any nausea or vomiting. He is passing gas. Lung sounds are positive for bibasilar crackles. Patient's family would like to continue supportive treatment, not ready for palliative treatment. Discharge planning is for subacute rehab placement when the patient is medically cleared. Objective - Vital Signs Vital signs: Vital Signs Temp 98.0 F 02/09/18 12:16 Pulse 92 02/09/18 12:16 Resp 21 02/09/18 12:16 BP 105/66 02/09/18 12:16 Pulse Ox 95 02/09/18 12:16 Intake & Output 02/08/18 02/09/18 02/09/18 18:59 06:59 18:59 Intake Total 1700.0 1565 Output Total 443 4950 Balance 1257.0 -3385 Weight 83.5 kg Intake: IV 1700.0 1325 Fluconazole in NaCl,Iso- 50 Osm 100 mg In Saline 1 50ml.bag @ 50 mls/hr IVPB DAILY [facility] Rx#:[id number] Piperacillin-Tazobactam 3 50.0 25 .375 gm In Dextrose/Water 1 50ml.bag @ 12.5 mls/hr IVPB Q8H [facility] Rx#: [id number] Sodium Chloride 0.9% 1, 1600 1300 000 ml @ 100 mls/hr IV . Q10H [facility] Rx#:[id number] Oral 240 Output: Drainage 220 500 Biliary drain 1 120 50 Biliary drain 2 50 G Tube 200 J tube 100 200 Urine 223 550 Uretheral (Fish) 400 Other 3900 Other: Voiding Method Indwelling Catheter Indwelling Catheter - Exam Gen. appearance ill-looking cachectic lethargic yet awake, unchanged compared to yesterday Head exam was generally normal. There was no scleral icterus or corneal arcus. Mucous membranes were moist. The patient has temporal wasting Neck was supple and without jugular venous distension, thyromegaly, or carotid bruits. Carotids were easily palpable bilaterally. There was no adenopathy. Lungs were clear to auscultation and percussion, and with normal diaphragmatic excursion. No wheezes or rales were noted. Cardiac exam revealed the PMI to be normally situated and sized. The rhythm was regular and no extrasystoles were noted during several minutes of auscultation. The first and second heart sounds were normal and physiologic splitting of the second heart sound was noted. There were no murmurs, rubs, clicks, or gallops. Abdomen is distended. Tympanic. No direct tenderness. No rebound tensile guarding. There is a GJ drain which is in place. These are connected to dependent drainage. There is also a biliary drain in place in the right upper quadrant. Extremities are showing +1 pitting edema and there is no cyanosis or clubbing at this point. Neurologically awake and alert that is no focal neurological deficit. Examination of the skin revealed no evidence of significant rashes, suspicious appearing nevi or other concerning lesions. - Labs CBC & Chem 7: 02/09/18 11:16 02/09/18 11:16 Labs: Abnormal Lab Results - Last 24 Hours (Table) 02/09/18 02/09/18 Range/Units 11:16 11:16 WBC 13.5 H (3.8-10.6) k/uL RBC 2.84 L (4.30-5.90) m/uL Hgb 10.0 L (13.0-17.5) gm/dL Hct 31.8 L (39.0-53.0) % MCV 111.7 H (80.0-100.0) fL MCH 35.2 H (25.0-35.0) pg RDW 18.9 H (11.5-15.5) % Plt Count 145 L (150-450) k/uL Neutrophils # 11.5 H (1.3-7.7) k/uL Lymphocytes # 0.9 L (1.0-4.8) k/uL Chloride 111 H (98-107) mmol/L BUN 36 H (9-20) mg/dL Calcium 6.4 L* (8.4-10.2) mg/dL Phosphorus 2.4 L (2.5-4.5) mg/dL Magnesium 2.6 H (1.6-2.3) mg/dL Total Bilirubin 2.1 H (0.2-1.3) mg/dL AST 77 H (17-59) U/L ALT 105 H (21-72) U/L Alkaline Phosphatase 258 H (38-126) U/L Total Protein 4.8 L (6.3-8.2) g/dL Albumin 2.0 L (3.5-5.0) g/dL Microbiology - Last 24 Hours (Table) 02/06/18 21:45 Urine Culture - Final Urine,Voided Grisel albicans 02/06/18 17:50 Blood Culture Gram Stain - Final Blood Blood Culture - Final Escherichia coli Assessment and Plan Plan: Assessment: 1 acute E. coli septicemia likely of an intra-abdominal source still on Zosyn. Patient is hemodynamically stable on no pressors. 2 metastatic adenocarcinoma of the esophagus details as discussed earlier in my dictation regarding the diagnostic and therapeutic circumstances. The patient has collateral and liver metastases. 3 mass within the liver/hepatic fossa causing obstructive jaundice and the patient has a biliary drain in place 4 ileus/large bowel obstruction and the patient's GJ drain is advanced to dependent suction 5 ascites, status post paracentesis on 02/08/2018 with removal of 3 L of ascitic fluid 6 COPD 7 hypertension 8 hyperlipidemia 9 obstructive sleep apnea 10 BPH 11 oropharyngeal thrush currently on Diflucan 12 COPD Plan Continue current antibiotic coverage. Patient remains hemodynamically stable, he is breathing and feeling better. Gen. surgery will initiate tube feedings today, patient is passing gas, and had a small bowel movement. Family would like the patient to continue with supportive care, not ready for hospice. Discharge planning has been initiated for placement to subacute rehab was medically cleared. I performed a history & physical examination of the patient and discussed their management with my nurse practitioner, Phuong Jara. I reviewed the nurse practitioner's note and agree with the documented findings and plan of care. Lung sounds are positive for a few scattered bibasilar crackles. The findings and the impression was discussed with the patient. I attest to the documentation by the nurse practitioner. Time with Patient: Less than 30
--- NOTE | 2018-02-09 13:46 | P.CONS ---
History of Present Illness - Reason for Consult Consult date: 02/09/18 Gram-negative bacteremia - History of Present Illness This is a 77-year-old male patient with past medical history significant for esophageal cancer diagnosed in June 2017 status post chemotherapy and has had radiation therapy to the bones in the upper thorax. Patient is undergone previous EGDs and esophageal dilatations 3 in the past. 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 Patient has been treated at the [facility] in [place] and started chemotherapy in July of this year. In October his oncologist changed his chemotherapy and he received 2 doses of this new medication which made him extremely's ill with diarrhea, nausea, weakness. He then returned to [place] and is now followed by Dr. Garcia. Patient had a hospitalization in early December and underwent CAT scan of the abdomen and pelvis revealed hepatobiliary obstruction secondary to neoplasm. He was then transferred to [facility] and has had a GJ tube and two biliary drains placed. He then presented to [facility] emergency center for abdominal distention, nausea and vomiting and lack of bowel movement for 5 days and has been treated for ileus versus small bowel obstruction. He underwent paracentesis yesterday with removal of 3.3 L of fluid and fluid has been sent for cultures and cytology. Dr. kidd is following his over the patient can continue ice chips and start tube feedings. Patient is passing gas. He has been on antimicrobials in the form of fluconazole, Zosyn and vancomycin. Patient has been followed by Dr. Chin for intensive care management and he is signing off today. Oncology is also following. Family is requesting rehab to build the patient's strength so he may undergo chemotherapy and are not open to hospice care option. Oncology states that chemotherapy is for palliative means only. Patient presented with a temperature of 101.1, leukocytosis 15.9 and blood culture is positive for Ecoli. Urine culture is positive for 10,000 49,000 colonies of Grisel albicans. Repeat blood cultures status received. Review of Systems All systems: negative Constitutional: Reports anorexia, Reports fatigue, Reports lethargy, Reports malaise, Reports poor appetite, Reports weakness, Denies chills, Denies fever Eyes: denies blurred vision, denies pain Ears, nose, mouth and throat: Denies headache, Denies sore throat Cardiovascular: Reports dyspnea on exertion, Reports leg edema, Denies chest pain, Denies shortness of breath, Denies syncope Respiratory: Denies cough Gastrointestinal: Reports abdominal pain, Reports bloating, Reports constipation , Reports loss of appetite, Denies diarrhea, Denies nausea, Denies vomiting Genitourinary: Denies dysuria Musculoskeletal: Reports gait dysfunction, Reports muscle weakness, Denies myalgias Integumentary: Denies pruritus, Denies rash Neurological: Denies numbness, Denies weakness Psychiatric: Denies anxiety, Denies depression Endocrine: Denies fatigue, Denies weight change Past Medical History Past Medical History: Cancer, COPD, Hyperlipidemia, Hypertension, Osteoarthritis (OA), Pneumonia, Prostate Disorder, Sleep Apnea/CPAP/BIPAP Additional Past Medical History / Comment(s): HOME OXYGEN PRN. lt eye cataract that needs to have sx had rt cataract done already, pt stated he has esophageal cancer with mets to bone and liver (last chemo about 5 weeks ago). History of Any Multi-Drug Resistant Organisms: None Reported Past Surgical History: Hernia Repair, Orthopedic Surgery Additional Past Surgical History / Comment(s): VASECTOMY.rt knee arthroscopy, rt eye cataract. egd/dilations/bx, peg tube, drains to liver abscess Past Anesthesia/Blood Transfusion Reactions: No Reported Reaction Past Psychological History: Anxiety, Depression Smoking Status: Former smoker Past Alcohol Use History: None Reported Additional Past Alcohol Use History / Comment(s): Patient was a smoker starting at age 15 1 pack a day and quit in 1990. No illicit drug use. Patient lives with his . They winter in [place] and lived in [place] for the bond. 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 Past Drug Use History: None Reported - Past Family History Mother Family Medical History: Coronary Artery Disease (CAD), Dementia Additional Family Medical History / Comment(s): "heart disease" Father Additional Family Medical History / Comment(s): "heart disease" Medications and Allergies Home Medications Medication Instructions Recorded Confirmed Type Albuterol Sulfate [Proair Hfa] 2 puff INHALATION RT-DAILY 12/28/17 02/07/18 History Morphine Sulfate ER [Ms Contin] 30 mg PO Q12HR PRN 12/28/17 02/07/18 History Prochlorperazine [Compazine] 10 mg PO Q6H PRN 12/28/17 02/07/18 History Temazepam [Restoril] 15 mg PO HS PRN 12/28/17 02/07/18 History Tiotropium [place] [Spiriva 1 puff INHALATION RT-DAILY 12/28/17 02/07/18 History Respimat] Ipratropium-Albuterol Nebulize 3 ml INHALATION RT-BID PRN 01/05/18 02/07/18 History [Duoneb 0.5 mg-3 mg/3 ml Soln] Lidocaine-Prilocaine Cream [Emla 1 applic TOPICAL DAILY PRN 01/05/18 02/07/18 History Cream 2.5%/2.5%] oxyCODONE ER [OxyCONTIN] 10 mg PO BID PRN 01/05/18 02/07/18 History Sennosides-Docusate Sodium 1 tab PO BID 02/06/18 02/07/18 History [Senokot-S] Terazosin HCl 1 mg PO HS 02/06/18 02/07/18 History Allergies Allergy/AdvReac Type Severity Reaction Status Date / Time No Known Allergies Allergy Verified 02/07/18 11:05 Physical Exam Vitals: Vital Signs Temp Pulse Pulse Resp BP BP Pulse Ox 02/09/18 12:16 98.0 F 92 21 105/66 95 02/09/18 06:16 97.3 F L 96 16 110/64 98 02/08/18 22:00 97.9 F 90 16 98/60 93 L 02/08/18 20:00 97.7 F 87 7 L 101/56 98 02/08/18 19:00 84 12 02/08/18 18:00 86 10 L 107/68 02/08/18 16:17 85 16 110/68 97 02/08/18 16:02 81 16 109/66 98 02/08/18 15:47 88 16 115/68 99 02/08/18 15:29 87 18 118/72 97 02/08/18 15:00 83 12 108/65 100 02/08/18 14:00 82 18 110/72 96 Intake and Output 02/08/18 02/09/18 02/09/18 22:59 06:59 14:59 Intake Total 765 800 Output Total 4350 600 Balance -3585 200 Intake: IV 525 800 Piperacillin-Tazobactam 3 25 .375 gm In Dextrose/Water 1 50ml.bag @ 12.5 mls/hr IVPB Q8H [facility] Rx#: [id number] Sodium Chloride 0.9% 1, 500 800 000 ml @ 100 mls/hr IV . Q10H [facility] Rx#:[id number] Oral 240 Output: Drainage 300 200 Biliary drain 1 50 Biliary drain 2 50 G Tube 200 J tube 100 100 Urine 150 400 Uretheral (Fish) 400 Other 3900 Other: Voiding Method Indwelling Catheter Indwelling Catheter Gen: This is a thin 77-year-old male. Patient appears to be weak and uncomfortable. HEENT: Head is atraumatic, normocephalic. Pupils equal, round. Sclerae is anicteric. Oral mucous membranes are dry. Patient is edentulous. NECK: Supple. No JVD. No lymphadenopathy. No thyromegaly. LUNGS: Clear to auscultation. No wheezes or rhonchi. No intercostal retractions. HEART: Regular rate and rhythm. No murmur. ABDOMEN: Distended. Bowel sounds are present. GJ tube in place and 2 percutaneous drainage tubes in place. EXTREMITIES: 1+ pedal edema. No calf tenderness. NEUROLOGICAL: Patient is awake, alert and oriented x3. Cranial nerves 2 through 12 are grossly intact. Results Results: Laboratory Results WBC 13.5 k/uL (3.8-10.6) H 02/09/18 11:16 RBC 2.84 m/uL (4.30-5.90) L 02/09/18 11:16 Hgb 10.0 gm/dL (13.0-17.5) L 02/09/18 11:16 Hct 31.8 % (39.0-53.0) L 02/09/18 11:16 MCV 111.7 fL (80.0-100.0) H 02/09/18 11:16 MCH 35.2 pg (25.0-35.0) H 02/09/18 11:16 MCHC 31.5 g/dL (31.0-37.0) 02/09/18 11:16 RDW 18.9 % (11.5-15.5) H 02/09/18 11:16 Plt Count 145 k/uL (150-450) L 02/09/18 11:16 Neutrophils % 85 % 02/09/18 11:16 Lymphocytes % 6 % 02/09/18 11:16 Monocytes % 7 % 02/09/18 11:16 Eosinophils % 1 % 02/09/18 11:16 Basophils % 0 % 02/09/18 11:16 Neutrophils # 11.5 k/uL (1.3-7.7) H 02/09/18 11:16 Lymphocytes # 0.9 k/uL (1.0-4.8) L 02/09/18 11:16 Monocytes # 0.9 k/uL (0-1.0) 02/09/18 11:16 Eosinophils # 0.1 k/uL (0-0.7) 02/09/18 11:16 Basophils # 0.0 k/uL (0-0.2) 02/09/18 11:16 Manual Slide Review Performed 02/09/18 11:16 Hypochromasia Marked 02/09/18 11:16 Anisocytosis Slight 02/09/18 11:16 Macrocytosis Marked 02/09/18 11:16 PT 12.8 sec (9.0-12.0) H 02/06/18 17:50 INR 1.4 (<1.2) H 02/06/18 17:50 APTT 25.5 sec (22.0-30.0) 02/06/18 17:50 Sodium 139 mmol/L (137-145) 02/09/18 11:16 Potassium 4.6 mmol/L (3.5-5.1) 02/09/18 11:16 Chloride 111 mmol/L (98-107) H 02/09/18 11:16 Carbon Dioxide 23 mmol/L (22-30) 02/09/18 11:16 Anion Gap 5 mmol/L 02/09/18 11:16 BUN 36 mg/dL (9-20) H 02/09/18 11:16 Creatinine 0.91 mg/dL (0.66-1.25) 02/09/18 11:16 Est GFR (CKD-EPI)AfAm >90 (>60 ml/min/1.73 sqM) 02/09/18 11:16 Est GFR (CKD-EPI)NonAf 81 (>60 ml/min/1.73 sqM) 02/09/18 11:16 Glucose 99 mg/dL (74-99) 02/09/18 11:16 POC Glucose (mg/dL) 113 mg/dL (75-99) H 02/06/18 23:32 POC Glu Supplier Diversity Director ID Thai Mathis 02/06/18 23:32 Lactic Ac Sepsis Rflx Y 02/06/18 18:23 Plasma Lactic Acid Julian 1.4 mmol/L (0.7-2.0) 02/06/18 22:44 Calcium 6.4 mg/dL (8.4-10.2) L* 02/09/18 11:16 Phosphorus 2.4 mg/dL (2.5-4.5) L 02/09/18 11:16 Magnesium 2.6 mg/dL (1.6-2.3) H 02/09/18 11:16 Total Bilirubin 2.1 mg/dL (0.2-1.3) H 02/09/18 11:16 AST 77 U/L (17-59) H 02/09/18 11:16 ALT 105 U/L (21-72) H 02/09/18 11:16 Alkaline Phosphatase 258 U/L (38-126) H 02/09/18 11:16 Troponin I 0.016 ng/mL (0.000-0.034) 02/06/18 17:50 NT-Pro-B Natriuret Pep 758 pg/mL 02/06/18 17:50 Total Protein 4.8 g/dL (6.3-8.2) L 02/09/18 11:16 Albumin 2.0 g/dL (3.5-5.0) L 02/09/18 11:16 Lipase 69 U/L (23-300) 02/06/18 17:50 Urine Color Dark Yellow 02/06/18 21:45 Urine Appearance Clear (Clear) 02/06/18 21:45 Urine pH 6.0 (5.0-8.0) 02/06/18 21:45 Ur Specific [place] >1.050 (1.001-1.035) H 02/06/18 21:45 Urine Protein 1+ (Negative) H 02/06/18 21:45 Urine Glucose (UA) Negative (Negative) 02/06/18 21:45 Urine Ketones Negative (Negative) 02/06/18 21:45 Urine Blood Negative (Negative) 02/06/18 21:45 Urine Nitrite Negative (Negative) 02/06/18 21:45 Urine Bilirubin Negative (Negative) 02/06/18 21:45 Urine Urobilinogen 2.0 mg/dL (<2.0) 02/06/18 21:45 Ur Leukocyte Esterase Small (Negative) H 02/06/18 21:45 Urine RBC 9 /hpf (0-5) H 02/06/18 21:45 Urine WBC 11 /hpf (0-5) H 02/06/18 21:45 Urine Bacteria Rare /hpf (None) H 02/06/18 21:45 Hyaline Casts 1 /lpf (0-2) 02/06/18 21:45 Urine Mucus Rare /hpf (None) H 02/06/18 21:45 Vancomycin Trough 16.7 ug/mL 02/09/18 11:16 CBC & Chem 7: 02/09/18 11:16 02/09/18 11:16 Labs: Abnormal Lab Results - Last 24 Hours (Table) 02/09/18 02/09/18 Range/Units 11:16 11:16 WBC 13.5 H (3.8-10.6) k/uL RBC 2.84 L (4.30-5.90) m/uL Hgb 10.0 L (13.0-17.5) gm/dL Hct 31.8 L (39.0-53.0) % MCV 111.7 H (80.0-100.0) fL MCH 35.2 H (25.0-35.0) pg RDW 18.9 H (11.5-15.5) % Plt Count 145 L (150-450) k/uL Neutrophils # 11.5 H (1.3-7.7) k/uL Lymphocytes # 0.9 L (1.0-4.8) k/uL Chloride 111 H (98-107) mmol/L BUN 36 H (9-20) mg/dL Calcium 6.4 L* (8.4-10.2) mg/dL Phosphorus 2.4 L (2.5-4.5) mg/dL Magnesium 2.6 H (1.6-2.3) mg/dL Total Bilirubin 2.1 H (0.2-1.3) mg/dL AST 77 H (17-59) U/L ALT 105 H (21-72) U/L Alkaline Phosphatase 258 H (38-126) U/L Total Protein 4.8 L (6.3-8.2) g/dL Albumin 2.0 L (3.5-5.0) g/dL Microbiology - Last 24 Hours (Table) 02/06/18 21:45 Urine Culture - Final Urine,Voided Grisel albicans Assessment and Plan Plan: This is a 77-year-old male patient who has presented with sepsis with E. coli bacteremia most likely from abdominal source, ileus versus small bowel obstruction, and biliary obstruction stage IV, bicytopenia with low RBC and platelet counts. Patient is currently on antimicrobials in the form of fluconazole, Zosyn and vancomycin. Repeat blood cultures are in progress. Continue supportive care. Further recommendations as patient progresses. The above dictated assessment and findings were discussed with Dr. Hagan. The impression and plan of care have been directed as dictated. Nikole Cisneros nurse practitioner acting as scribe for Dr. Hagan.
[2018-02-09] MEDS: VANCOMYCIN 1,250 MG in SODIUM CHLORIDE 0.9% 250 ML IVPB SCH (14:58)
--- NOTE | 2018-02-09 20:57 | P.PN ---
Subjective Progress Note Date: 02/09/18 This is 77 years old male with past medical history significant for esophageal cancer with liver metastasis presents to the hospital with abdominal pain and intractable vomiting. Initial evaluation in the emergency revealed possible ileus versus small bowel obstruction patient kept nothing by mouth treated symptomatically and his PEG tube was placed to dependent drainage. Patient currently feels improved with less nausea and less abdominal pain and stated he is at least like 50% improved since yesterday. Patient reported severe constipation and stated that it's been 5 days without bowel movement but he still passing gas. Patient reported significant declining in his appetite and subjective weight loss. Daughter at the bedside who brought him to the hospital and stated that he's been declining steadily since his last chemo 5 weeks ago but decided with his oncologist to continue another round of chemo before given up. Patient recently received new J-tube placed and to hepatic drains placed to his right upper quadrant due to biliary obstruction and has been draining green material without any difficulty. Currently his dependent drainage bag is filled with a green was some brownish material. 02/08: Patient has been seen by Dr. Martinez and patient is not a surgical candidate due to his poor prognosis and stage IV cancer. No plan for any surgical intervention at this time. 2 feedings to be trialed through the J- tube keeping the G-tube dependent drainage. Also noted the patient may benefit from suppositories and/or enemas. Patient did receive suppository yesterday and only had very small amount of bowel movement. He does have abdominal bloating and apparently Dr. Garcia is ordered a paracentesis for today which he was to have outpatient. He has had decreased output from the drains on the right side. For antimicrobials, patient is on fluconazole, Zosyn and vancomycin. Patient is also followed by Dr. Chin for intensive care management. 02/09: He underwent paracentesis yesterday with removal of 3.3 L of fluid and fluid has been sent for cultures and cytology. Dr. Martinez is following and patient can continue ice chips and start tube feedings. Patient is passing gas. He has been on antimicrobials in the form of fluconazole, Zosyn and vancomycin. Patient has been followed by Dr. Chin for intensive care management and he is signing off today. Oncology is also following. Family is requesting rehab to build the patient's strength so he may undergo chemotherapy and are not open to hospice care option. Oncology states that chemotherapy is for palliative means only. Blood culture positive for E coli. Consult added for Dr Hagan. Repeat blood cultures status received. Objective - Vital Signs Vital signs: Vital Signs Temp 97.3 F L 02/09/18 06:16 Pulse 96 02/09/18 06:16 Resp 16 02/09/18 06:16 BP 110/64 02/09/18 06:16 Pulse Ox 98 02/09/18 06:16 Intake & Output 02/08/18 02/09/18 02/09/18 18:59 06:59 18:59 Intake Total 1700.0 1565 Output Total 443 4950 Balance 1257.0 -3385 Weight 83.5 kg Intake: IV 1700.0 1325 Fluconazole in NaCl,Iso- 50 Osm 100 mg In Saline 1 50ml.bag @ 50 mls/hr IVPB DAILY [facility] Rx#:[id number] Piperacillin-Tazobactam 3 50.0 25 .375 gm In Dextrose/Water 1 50ml.bag @ 12.5 mls/hr IVPB Q8H [facility] Rx#: [id number] Sodium Chloride 0.9% 1, 1600 1300 000 ml @ 100 mls/hr IV . Q10H [facility] Rx#:[id number] Oral 240 Output: Drainage 220 500 Biliary drain 1 120 50 Biliary drain 2 50 G Tube 200 J tube 100 200 Urine 223 550 Uretheral (Fish) 400 Other 3900 Other: Voiding Method Indwelling Catheter Indwelling Catheter - Exam Gen.: in stated age, no acute distress Heart: Normal S1-S2 Lungs: Clear to auscultation bilaterally Abdomen: Soft, positive for generalized tenderness without guarding or rebound, positive for hypoactive bowel sounds, positive for mid abdomen J tube in place, positive for right upper quadrant to percutaneous drainage in place with greenish colored material. Skin: No new rash Psych: Alert and oriented 3 Neuro: No focal deficit - Labs CBC & Chem 7: 02/09/18 11:16 02/09/18 11:16 Labs: Microbiology - Last 24 Hours (Table) 02/06/18 21:45 Urine Culture - Final Urine,Voided Grisel albicans 02/06/18 17:50 Blood Culture Gram Stain - Final Blood Blood Culture - Final Escherichia coli Assessment and Plan Plan: 1. Acute E. coli septicemia from a abdominal source.. Continue Zosyn and vancomycin. Consult Dr Hagan, repeat blood cultures. 2. Esophageal cancer with liver metastasis. 3. Small bowel obstruction. Ice chips and tube feedings to start. 4. Severe protein calorie malnutrition with weight loss Status post PEG tube placement. 5. Mass within the liver causing obstructive jaundice Status post dual percutaneous biliary tube placements. 6. Ascites status post diagnostic and therapeutic paracentesis. 7. Obstructive sleep apnea. 8. Benign prostatic hypertrophy with Fish catheter in place. 9. Mild leukocytosis. 10. Anemia of chronic disease. 11. Asymptomatic bacteriuria. 12. Chronic pain syndrome. 13. Chronic constipation. Prognosis poor Impression and plan of care have been directed as dictated by the signing physician. Nikole Cisneros nurse practitioner acting as scribe for signing physician.
[2018-02-09] MEDS: SENNOSIDES-DOCUSATE SODIUM 1 EACH TAB PO SCH (21:58)
--- NOTE | 2018-02-09 22:25 | P.CON ---
Consult Note - . Consult date: 02/09/18 Assessment/Plan:: This is a 77-year-old male patient with past medical history significant for esophageal cancer diagnosed in June 2017 status post chemotherapy and has had radiation therapy to the bones in the upper thorax. Patient is undergone previous EGDs and esophageal dilatations 3 in the past. 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 Patient has been treated at the [facility] in [place] and started chemotherapy in July of this year. In October his oncologist changed his chemotherapy and he received 2 doses of this new medication which made him extremely's ill with diarrhea, nausea, weakness. He then returned to [place] and is now followed by Dr. Garcia. Patient had a hospitalization in early December and underwent CAT scan of the abdomen and pelvis revealed hepatobiliary obstruction secondary to neoplasm. He was then transferred to [facility] and has had a GJ tube and two biliary drains placed. He then presented to [facility] emergency center for abdominal distention, nausea and vomiting and lack of bowel movement for 5 days and has been treated for ileus versus small bowel obstruction. He underwent paracentesis yesterday with removal of 3.3 L of fluid and fluid has been sent for cultures and cytology. Dr. kidd is following his over the patient can continue ice chips and start tube feedings. Patient is passing gas. He has been on antimicrobials in the form of fluconazole, Zosyn and vancomycin. Patient has been followed by Dr. Chin for intensive care management and he is signing off today. Oncology is also following. Family is requesting rehab to build the patient's strength so he may undergo chemotherapy and are not open to hospice care option. Oncology states that chemotherapy is for palliative means only. Patient presented with a temperature of 101.1, leukocytosis 15.9 and blood culture is positive for Ecoli. Urine culture is positive for 10,000 49,000 colonies of Grisel albicans. Repeat blood cultures status received. Please see the consult note is dictated by nurse practitioner Nikole Carrmarcelino. 77-year-old male who has a very extensive recent past medical history given his esophageal cancer with evidence of metastatic disease. He has been receiving chemotherapy but has now been quite ill is receiving care here locally in the care of his family. As noted developed obstructive disease and he has a gastrojejunostomy tube as well as barely retrains. He has developed evidence of sepsis with leukocytosis and fever and there is evidence of E. coli bacteremia. The patient has multiple potential portals of the bacteremia including the urine but more likely related to his intra-abdominal process. Currently receiving antimicrobial therapy with Zosyn and vancomycin and fluconazole. There does not appear to be a gram-positive infection and the vancomycin may be discontinued. Follow-up cultures are in process. He fortunately has a port in place which will allow transition to outpatient intravenous antibiotic therapy if overall aggressive course of therapy will continue. There is a potential the patient may go to rehab to improve his strength to potentially improve his performance status to allow further chemotherapy in the future. I agree with evaluation, assessment and plan is to give her nurse practitioner Mrs. Nikole Cisneros.
[2018-02-10] MEDS: SODIUM CHLORIDE 0.9% 1,000 ML IV SCH ×3 (02:00→23:36)
[2018-02-10] MEDS: VANCOMYCIN 1,250 MG in SODIUM CHLORIDE 0.9% 250 ML IVPB SCH ×2 (04:57→20:04)
[2018-02-10] MEDS: PIPERACILLIN-TAZOBACTAM 3.375 GM in DEXTROSE/WATER 1 50ML.BAG IVPB SCH ×3 (06:09→23:48)
[2018-02-10 08:09] LABS: Anisocytosis Slight; Basophils % (A) 0 %; Eosinophils # (A) 0.1 k/uL (0-0.7); Eosinophils % (A) 1 %; HCT 33.2 % (39.0-53.0); HGB 10.2 gm/dL (13.0-17.5); Hypochromasia Marked; Lymphocytes % (A) 8 %; MCH 34.6 pg (25.0-35.0); MCHC 30.6 g/dL (31.0-37.0); MCV 113.1 fL (80.0-100.0); Macrocytosis Marked; Mean Platelet Volume 7.4; Monocytes # (A) 0.9 k/uL (0-1.0); Monocytes % (A) 8 %; Neutrophils # (A) 10.1 k/uL (1.3-7.7); Neutrophils % (A) 82 %; Platelet Count 162 k/uL (150-450); RBC 2.94 m/uL (4.30-5.90); WBC 12.3 k/uL (3.8-10.6)
[2018-02-10 08:31] LABS: Magnesium 2.5 mg/dL (1.6-2.3); Phosphorus 2.2 mg/dL (2.5-4.5); Potassium 4.5 mmol/L (3.5-5.1)
[2018-02-10 08:42] LABS: Calcium 6.3 mg/dL (8.4-10.2)
[2018-02-10 09:00] LABS: Polychromasia Present
[2018-02-10 09:01] LABS: Poikilocytosis (M) Present; Spherocytes Present
[2018-02-10] MEDS: NYSTATIN 100,000 UNIT/ML SUSP 500,000 UNIT/5 ML CUP PO SCH ×4 (09:11→20:06)
[2018-02-10] MEDS: PANTOPRAZOLE 40 MG/10 ML VIAL IV SCH (09:11)
[2018-02-10] MEDS: POLYETHYLENE GLYCOL 3350 17 GM POWD.PACK PO SCH (09:12)
[2018-02-10] MEDS: SENNOSIDES 8.6 MG TAB PO SCH ×2 (09:14→20:05)
[2018-02-10] MEDS: SENNOSIDES-DOCUSATE SODIUM 1 EACH TAB PO SCH ×2 (09:14→20:05)
[2018-02-10] MEDS: FLUCONAZOLE IN NACL,ISO-OSM 100 MG in SALINE 1 50ML.BAG IVPB SCH (09:18)
[2018-02-10] MEDS ORDERED: IPRATROPIUM-ALBUTEROL 3 ML NEB INHALATION PRN (09:20)
--- NOTE | 2018-02-10 10:38 | FL ---
EXAMINATION TYPE: FL feeding tube DATE OF EXAM: 02/10/2018 COMPARISON: 02/08/2018 HISTORY: 77-year-old male referred for assessment of placement of both and enteric tube ports. TECHNIQUE: Single AP portable view in the supine position. FINDINGS: Distended loop of transverse colon remains measuring 8.7 cm, not significantly changed. There seem to be 2 right-sided biliary drains. Double lumen enteric tube seems to enter the stomach where the distal antrum and pylorus is opacified. The tube continues around the C-loop of the duodenum with tip in the region of the proximal jejunum. There is additional opacification of the duodenal jejunal junction. 20 mL of Isovue-370 was injected into each port IMPRESSION: 20 mL of Isovue-370 injected into each port. There is opacification involving the distal gastric antrum and pylorus/duodenal bulb region. Second area of opacification involves the duodenal jejunal junction. The catheter tip is in the proximal most jejunum. MTDD
[2018-02-10] MEDS: IPRATROPIUM-ALBUTEROL 3 ML NEB INHALATION SCH ×3 (11:29→19:32)
[2018-02-10] MEDS: MORPHINE SULFATE 4 MG/ML SYRINGE IV PRN ×2 (11:46→17:57)
--- NOTE | 2018-02-10 14:31 | P.PN ---
Subjective Progress Note Date: 02/10/18 This is 77 years old male with past medical history significant for esophageal cancer with liver metastasis presents to the hospital with abdominal pain and intractable vomiting. Initial evaluation in the emergency revealed possible ileus versus small bowel obstruction patient kept nothing by mouth treated symptomatically and his PEG tube was placed to dependent drainage. Patient currently feels improved with less nausea and less abdominal pain and stated he is at least like 50% improved since yesterday. Patient reported severe constipation and stated that it's been 5 days without bowel movement but he still passing gas. Patient reported significant declining in his appetite and subjective weight loss. Daughter at the bedside who brought him to the hospital and stated that he's been declining steadily since his last chemo 5 weeks ago but decided with his oncologist to continue another round of chemo before given up. Patient recently received new J-tube placed and to hepatic drains placed to his right upper quadrant due to biliary obstruction and has been draining green material without any difficulty. Currently his dependent drainage bag is filled with a green was some brownish material. 02/08: Patient has been seen by Dr. Martinez and patient is not a surgical candidate due to his poor prognosis and stage IV cancer. No plan for any surgical intervention at this time. 2 feedings to be trialed through the JG- tube dependent drainage. Also noted the patient may benefit from suppositories and/or enemas. Patient did receive suppository yesterday and only had very small amount of bowel movement. He does have abdominal bloating and apparently Dr. Garcia is ordered a paracentesis for today which he was to have outpatient. He has had decreased output from the drains on the right side. For antimicrobials, patient is on fluconazole, Zosyn and vancomycin. Patient is also followed by Dr. Chin for intensive care management. 02/09: He underwent paracentesis yesterday with removal of 3.3 L of fluid and fluid has been sent for cultures and cytology. Dr. Martinez is following and patient can continue ice chips and start tube feedings. Patient is passing gas. He has been on antimicrobials in the form of fluconazole, Zosyn and vancomycin. Patient has been followed by Dr. Chin for intensive care management and he is signing off today. Oncology is also following. Family is requesting rehab to build the patient's strength so he may undergo chemotherapy and are not open to hospice care option. Oncology states that chemotherapy is for palliative means only. Blood culture positive for E coli. Consult added for Dr Hagan. Repeat blood cultures status received. 02/10: Patient has more abdominal distention today. Abdominal ultrasound ordered. There is concern that his JG tube was pulled out slightly. [place] to evaluate this afternoon. Drainage tubes are still draining well. Patient is requesting inhalers and nebulizer treatment will be ordered as needed. Patient also resumed on Spiriva or equivalent. Patient was seen by Dr. Hagan and is continued at this point on fluconazole, Zosyn and vancomycin. Repeat blood cultures showing no growth after 24 hours. He does have a port in place and will not need PICC line placement. Paracentesis fluid culture is in process. Dr. Grimm discussed in detail with the patient and his at the bedside patient's poor prognosis and they are open to have hospice informational meeting. Objective - Vital Signs Vital signs: Vital Signs Temp 97.6 F 02/10/18 05:00 Pulse 87 02/10/18 05:00 Resp 16 02/10/18 05:00 BP 108/71 02/09/18 21:35 Pulse Ox 96 02/10/18 05:00 Intake & Output 02/09/18 02/10/18 02/10/18 18:59 06:59 18:59 Intake Total 10 10 Output Total 160 Balance 10 -150 Weight 83.5 kg Intake: Tube Feeding 10 10 Output: Drainage 160 Biliary drain 1 160 Other: Voiding Method Indwelling Catheter Indwelling Catheter - Exam Gen.: in stated age, no acute distress Heart: Normal S1-S2 Lungs: Clear to auscultation bilaterally Abdomen: Soft, positive for generalized tenderness without guarding or rebound, positive for hypoactive bowel sounds, positive for mid abdomen J tube in place, positive for right upper quadrant to percutaneous drainage in place with greenish colored material. Skin: No new rash Psych: Alert and oriented 3 Neuro: No focal deficit - Labs CBC & Chem 7: 02/10/18 07:50 02/10/18 07:50 Labs: Abnormal Lab Results - Last 24 Hours (Table) 02/09/18 02/09/18 02/10/18 Range/Units 11:16 11:16 07:50 WBC 13.5 H 12.3 H (3.8-10.6) k/uL RBC 2.84 L 2.94 L (4.30-5.90) m/uL Hgb 10.0 L 10.2 L (13.0-17.5) gm/dL Hct 31.8 L 33.2 L (39.0-53.0) % MCV 111.7 H 113.1 H (80.0-100.0) fL MCH 35.2 H (25.0-35.0) pg MCHC 30.6 L (31.0-37.0) g/dL RDW 18.9 H 19.0 H (11.5-15.5) % Plt Count 145 L (150-450) k/uL Neutrophils # 11.5 H 10.1 H (1.3-7.7) k/uL Lymphocytes # 0.9 L (1.0-4.8) k/uL Chloride 111 H (98-107) mmol/L BUN 36 H (9-20) mg/dL Glucose (74-99) mg/dL Calcium 6.4 L* (8.4-10.2) mg/dL Phosphorus 2.4 L (2.5-4.5) mg/dL Magnesium 2.6 H (1.6-2.3) mg/dL Total Bilirubin 2.1 H (0.2-1.3) mg/dL AST 77 H (17-59) U/L ALT 105 H (21-72) U/L Alkaline Phosphatase 258 H (38-126) U/L Total Protein 4.8 L (6.3-8.2) g/dL Albumin 2.0 L (3.5-5.0) g/dL 02/10/18 Range/Units 07:50 WBC (3.8-10.6) k/uL RBC (4.30-5.90) m/uL Hgb (13.0-17.5) gm/dL Hct (39.0-53.0) % MCV (80.0-100.0) fL MCH (25.0-35.0) pg MCHC (31.0-37.0) g/dL RDW (11.5-15.5) % Plt Count (150-450) k/uL Neutrophils # (1.3-7.7) k/uL Lymphocytes # (1.0-4.8) k/uL Chloride 110 H (98-107) mmol/L BUN 34 H (9-20) mg/dL Glucose 102 H (74-99) mg/dL Calcium 6.3 L* (8.4-10.2) mg/dL Phosphorus 2.2 L (2.5-4.5) mg/dL Magnesium 2.5 H (1.6-2.3) mg/dL Total Bilirubin (0.2-1.3) mg/dL AST (17-59) U/L ALT (21-72) U/L Alkaline Phosphatase (38-126) U/L Total Protein (6.3-8.2) g/dL Albumin (3.5-5.0) g/dL Microbiology - Last 24 Hours (Table) 02/08/18 15:44 Gram Stain - Preliminary Paracentesis Fluid Body Fluid Culture - Preliminary 02/08/18 11:35 Blood Culture - Preliminary Blood No Growth after 24 hours 02/08/18 11:19 Blood Culture - Preliminary Blood No Growth after 24 hours 02/06/18 21:45 Urine Culture - Final Urine,Voided Grisel albicans Assessment and Plan Plan: 1. Acute E. coli septicemia from a abdominal source.. Continue Zosyn and vancomycin. Consult Dr Hagan, repeat blood cultures. 2. Esophageal cancer with liver metastasis. 3. Small bowel obstruction. Ice chips and tube feedings to start. 4. Severe protein calorie malnutrition with weight loss Status post PEG tube placement. 5. Mass within the liver causing obstructive jaundice Status post dual percutaneous biliary tube placements. 6. Ascites status post diagnostic and therapeutic paracentesis. 7. Obstructive sleep apnea. 8. Benign prostatic hypertrophy with Fish catheter in place. 9. Mild leukocytosis. 10. Anemia of chronic disease. 11. Asymptomatic bacteriuria. 12. Chronic pain syndrome. 13. Chronic constipation. Prognosis poor Hospice informational meeting Impression and plan of care have been directed as dictated by the signing physician. Nikole Cisneros nurse practitioner acting as scribe for signing physician.
--- NOTE | 2018-02-10 14:55 | US ---
EXAMINATION TYPE: US abdomen limited DATE OF EXAM: 02/10/2018 COMPARISON: 02/08/2018 CLINICAL HISTORY: 77-year-old male evaluate ascites. TECHNIQUE: Multiple sonographic images of the 4 abdominal quadrants for assessment of ascites. FINDINGS: Ascites seen in all 4 quadrants. Moderate ascites is demonstrated. IMPRESSION: Moderate abdominal ascites in all 4 quadrants.
--- NOTE | 2018-02-10 19:04 | P.PN ---
Subjective Progress Note Date: 02/10/18 Principal diagnosis: hypotension, metastatic esophageal adenocarcinoma Pt seen in f/u, he is unhappy, uncomfortable and wants to go home. No appetite , very weak, back hurts laying in the bed. Objective - Vital Signs Vital signs: Vital Signs Temp 97.6 F 02/10/18 13:18 Pulse 96 02/10/18 15:44 Resp 18 02/10/18 13:18 BP 113/76 02/10/18 13:18 Pulse Ox 96 02/10/18 13:18 Intake & Output 02/09/18 02/10/18 02/10/18 18:59 06:59 18:59 Intake Total 10 10 450 Output Total 160 940 Balance 10 -150 -490 Weight 83.5 kg Intake: IV 100 Sodium Chloride 0.9% 1, 100 000 ml @ 100 mls/hr IV . Q10H [facility] Rx#:[id number] Intake, IV Titration 350 Amount Fluconazole in NaCl,Iso- 50 Osm 100 mg In Saline 1 50ml.bag @ 50 mls/hr IVPB DAILY [facility] Rx#:[id number] Piperacillin-Tazobactam 3 50 .375 gm In Dextrose/Water 1 50ml.bag @ 12.5 mls/hr IVPB Q8H [facility] Rx#: [id number] Vancomycin 1,250 mg In 250 Sodium Chloride 0.9% 250 ml @ 125 mls/hr IVPB Q16H [facility] Rx#:[id number] Tube Feeding 10 10 Output: Drainage 160 340 Biliary drain 1 160 0 Biliary drain 2 40 G Tube 300 Urine 600 Other: Voiding Method Indwelling Catheter Indwelling Catheter Indwelling Catheter # Voids 0 - Exam Frail pt, muscle wasting, profoundly distended, firm abd, G-J tube has copious, clear, yellow, gelatinous drainage around it, biliary drains have small amt of bile in them, lazar has dark flavio urine. Pt is weak and not able to independently move his own weight/change positions in the bed - Labs CBC & Chem 7: 02/10/18 07:50 02/10/18 07:50 Labs: Abnormal Lab Results - Last 24 Hours (Table) 02/10/18 02/10/18 Range/Units 07:50 07:50 WBC 12.3 H (3.8-10.6) k/uL RBC 2.94 L (4.30-5.90) m/uL Hgb 10.2 L (13.0-17.5) gm/dL Hct 33.2 L (39.0-53.0) % MCV 113.1 H (80.0-100.0) fL MCHC 30.6 L (31.0-37.0) g/dL RDW 19.0 H (11.5-15.5) % Neutrophils # 10.1 H (1.3-7.7) k/uL Chloride 110 H (98-107) mmol/L BUN 34 H (9-20) mg/dL Glucose 102 H (74-99) mg/dL Calcium 6.3 L* (8.4-10.2) mg/dL Phosphorus 2.2 L (2.5-4.5) mg/dL Magnesium 2.5 H (1.6-2.3) mg/dL Microbiology - Last 24 Hours (Table) 02/08/18 11:35 Blood Culture - Preliminary Blood No Growth after 48 hours 02/08/18 11:19 Blood Culture - Preliminary Blood No Growth after 48 hours 02/08/18 15:44 Gram Stain - Preliminary Paracentesis Fluid Body Fluid Culture - Preliminary Assessment and Plan (1) Metastasis from esophageal cancer Current Visit: Yes Status: Acute Priority: High Code(s): C79.9 - SECONDARY MALIGNANT NEOPLASM OF UNSPECIFIED SITE; C15.9 - MALIGNANT NEOPLASM OF ESOPHAGUS, UNSPECIFIED SNOMED Code(s): 740455245 (2) Gastric outlet obstruction Current Visit: Yes Status: Acute Priority: High Code(s): K31.1 - ADULT HYPERTROPHIC PYLORIC STENOSIS SNOMED Code(s): 120046749 (3) Distended abdomen Current Visit: Yes Status: Acute Priority: High Code(s): R14.0 - ABDOMINAL DISTENSION (GASEOUS) SNOMED Code(s): 88703324 (4) Physical debility Current Visit: Yes Status: Acute Priority: High Code(s): R53.81 - OTHER MALAISE SNOMED Code(s): 35858733 Plan: >30 min spent counseling and coordinating care. Spoke with pt and family about concerns of rapidly recurrent ascites, realistically pt ability to improve his PS to even consider palliative chemotherapy. All questions answered to pt and family satisfaction. Pt and family wanted some more time to think about things. I believe they also had an extensive discussion with IM. Final plan was decided and pt is going to go home with hospice, which is very reasonable. Pt ok to be discharged once hospice in place. Time with Patient: Greater than 30
--- NOTE | 2018-02-10 19:26 | FL ---
Abdomen single view. History check feeding tube. Comparison today. FINDINGS: An image of the upper abdomen shows contrast injected in the gastrostomy tube. There is a Puddle of c ontrast that is probably in the gastric fundus. I see no contrast extravasation. IMPRESSION: Feeding tube is probably in good position in the gastric fundus.
[2018-02-11] MEDS: MORPHINE SULFATE 4 MG/ML SYRINGE IV PRN (02:21)
[2018-02-11] MEDS: PIPERACILLIN-TAZOBACTAM 3.375 GM in DEXTROSE/WATER 1 50ML.BAG IVPB SCH (05:28)
[2018-02-11 06:09] LABS: INR 2.2 (<1.2); Prothrombin Time 19.7 sec (9.0-12.0)
[2018-02-11 06:28] LABS: Calcium 6.6 mg/dL (8.4-10.2); Potassium 4.5 mmol/L (3.5-5.1)
[2018-02-11] MEDS ORDERED: IPRATROPIUM 0.5 MG/2.5 ML NEBU INHALATION SCH (08:00)
[2018-02-11] MEDS: IPRATROPIUM-ALBUTEROL 3 ML NEB INHALATION SCH ×3 (08:04→16:01)
[2018-02-11] MEDS: SENNOSIDES 8.6 MG TAB PO SCH (09:16)
[2018-02-11] MEDS: POLYETHYLENE GLYCOL 3350 17 GM POWD.PACK PO SCH (09:16)
[2018-02-11] MEDS: SENNOSIDES-DOCUSATE SODIUM 1 EACH TAB PO SCH (09:17)
[2018-02-11] MEDS: FLUCONAZOLE IN NACL,ISO-OSM 100 MG in SALINE 1 50ML.BAG IVPB SCH (09:32)
[2018-02-11] MEDS: SODIUM CHLORIDE 0.9% 1,000 ML IV SCH (09:32)
[2018-02-11] MEDS: PANTOPRAZOLE 40 MG/10 ML VIAL IV SCH (09:32)
[2018-02-11] MEDS: NYSTATIN 100,000 UNIT/ML SUSP 500,000 UNIT/5 ML CUP PO SCH (09:32)
[2018-02-11] MEDS ORDERED: MORPHINE ORAL SOLN 10 MG/5 ML CUP PO PRN (09:48)
[2018-02-11] MEDS ORDERED: MORPHINE CONC SOLN 10mg/0.5mL ORAL SYRG SL PRN (09:53)
[2018-02-11] MEDS ORDERED: LORazepam ORAL CONC 60 MG/30 ML BOTTLE SL PRN (10:45)
--- NOTE | 2018-02-11 10:56 | P.DS ---
<Nikole Cisneros A - Last Filed: 02/11/18 10:54> Providers Date of admission: 02/06/18 21:56 Expected date of discharge: 02/11/18 Attending physician: Loyd Yung Consults: 02/06/18 21:56 Consult Physician Routine Consulting Provider: Nila Chin Consult Reason/Comments: Hypotension with fever Do you want consulting provider notified?: Already Contacted Consult Physician Routine Consulting Provider: Ben Garcia Consult Reason/Comments: Metastatic esophageal cancer Do you want consulting provider notified?: Already Contacted Consult Physician Routine Consulting Provider: Karly Singh Consult Reason/Comments: Evaluation for SBO Do you want consulting provider notified?: Yes, Notify in am 02/09/18 11:12 Consult Physician Routine Consulting Provider: Petey Hagan Consult Reason/Comments: bacteremia Do you want consulting provider notified?: Yes Primary care physician: [facility] Course: This is 77 years old male with past medical history significant for esophageal cancer with liver metastasis presents to the hospital with abdominal pain and intractable vomiting. Initial evaluation in the emergency revealed possible ileus versus small bowel obstruction patient kept nothing by mouth treated symptomatically and his PEG tube was placed to dependent drainage. Patient currently feels improved with less nausea and less abdominal pain and stated he is at least like 50% improved since yesterday. Patient reported severe constipation and stated that it's been 5 days without bowel movement but he still passing gas. Patient reported significant declining in his appetite and subjective weight loss. Daughter at the bedside who brought him to the hospital and stated that he's been declining steadily since his last chemo 5 weeks ago but decided with his oncologist to continue another round of chemo before given up. Patient recently received new J-tube placed and to hepatic drains placed to his right upper quadrant due to biliary obstruction and has been draining green material without any difficulty. Currently his dependent drainage bag is filled with a green was some brownish material. 02/08: Patient has been seen by Dr. Martinez and patient is not a surgical candidate due to his poor prognosis and stage IV cancer. No plan for any surgical intervention at this time. 2 feedings to be trialed through the JG- tube dependent drainage. Also noted the patient may benefit from suppositories and/or enemas. Patient did receive suppository yesterday and only had very small amount of bowel movement. He does have abdominal bloating and apparently Dr. Garcia is ordered a paracentesis for today which he was to have outpatient. He has had decreased output from the drains on the right side. For antimicrobials, patient is on fluconazole, Zosyn and vancomycin. Patient is also followed by Dr. Chin for intensive care management. 02/09: He underwent paracentesis yesterday with removal of 3.3 L of fluid and fluid has been sent for cultures and cytology. Dr. Martinez is following and patient can continue ice chips and start tube feedings. Patient is passing gas. He has been on antimicrobials in the form of fluconazole, Zosyn and vancomycin. Patient has been followed by Dr. Chin for intensive care management and he is signing off today. Oncology is also following. Family is requesting rehab to build the patient's strength so he may undergo chemotherapy and are not open to hospice care option. Oncology states that chemotherapy is for palliative means only. Blood culture positive for E coli. Consult added for Dr Hagan. Repeat blood cultures status received. 02/10: Patient has more abdominal distention today. Abdominal ultrasound ordered. There is concern that his JG tube was pulled out slightly. Dr. Martinez to evaluate this afternoon. Drainage tubes are still draining well. Patient is requesting inhalers and nebulizer treatment will be ordered as needed. Patient also resumed on Spiriva or equivalent. Patient was seen by Dr. Hagan and is continued at this point on fluconazole, Zosyn and vancomycin. Repeat blood cultures showing no growth after 24 hours. He does have a port in place and will not need PICC line placement. Paracentesis fluid culture is in process. Dr. Grimm discussed in detail with the patient and his at the bedside patient's poor prognosis and they are open to have hospice informational meeting. 02/11: Patient is agreeable to going home with hospice. [facility] is following the patient. He had a G-tube placed yesterday with Dr. martinez to drain gastric contents. Patient is currently unable to take anything orally due to esophageal stricture. All medications have been discontinued except for morphine sublingual, Ativan sublingual, fentanyl patch has been added and Dulcolax suppository. He is scheduled for therapeutic paracentesis today and will be discharged home later this afternoon in stable condition. Discharge diagnoses: 1. Acute E. coli septicemia from a abdominal source. 2. Esophageal cancer with liver metastasis. 3. Small bowel obstruction. 4. Severe protein calorie malnutrition with weight loss 5. Mass within the liver causing obstructive jaundice Status post dual percutaneous biliary tube placements. 6. Ascites status post diagnostic and therapeutic paracentesis. 7. Obstructive sleep apnea. 8. Benign prostatic hypertrophy with Fish catheter in place. 9. Mild leukocytosis. 10. Anemia of chronic disease. 11. Asymptomatic bacteriuria. 12. Chronic pain syndrome. 13. Chronic constipation. Discharge plan: Home with [facility] Impression and plan of care have been directed as dictated by the signing physician. Nikole Cisneros nurse practitioner acting as scribe for signing physician. Patient Condition at Discharge: Stable Plan - Discharge Summary Discharge Rx Participant: Yes New Discharge Prescriptions: New MORPHINE ORAL JOHNNY 2mg/mL [Morphine Oral Soln 2 MG/ML] 5 mg PO Q4H PRN #30 ml PRN Reason: Pain fentaNYL 12MCG/HR PATCH [Duragesic 12MCG/HR] 12 mcg TRANSDERM Q48H 3 Days #1 patch Continue Temazepam [Restoril] 15 mg PO HS PRN PRN Reason: Insomnia Prochlorperazine [Compazine] 10 mg PO Q6H PRN PRN Reason: Nausea Morphine Sulfate ER [Ms Contin] 30 mg PO Q12HR PRN PRN Reason: Pain Tiotropium [place] [Spiriva Respimat] 1 puff INHALATION RT-DAILY Albuterol Sulfate [Proair Hfa] 2 puff INHALATION RT-DAILY Ipratropium-Albuterol Nebulize [Duoneb 0.5 mg-3 mg/3 ml Soln] 3 ml INHALATION RT-BID PRN PRN Reason: Shortness Of Breath Lidocaine-Prilocaine Cream [Emla Cream 2.5%/2.5%] 1 applic TOPICAL DAILY PRN PRN Reason: Pain Terazosin HCl 1 mg PO HS Sennosides-Docusate Sodium [Senokot-S] 1 tab PO BID Discontinued oxyCODONE ER [OxyCONTIN] 10 mg PO BID PRN PRN Reason: Pain Discharge Medication List Albuterol Sulfate [Proair Hfa] 2 puff INHALATION RT-DAILY 12/28/17 [History] Morphine Sulfate ER [Ms Contin] 30 mg PO Q12HR PRN 12/28/17 [History] Prochlorperazine [Compazine] 10 mg PO Q6H PRN 12/28/17 [History] Temazepam [Restoril] 15 mg PO HS PRN 12/28/17 [History] Tiotropium [place] [Spiriva Respimat] 1 puff INHALATION RT-DAILY 12/28/17 [ History] Ipratropium-Albuterol Nebulize [Duoneb 0.5 mg-3 mg/3 ml Soln] 3 ml INHALATION RT -BID PRN 01/05/18 [History] Lidocaine-Prilocaine Cream [Emla Cream 2.5%/2.5%] 1 applic TOPICAL DAILY PRN 12/16 [History] Sennosides-Docusate Sodium [Senokot-S] 1 tab PO BID 02/06/18 [History] Terazosin HCl 1 mg PO HS 02/06/18 [History] MORPHINE ORAL JOHNNY 2mg/mL [Morphine Oral Soln 2 MG/ML] 5 mg PO Q4H PRN #30 ml [Rx] fentaNYL 12MCG/HR PATCH [Duragesic 12MCG/HR] 12 mcg TRANSDERM Q48H 3 Days #1 patch 02/11/18 [Rx] Follow up Appointment(s)/Referral(s): Martin Ron MD [Primary Care Provider] - 02/18/18 1:00 pm [facility] Visiting Nurse, [NON-STAFF] - 1-2 Days Patient Instructions/Handouts: Lorazepam (By mouth), Morphine, Rapid Release ( By mouth), Fentanyl (Absorbed through the skin), Atropine (Into the eye), Hypertension (DC) Care Plan Goals (MU): [facility]- , will deliver cane, if you have any questions or concerns, please notify agency. Discharge Disposition: HOME WITH HOME HEALTH SERVICES <Steffen Recinos - Last Filed: 02/11/18 16:02> Hospital Course: Patient on discharge decided to go home without hospice and placement of JG tube as outpatient at [facility]. Case was discussed with Dr. Garcia, who felt patient is appropriate for comfort care and has prognosis of < 1 month without any chemotherapy and with the ongoing infection and failure to thrive. Patient will be set up with iv antibiotics as outpatient per Dr. Hagan for gram neg bactremia.
[2018-02-11 11:09] VITALS: RESP 16
--- NOTE | 2018-02-11 12:37 | US ---
EXAMINATION TYPE: US paracentesis abd w/image DATE OF EXAM: 02/11/2018 COMPARISON: NONE HISTORY: Ascites. PROCEDURE: Maximal barrier technique was utilized. The skin overlying a suitable pocket of fluid was localized with ultrasound and the overlying skin was prepped and draped. Ultrasound was utilized with sterile technique. Lidocaine was used for local anesthesia and a skin lynne made with a scalpel. Catheter was advanced under direct ultrasound guidance into a suitable pocket of fluid and approximately liters of 4.2 fluid were removed. Catheter was withdrawn and hemostasis achieved. There is no immediate comp lication; the patient is discharged in stable condition. IMPRESSION: STATUS POST ULTRASOUND GUIDED PARACENTESIS FOR PALLIATION OF ASCITES. THIS PROCEDURE WA S PERFORMED BY THE UNDERSIGNED.
--- NOTE | 2018-02-11 16:45 | P.PN ---
Subjective Progress Note Date: 02/10/18 Patients GJ tube was pulled overnight. The balloon is ruptured. He is passing gas with small BM. Objective - Vital Signs Vital signs: Vital Signs Temp 97 F L 02/11/18 05:00 Pulse 88 02/11/18 12:00 Resp 16 02/11/18 12:00 BP 121/71 02/11/18 12:00 Pulse Ox 96 02/11/18 12:00 Intake & Output 02/10/18 02/11/18 02/11/18 18:59 06:59 18:59 Intake Total 450 130 Output Total 940 640 640 Balance -490 -510 -640 Weight 83.5 kg 83.5 kg Intake: IV 100 Sodium Chloride 0.9% 1, 100 000 ml @ 100 mls/hr IV . Q10H [facility]DY Rx#:[id number] Intake, IV Titration 350 Amount Fluconazole in NaCl,Iso- 50 Osm 100 mg In Saline 1 50ml.bag @ 50 mls/hr IVPB DAILY [facility]DY Rx#:[id number] Piperacillin-Tazobactam 3 50 .375 gm In Dextrose/Water 1 50ml.bag @ 12.5 mls/hr IVPB Q8H [facility]DY Rx#: [id number] Vancomycin 1,250 mg In 250 Sodium Chloride 0.9% 250 ml @ 125 mls/hr IVPB Q16H EDDY Rx#:[id number] Oral 120 Tube Feeding 10 Output: Drainage 340 340 340 Biliary drain 1 0 0 0 Biliary drain 2 40 40 40 G Tube 300 300 300 Urine 600 300 300 Other: Voiding Method Indwelling Catheter Indwelling Catheter Indwelling Catheter # Voids 0 0 0 - Constitutional General appearance: Present: cooperative - Respiratory Details: nonlabored - Cardiovascular Rhythm: regular - Gastrointestinal Gastrointestinal Comment(s): Soft distended nontender. PTC in place. GJ in place however balloon is ruptured - Psychiatric Psychiatric: Present: A&O x's 3 - Labs CBC & Chem 7: 02/10/18 07:50 02/11/18 05:40 Labs: Abnormal Lab Results - Last 24 Hours (Table) 02/11/18 02/11/18 Range/Units 05:40 05:40 PT 19.7 H (9.0-12.0) sec INR 2.2 H (<1.2) Chloride 110 H (98-107) mmol/L BUN 38 H (9-20) mg/dL Glucose 110 H (74-99) mg/dL Calcium 6.6 L (8.4-10.2) mg/dL Microbiology - Last 24 Hours (Table) 02/08/18 11:35 Blood Culture - Preliminary Blood No Growth after 72 hours 02/08/18 11:19 Blood Culture - Preliminary Blood No Growth after 72 hours 02/08/18 15:44 Gram Stain - Preliminary Paracentesis Fluid Body Fluid Culture - Preliminary Assessment and Plan Assessment: Stage IV esophageal cancer, biliary obstruction s/p PTC drain, ileus vs sbo resolving, gastric outlet obstruction likely secondary to compression from liver mets Plan: GJ tube can not be replaced here. IR does not have the ability and there are no tubes in the hopsital. The tube is loose and falling out. It will be replacedd with a G tube to hold the place and can be used for drainage. If the patient requires a new GJ he may need it placed at [facility] as an outpatient
[2018-02-11 17:03] VITALS: BP 117/78; PULSE 96; TEMP 97.8
--- NOTE | 2018-02-15 14:11 | CDI ---
Last Revision, May 2017 Documentation Clarification Form Date: 02/15/18 From: Augusta Chaz Shannan Armstrong, Welder Tech Hours-8:30 am & 5 pm M-F Admit Date: 02/06/2018 9:56:00 PM Patient Name: Shekhar Bustos Visit Number: [id number] Discharge Date: 02/11/18 ATTENTION: The Clinical Documentation Specialists (CDI) and [facility] Coding Staff appreciate your assistance in clarifying documentation. Please respond to the clarification below the line at the bottom and electronically sign. The CDI & [facility] Coding staff will review the response and follow-up if needed. Please note: Queries are made part of the Legal Health Record. If you have any questions, please contact the author of this message via ITS. 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 Documentation states: ascites Patient history/risk factors: Stage IV esophagal carcinoma Treatment: paracentesis In your professional opinion, do you agree with the pathology report specifying the peritoneal fluid consistent with adenocaadenocarcinoma of primary upper gastrointestinal vs pancreatobiliary tract origin? Yes No Other (please specify) Unable to determine Please continue to document in your progress notes and discharge summary in order to capture severity of illness and risk of mortality. Include clinical findings that support your diagnosis. MTDD
== END 2018-02-11 18:40 | disposition home health service (06) | DRG 871 ==
LOC: EC 17:26 → 6ICU 21:56 → 5ONC 02-08 21:06
PROVIDERS: ADMIT Internal Medicine; ATTEND Internal Medicine
PROC: 0W9G3ZZ Drainage of Peritoneal Cavity, Percutaneous Approach (ICD-10-PCS; principal; 2018-02-09)
PROC: 0W9G3ZZ Drainage of Peritoneal Cavity, Percutaneous Approach (ICD-10-PCS; 2018-02-11)
DX: A41.51 Sepsis due to Escherichia coli [E. coli] (principal); E43 Unspecified severe protein-calorie malnutrition; K83.1 Obstruction of bile duct; K75.0 Abscess of liver; K56.609 Unspecified intestinal obstruction, unspecified as to partial versus complete obstruction; R18.0 Malignant ascites; J90 Pleural effusion, not elsewhere classified; C78.7 Secondary malignant neoplasm of liver and intrahepatic bile duct; C79.51 Secondary malignant neoplasm of bone; C15.9 Malignant neoplasm of esophagus, unspecified; R64 Cachexia; B37.0 Candidal stomatitis; K31.1 Adult hypertrophic pyloric stenosis; Z66 Do not resuscitate; Z51.5 Encounter for palliative care; J44.9 Chronic obstructive pulmonary disease, unspecified; K22.2 Esophageal obstruction; D63.8 Anemia in other chronic diseases classified elsewhere; G89.4 Chronic pain syndrome; E78.5 Hyperlipidemia, unspecified; I10 Essential (primary) hypertension; G47.33 Obstructive sleep apnea (adult) (pediatric); F41.9 Anxiety disorder, unspecified; F32.9 Major depressive disorder, single episode, unspecified; K57.90 Diverticulosis of intestine, part unspecified, without perforation or abscess without bleeding; N40.0 Benign prostatic hyperplasia without lower urinary tract symptoms; K59.09 Other constipation; K64.8 Other hemorrhoids; H26.9 Unspecified cataract; M19.91 Primary osteoarthritis, unspecified site; Z99.81 Dependence on supplemental oxygen; Z68.28 Body mass index [BMI] 28.0-28.9, adult; Z79.899 Other long term (current) drug therapy; Z87.891 Personal history of nicotine dependence; Z92.3 Personal history of irradiation; Z92.21 Personal history of antineoplastic chemotherapy; Z87.01 Personal history of pneumonia (recurrent); Z98.52 Vasectomy status; Z93.1 Gastrostomy status; Z93.4 Other artificial openings of gastrointestinal tract status; Z86.010 Personal history of colon polyps; Z77.090 Contact with and (suspected) exposure to asbestos; Z98.41 Cataract extraction status, right eye; Z82.49 Family history of ischemic heart disease and other diseases of the circulatory system; Z81.8 Family history of other mental and behavioral disorders
CPT/HCPCS: 36415; 49083; 49465; 71045; 71046; 74018; 74177; 76705; 80048; 80053; 80202; 81001; 83605; 83690; 83735; 83880; 84100; 84484; 85025; 85610; 85730; 87040; 87070; 87077; 87086; 87186; 87205; 88108; 88305; 88341; 88342; 93005; 94640; 96365; 96366; 96368; 96375; 99291

== ENCOUNTER 2018-02-14 11:21 | Emergency (ER) | payer MEDICARE ==
[2018-02-14] MEDS ORDERED: SODIUM CHLORIDE 0.9% 1,000 ML IV STA ×3 (11:35→14:16)
--- NOTE | 2018-02-14 11:39 | ED ---
General Adult HPI - General Chief complaint: Weakness Stated complaint: Weakness Time Seen by Provider: 02/14/18 11:28 Source: patient, family, EMS, RN notes reviewed Mode of arrival: EMS Limitations: no limitations - History of Present Illness Initial comments: Patient is a pleasant 77-year-old male presenting to the emergency department with family for concerns regarding dehydration. 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 Patient does have liver drains and a feeding tube. Family states patient has been dehydrated several times recently with associated tachycardia and hypotensive that resolved with fluids. Patient complains of being thirsty and requests ice or water multiple times. Family states abdomen is also somewhat distended. Patient has a history of ascites and did have 3 L drained one week ago and 4 L drained 4 days ago. - Related Data Home Medications Medication Instructions Recorded Confirmed Albuterol Sulfate [Proair Hfa] 2 puff INHALATION RT-DAILY 12/28/17 02/14/18 Morphine Sulfate ER [Ms Contin] 30 mg PO Q12HR PRN 12/28/17 02/14/18 Prochlorperazine [Compazine] 10 mg PO Q6H PRN 12/28/17 02/14/18 Temazepam [Restoril] 15 mg PO HS PRN 12/28/17 02/14/18 Tiotropium [place] [Spiriva 1 puff INHALATION RT-DAILY 12/28/17 02/14/18 Respimat] Ipratropium-Albuterol Nebulize 3 ml INHALATION RT-BID PRN 01/05/18 02/14/18 [Duoneb 0.5 mg-3 mg/3 ml Soln] Lidocaine-Prilocaine Cream [Emla 1 applic TOPICAL DAILY PRN 01/05/18 02/14/18 Cream 2.5%/2.5%] Sennosides-Docusate Sodium 1 tab PO BID 02/06/18 02/14/18 [Senokot-S] Terazosin HCl 1 mg PO HS 02/06/18 02/14/18 Previous Rx's Medication Instructions Recorded fentaNYL 12MCG/HR PATCH [Duragesic 12 mcg TRANSDERM Q48H 3 Days #1 02/11/18 12MCG/HR] patch Ertapenem [INVanz] 1 gm IVPB Q24H #14 bag 02/12/18 Nystatin 100,000 Unit/ml Susp 5 ml PO QID #280 ml 02/12/18 [Mycostatin Oral Susp] Allergies Allergy/AdvReac Type Severity Reaction Status Date / Time No Known Allergies Allergy Verified 02/14/18 12:59 Review of Systems ROS Statement: Those systems with pertinent positive or pertinent negative responses have been documented in the HPI. ROS Other: All systems not noted in ROS Statement are negative. Constitutional: Denies: fever Eyes: Denies: eye pain ENT: Denies: ear pain Respiratory: Denies: dyspnea Cardiovascular: Denies: chest pain Endocrine: Reports: fatigue Gastrointestinal: Reports: abdominal pain Genitourinary: Denies: dysuria Musculoskeletal: Denies: back pain Skin: Denies: rash Neurological: Reports: weakness Past Medical History Past Medical History: Cancer, COPD, Hyperlipidemia, Hypertension, Osteoarthritis (OA), Pneumonia, Prostate Disorder, Sleep Apnea/CPAP/BIPAP Additional Past Medical History / Comment(s): HOME OXYGEN PRN. lt eye cataract that needs to have sx had rt cataract done already, pt stated he has esophageal cancer with mets to bone and liver (last chemo about 5 weeks ago). [facility] Feb 13/2018 per daughter History of Any Multi-Drug Resistant Organisms: None Reported Past Surgical History: Hernia Repair, Orthopedic Surgery Additional Past Surgical History / Comment(s): VASECTOMY.rt knee arthroscopy, rt eye cataract. egd/dilations/bx, peg tube, drains to liver abscess Past Anesthesia/Blood Transfusion Reactions: No Reported Reaction Past Psychological History: Anxiety, Depression Smoking Status: Former smoker Past Alcohol Use History: None Reported Past Drug Use History: None Reported - Past Family History Mother Family Medical History: Coronary Artery Disease (CAD), Dementia Additional Family Medical History / Comment(s): "heart disease" Father Additional Family Medical History / Comment(s): "heart disease" General Exam Limitations: no limitations General appearance: alert, in no apparent distress Head exam: Present: atraumatic Eye exam: Present: normal appearance ENT exam: Present: mucous membranes dry Respiratory exam: Present: normal lung sounds bilaterally Cardiovascular Exam: Present: tachycardia GI/Abdominal exam: Present: distended (Ascites), tenderness (Mild diffuse tenderness), normal bowel sounds, other (Gastric tube is present. Two drain tubes from the right upper abdomen) Extremities exam: Present: normal inspection Neurological exam: Present: alert Psychiatric exam: Present: normal affect, normal mood Skin exam: Present: normal color Course Vital Signs 02/14/18 02/14/18 02/14/18 11:22 12:00 13:09 Temperature 97.9 F Pulse Rate 151 H 141 H 138 H Pulse Rate [ Preschool Aide ] Respiratory 22 18 Rate Blood Pressure 81/53 70/47 74/55 O2 Sat by Pulse 88 L 89 L 92 L Oximetry 02/14/18 02/14/18 02/14/18 13:59 14:20 15:29 Temperature 97.1 F L Pulse Rate 134 H 132 H Pulse Rate [ 134 H Preschool Aide ] Respiratory 18 18 Rate Blood Pressure 92/66 90/58 O2 Sat by Pulse 93 L 96 Oximetry - Reevaluation(s) Reevaluation #1: 02/14/18 14:37 Patient reevaluated. Blood pressure 92 systolic. Heart rate 1:30. Discussion had with patient and family. Daughter did have discussion with visiting nurse and would like to have patient placed on hospice. Patient is present and aware. 02/14/18 15:28 Repeat EKG shows narrow Tachycardia with a rate of 132. QRS 66. QT 290. QTC 429. Normal axis. Low QRS voltage. No acute ST change. EKG Findings - EKG Comments: EKG Findings:: SVT with a rate of 151. QRS 64. QT to 72. QTC 431. Normal axis. Low voltage QRS. Nonspecific T waves. Medical Decision Making - Medical Decision Making Further discussion again had with patient and family and they are again requesting discharge. The plan is to go home and start with hospice. I did speak with visiting nurse [place] who will help set up hospice, prescription will be written. Patient and family are aware that normally I would not discharge of patient with elevated heart rate like this however there case with starting hospice I will allow this for patient comfort. Patient is requesting discharge and refusing hospitalization. Multiple family members are present. - Lab Data Result diagrams: 02/14/18 11:27 02/14/18 11:27 Lab Results 02/14/18 02/14/18 02/14/18 Range/Units 11:27 11:27 11:27 WBC 13.1 H (3.8-10.6) k/uL RBC 3.23 L (4.30-5.90) m/uL Hgb 10.9 L (13.0-17.5) gm/dL Hct 35.5 L (39.0-53.0) % MCV 109.9 H (80.0-100.0) fL MCH 33.7 (25.0-35.0) pg MCHC 30.7 L (31.0-37.0) g/dL RDW 19.4 H (11.5-15.5) % Plt Count 166 (150-450) k/uL Neutrophils % 83 % Lymphocytes % 8 % Monocytes % 9 % Eosinophils % 0 % Basophils % 0 % Neutrophils # 10.9 H (1.3-7.7) k/uL Lymphocytes # 1.0 (1.0-4.8) k/uL Monocytes # 1.1 H (0-1.0) k/uL Eosinophils # 0.0 (0-0.7) k/uL Basophils # 0.0 (0-0.2) k/uL Polychromasia Present Hypochromasia Moderate Anisocytosis Slight Macrocytosis Marked PT (9.0-12.0) sec INR (<1.2) APTT (22.0-30.0) sec Sodium 137 (137-145) mmol/L Potassium 5.0 (3.5-5.1) mmol/L Chloride 112 H (98-107) mmol/L Carbon Dioxide 17 L (22-30) mmol/L Anion Gap 8 mmol/L BUN 62 H (9-20) mg/dL Creatinine 1.77 H (0.66-1.25) mg/dL Est GFR (CKD-EPI)AfAm 42 (>60 ml/min/1.73 sqM) Est GFR (CKD-EPI)NonAf 36 (>60 ml/min/1.73 sqM) Glucose 94 (74-99) mg/dL Lactic Ac Sepsis Rflx Plasma Lactic Acid Julian 2.6 H* (0.7-2.0) mmol/L Calcium 6.2 L* (8.4-10.2) mg/dL Ionized Calcium [place] (4.5-5.3) mg/dL Magnesium 2.9 H (1.6-2.3) mg/dL Total Bilirubin 2.3 H (0.2-1.3) mg/dL AST 285 H (17-59) U/L ALT 125 H (21-72) U/L Alkaline Phosphatase 270 H (38-126) U/L Total Protein 4.4 L (6.3-8.2) g/dL Albumin 1.8 L (3.5-5.0) g/dL Urine Color Urine Appearance (Clear) Urine pH (5.0-8.0) Ur Specific [place] (1.001-1.035) Urine Protein (Negative) Urine Glucose (UA) (Negative) Urine Ketones (Negative) Urine Blood (Negative) Urine Nitrite (Negative) Urine Bilirubin (Negative) Urine Urobilinogen (<2.0) mg/dL Ur Leukocyte Esterase (Negative) Urine RBC (0-5) /hpf Urine WBC (0-5) /hpf Amorphous Sediment (None) /hpf Hyaline Casts (0-2) /lpf Urine Mucus (None) /hpf 02/14/18 02/14/18 02/14/18 Range/Units 11:27 12:12 13:10 WBC (3.8-10.6) k/uL RBC (4.30-5.90) m/uL Hgb (13.0-17.5) gm/dL Hct (39.0-53.0) % MCV (80.0-100.0) fL MCH (25.0-35.0) pg MCHC (31.0-37.0) g/dL RDW (11.5-15.5) % Plt Count (150-450) k/uL Neutrophils % % Lymphocytes % % Monocytes % % Eosinophils % % Basophils % % Neutrophils # (1.3-7.7) k/uL Lymphocytes # (1.0-4.8) k/uL Monocytes # (0-1.0) k/uL Eosinophils # (0-0.7) k/uL Basophils # (0-0.2) k/uL Polychromasia Hypochromasia Anisocytosis Macrocytosis PT 18.3 H (9.0-12.0) sec INR 2.0 H (<1.2) APTT 30.4 H (22.0-30.0) sec Sodium (137-145) mmol/L Potassium (3.5-5.1) mmol/L Chloride (98-107) mmol/L Carbon Dioxide (22-30) mmol/L Anion Gap mmol/L BUN (9-20) mg/dL Creatinine (0.66-1.25) mg/dL Est GFR (CKD-EPI)AfAm (>60 ml/min/1.73 sqM) Est GFR (CKD-EPI)NonAf (>60 ml/min/1.73 sqM) Glucose (74-99) mg/dL Lactic Ac Sepsis Rflx Y Plasma Lactic Acid Julian (0.7-2.0) mmol/L Calcium (8.4-10.2) mg/dL Ionized Calcium [place] 4.2 L (4.5-5.3) mg/dL Magnesium (1.6-2.3) mg/dL Total Bilirubin (0.2-1.3) mg/dL AST (17-59) U/L ALT (21-72) U/L Alkaline Phosphatase (38-126) U/L Total Protein (6.3-8.2) g/dL Albumin (3.5-5.0) g/dL Urine Color Urine Appearance (Clear) Urine pH (5.0-8.0) Ur Specific [place] (1.001-1.035) Urine Protein (Negative) Urine Glucose (UA) (Negative) Urine Ketones (Negative) Urine Blood (Negative) Urine Nitrite (Negative) Urine Bilirubin (Negative) Urine Urobilinogen (<2.0) mg/dL Ur Leukocyte Esterase (Negative) Urine RBC (0-5) /hpf Urine WBC (0-5) /hpf Amorphous Sediment (None) /hpf Hyaline Casts (0-2) /lpf Urine Mucus (None) /hpf 02/14/18 Range/Units 14:30 WBC (3.8-10.6) k/uL RBC (4.30-5.90) m/uL Hgb (13.0-17.5) gm/dL Hct (39.0-53.0) % MCV (80.0-100.0) fL MCH (25.0-35.0) pg MCHC (31.0-37.0) g/dL RDW (11.5-15.5) % Plt Count (150-450) k/uL Neutrophils % % Lymphocytes % % Monocytes % % Eosinophils % % Basophils % % Neutrophils # (1.3-7.7) k/uL Lymphocytes # (1.0-4.8) k/uL Monocytes # (0-1.0) k/uL Eosinophils # (0-0.7) k/uL Basophils # (0-0.2) k/uL Polychromasia Hypochromasia Anisocytosis Macrocytosis PT (9.0-12.0) sec INR (<1.2) APTT (22.0-30.0) sec Sodium (137-145) mmol/L Potassium (3.5-5.1) mmol/L Chloride (98-107) mmol/L Carbon Dioxide (22-30) mmol/L Anion Gap mmol/L BUN (9-20) mg/dL Creatinine (0.66-1.25) mg/dL Est GFR (CKD-EPI)AfAm (>60 ml/min/1.73 sqM) Est GFR (CKD-EPI)NonAf (>60 ml/min/1.73 sqM) Glucose (74-99) mg/dL Lactic Ac Sepsis Rflx Plasma Lactic Acid Julian (0.7-2.0) mmol/L Calcium (8.4-10.2) mg/dL Ionized Calcium [place] (4.5-5.3) mg/dL Magnesium (1.6-2.3) mg/dL Total Bilirubin (0.2-1.3) mg/dL AST (17-59) U/L ALT (21-72) U/L Alkaline Phosphatase (38-126) U/L Total Protein (6.3-8.2) g/dL Albumin (3.5-5.0) g/dL Urine Color Dark Yellow Urine Appearance Slightly Cloudy (Clear) Urine pH 6.0 (5.0-8.0) Ur Specific [place] 1.030 (1.001-1.035) Urine Protein 3+ H (Negative) Urine Glucose (UA) Negative (Negative) Urine Ketones Negative (Negative) Urine Blood Large (Negative) Urine Nitrite Negative (Negative) Urine Bilirubin Negative (Negative) Urine Urobilinogen 2.0 (<2.0) mg/dL Ur Leukocyte Esterase Moderate (Negative) Urine RBC >182 H (0-5) /hpf Urine WBC 13 H (0-5) /hpf Amorphous Sediment Moderate H (None) /hpf Hyaline Casts 2 (0-2) /lpf Urine Mucus Rare H (None) /hpf - Radiology Data Radiology results: image reviewed (Abdominal x-ray shows no acute abnormality. Two-view chest x-ray shows left-sided effusion. Mild.) Disposition Clinical Impression: Dehydration, Distended abdomen, Metastasis from esophageal cancer Disposition: HOME SELF-CARE Condition: Poor Instructions: Dehydration (ED) Additional Instructions: Please follow-up with primary care physician and Dr. Perez tomorrow. Please make contact with hospice nurse upon discharge. Return for uncontrolled pain, worsening symptoms or any other concerns. Is patient prescribed a controlled substance at d/c from ED?: No Referrals: Martin Ron MD [Primary Care Provider] - 1-2 days Time of Disposition: 15:44
[2018-02-14 12:04] LABS: Albumin 1.8 g/dL (3.5-5.0); Magnesium 2.9 mg/dL (1.6-2.3); Total Bilirubin 2.3 mg/dL (0.2-1.3); Total Protein 4.4 g/dL (6.3-8.2)
[2018-02-14 12:08] LABS: Anisocytosis Slight; Basophils % (A) 0 %; Eosinophils % (A) 0 %; HCT 35.5 % (39.0-53.0); HGB 10.9 gm/dL (13.0-17.5); Hypochromasia Moderate; Lymphocytes % (A) 8 %; MCH 33.7 pg (25.0-35.0); MCHC 30.7 g/dL (31.0-37.0); MCV 109.9 fL (80.0-100.0); Macrocytosis Marked; Mean Platelet Volume 8.6; Monocytes # (A) 1.1 k/uL (0-1.0); Monocytes % (A) 9 %; Neutrophils # (A) 10.9 k/uL (1.3-7.7); Neutrophils % (A) 83 %; Platelet Count 166 k/uL (150-450); RBC 3.23 m/uL (4.30-5.90); RDW 19.4 % (11.5-15.5); WBC 13.1 k/uL (3.8-10.6)
[2018-02-14 12:12] LABS: Calcium 6.2 mg/dL (8.4-10.2); Partial Thromboplastin Time 30.4 sec (22.0-30.0); Prothrombin Time 18.3 sec (9.0-12.0)
[2018-02-14 12:24] LABS: Polychromasia Present
[2018-02-14] MEDS ORDERED: CALCIUM GLUCONATE 1,000 MG in SODIUM CHLORIDE 0.9% 100 ML IVPB ONE (12:39)
--- NOTE | 2018-02-14 12:42 | XR ---
EXAMINATION TYPE: XR abdomen 1V , 2 VIEWS DATE OF EXAM ORDERED: 02/14/2018 HISTORY: Pain. COMPARISON: Previous study dated 02/10/2018. FINDINGS: There is atelectatic change present at the left lung base. There is a gastrostomy tube in place. There is barium present within the transverse and descending colons from previous contrast examinatio n. There is mild gaseous distention of the right side of the colon. There is no evidence of obstructi on or free air. IMPRESSION: NO ACUTE INTRA-ABDOMINAL ABNORMALITY.
--- NOTE | 2018-02-14 12:43 | XR ---
EXAMINATION TYPE: XR chest 2V DATE OF EXAM: 02/14/2018 HISTORY: Weakness. REFERENCE: Previous study dated 02/07/2018. FINDINGS: There is a MediPort in place on the left. There is minimal atelectasis in the right lung. There is blunting of the left CP angle. There is some associated atelectatic change. I suspect a left effusion. The heart is not enlarged. IMPRESSION: 1. LEFT-SIDED EFFUSION. 2. BILATERAL AREAS OF ATELECTASIS.
[2018-02-14 13:09] VITALS: RESP 18
[2018-02-14 14:47] LABS: Amorphous Sediment,Urine Moderate /hpf; Hyaline Casts,Urine 2 /lpf (0-2); Mucus,Urine Rare /hpf; RBC,Urine >182 /hpf (0-5); WBC,Urine 13 /hpf (0-5)
[2018-02-14 15:00] LABS: Appearance,Urine Slightly Cloudy (Clear); Color,Urine Dark Yellow; Protein,Urine 3+ (Negative)
[2018-02-14 15:01] LABS: Bilirubin,Urine Negative (Negative); Blood,Urine Large (Negative); Glucose,Urine (UA) Negative (Negative); Ketones,Urine Negative (Negative); Leukocyte Esterase,Urine Moderate (Negative); Nitrite,Urine Negative (Negative)
[2018-02-14] MEDS ORDERED: MORPHINE SULFATE 4 MG/ML SYRINGE IVP STA (16:35)
[2018-02-14 16:48] VITALS: BP 90/60; PULSE 129; TEMP 97
== END 2018-02-14 16:49 | disposition home or self-care (01) ==
LOC: EC 11:21
DX: E86.0 Dehydration (principal); R14.0 Abdominal distension (gaseous); J91.8 Pleural effusion in other conditions classified elsewhere; R00.0 Tachycardia, unspecified; R18.8 Other ascites; J44.9 Chronic obstructive pulmonary disease, unspecified; I10 Essential (primary) hypertension; N42.9 Disorder of prostate, unspecified; G47.30 Sleep apnea, unspecified; Z87.891 Personal history of nicotine dependence; Z79.899 Other long term (current) drug therapy; Z85.01 Personal history of malignant neoplasm of esophagus; Z85.830 Personal history of malignant neoplasm of bone; Z85.05 Personal history of malignant neoplasm of liver; Z92.21 Personal history of antineoplastic chemotherapy; Z99.89 Dependence on other enabling machines and devices; Z93.1 Gastrostomy status
CPT/HCPCS: 36415; 93005; 80053; 82330; 83605; 83735; 85025; 85610; 85730; 81001; 87040; 87086; 71046; 74018; 99285; 96365; 96375; 96361 ×2; J2270; J0610